=== PATIENT | male | born 1980 | race Caucasian/White ===

== ENCOUNTER 2024-11-29 08:23 | Emergency (ER) | payer OTHER, SELFPAY ==
--- NOTE | ~2024-11-29 | XR_ITS ---
XR shoulder RT min 2V Ordering provider: Tangela Corral History: . fall pain TO RT SHOULDER . Comparison: None. FINDINGS: BONES: Comminuted fracture in the proximal metaphysis of the right humerus. Possible fracture of the right fourth rib. JOINT SPACES: The acromioclavicular joint is normal. The glenohumeral joint is normal. SOFT TISSUES: Normal. IMPRESSION: Comminuted fracture of the proximal metaphysis of the right humerus. Possible fracture of the right fourth rib. Reviewed, dictated and finalized at location A. INSPECTOR
[2024-11-29 08:26] VITALS: BP 132/96; PULSE 108; RESP 16; TEMP 36.8; O2SAT 95
[2024-11-29 08:30] VITALS: BP 136/90; PULSE 108; RESP 16; O2SAT 100
[2024-11-29 09:00] VITALS: BP 138/82; PULSE 97; RESP 17; O2SAT 97
--- NOTE | 2024-11-29 09:29 | ED_ITS ---
HPI - Extremity Injury (Upper) General Chief Complaint: Extremity Injury, Upper Stated Complaint: Fall, shoulder pain Time Seen by Provider: 11/29/24 09:01 Source: patient Mode of arrival: EMS Limitations: no limitations History of Present Illness HPI narrative: Patient is a 44-year-old male who presents to the ED with report of right shoulder pain. Patient reports he tripped and fell walking up the stairs and h is R shoulder took the brunt of the fall. Complains of severe pain to right shoulder. Denies any other injury. Denies head injury or LOC. Denies neck or back pain. Denies rib pain. Denies numbness. Patient was given fentanyl in route to the ED by EMS. Related Data Allergies Allergy/AdvReac Type Severity Reaction Status Date / Time Penicillins Allergy Unknown Unknown Verified 11/29/24 08:33 Review of Systems Review of Systems: All systems reviewed & are unremarkable except as noted in HPI. All systems reviewed & are unremarkable except as noted in HPI and below Exam Narrative: GENERAL: Well appearing, obese with BMI of 34.8, non-toxic, in no acute distress. HEAD: Normocephalic, atraumatic. RESPIRATORY: Airway patent, respirations nonlabored. CARDIOVASCULAR: Regular rate and rhythm. Radial pulses strong and easily palpable MUSCULOSKELETAL: Moves all extremities. No gross deformities. Limited ROM of RUE due to pain. Focal TTP over proximal humerus/shoulder joint with swelling noted. Sensation intact throughout right upper extremity. Minimal tenderness over lateral epicondyle R elbow. Able to move at R wrist and fingers without pain. SKIN: Warm, dry, normal color. NEURO: A&O X3. Speech clear. Cranial nerves II-XII grossly intact. Steady gait. No ataxic movements. PSYCHIATRIC: Appropriate mood and affect. Normal interaction. Course Vital Signs Vital signs: Vital Signs Temperature 98.3 F 11/29/24 08:26 Pulse Rate 108 H 11/29/24 08:26 Respiratory Rate 16 11/29/24 08:26 Blood Pressure 132/96 H 11/29/24 08:26 Pulse Oximetry 95 11/29/24 08:26 Oxygen Delivery Room Air 11/29/24 08:26 Temperature 98.3 F 11/29/24 08:26 Pulse Rate 98 11/29/24 11:49 Respiratory Rate 20 11/29/24 11:49 Blood Pressure 127/73 11/29/24 11:49 Pulse Oximetry 98 11/29/24 11:49 Oxygen Delivery Room Air 11/29/24 08:26 MDM - Extremity Injury (Upper) MDM Narrative Medical decision making narrative: Patient presented to ED status post fall up the stairs, complaining of pain to right shoulder. Vital signs are stable. Mildly tachycardic, likely related to pain. He was given fentanyl en route to the ED by EMS. Denies wanting anything further for pain upon my initial evaluation. He is neurovascularly intact. Good radial pulses. Sensation intact. X-ray of right shoulder showing comminuted proximal right humerus fracture. Consistent with clinical picture. Does also show possible fracture right 4th rib. Patient does not have any tenderness along his anterior lateral ribcage. Denies pleuritic pain. Low suspicion for acute rib fracture. No evidence of pneumothorax. Oxygen is stable on room air. Patient placed in sling in the ED. Will discuss with Ortho. Discussed case with [facility] ortho for Dr. Cox, recommended referral to tertiary center. Discussed case with Dr. West, ortho @ [facility], can f/u in the clinic in 1 week. [phone] Patient agreement this plan. Feels comfortable with discharge home at this time. Pain medications sent to pharmacy. Given strict return precautions. Patient discharged in stable condition. Medical Records Attestation: I reviewed the patient's medical records. Imaging Data Attestation: I personally reviewed and interpreted this imaging study as follows: Radiologist's impression: ITS Impressions Shoulder X-Ray 11/29/24 08:59 IMPRESSION: Comminuted fracture of the proximal metaphysis of the right humerus. Possible fracture of the right fourth rib. Discharge Plan Discharge Clinical Impression: Fracture of proximal end of humerus Qualifiers: Encounter type: initial encounter Fracture type: closed Fracture morphology: other fracture Fracture alignment: displaced Laterality: right Qualified Code(s): S42.291A - Other displaced fracture of upper end of right humerus, initial encounter for closed fracture Fall on stairs Qualifiers: Encounter type: initial encounter Qualified Code(s): W10.9XXA - Fall (on) (from) unspecified stairs and steps, initial encounter Patient Disposition: Home, Self-Care Condition: Stable Instructions: Antibiotic Form, How to Use a Sling (ED), Proximal Humerus Fracture (ED) Additional Instructions: Follow-up with [facility] for further evaluation management of fracture. Call office to follow up in the clinic within the next 1 week - [phone]. Take imaging disc with you. Wear splint at all times for comfort and support. You may remove this while bathing or sleeping, but do not use arm. Recommend frequent icing to shoulder. Recommend Tylenol and ibuprofen around the clock as needed for pain. Oxycodone as needed for more severe/breakthrough pain. Take muscle relaxers as needed and prescribed. Recommend taking these at night as they may cause sedation. Do not drive, operate heavy machinery, drink alcohol while on muscle relaxers as this may cause further sedation. Return to the ED if you experience worsening or severe pain, recurrent fall or injury, numbness, or any other symptoms of concern. Patient Language: Luxembourgish Prescriptions: New oxycodone 5 mg tablet 5 mg PO Q6H PRN (Reason: pain) Qty: 20 0RF cyclobenzaprine 5 mg tablet 5 mg PO TID PRN (Reason: muscle spasm) Qty: 15 0RF Follow-up/Referrals: UNKNOWN,DOCTOR [Primary Care Provider] - Stand Alone Forms: Work/School Release IP Time of Disposition: 12:49
[2024-11-29 10:00] VITALS: BP 130/78; PULSE 99; RESP 16; O2SAT 98
[2024-11-29 11:49] VITALS: BP 127/73; PULSE 98; RESP 20; O2SAT 98
[2024-11-29] MEDS: HYDROmorphone HCL INJ (*CRX) 1 MG/ML SYR 0.5 MG IV PUSH (11:54)
[2024-11-29] MEDS: HYDROcodone/acetaminophen (*CRX) 5-325 MG TABLET 1 TAB PO (12:43)
[2024-11-29] MEDS: KETOROLAC 30 MG/ML VIAL (*BKC) IV PUSH (12:43)
== END 2024-11-29 13:26 | disposition home or self-care (01) ==
PROVIDERS: Emergency Provider Physician Assistant
DX: S42.291A Other displaced fracture of upper end of right humerus, initial encounter for closed fracture (principal); W10.9XXA Fall (on) (from) unspecified stairs and steps, initial encounter
CPT/HCPCS: 73030; 96374; 96375; 99284; A4565; A9270; J1171; J1885

== ENCOUNTER 2024-12-25 10:50 | Emergency (ER) | payer OTHER, SELFPAY ==
--- OUTSIDE RECORDS SUMMARY | 2024-12-25 10:52 | XMS_ITS | Encounter Summary ---
Author Organization [facility] Address [address] [place] [address] Phone Care Team Providers Care Human Resources Project Coordinator Name Role Phone Salvador Love MD Primary Care Provider Curry Short DPM Unavailable [phone] Fernando Beyer MD Unavailable Reason for Visit * Reason Comments Medication Refill Encounter Details Date Type Department Care Team (Late st Contact Info) Description 06/22/2020 Refill [facility] [address] [place] [address] Fernando Beyer MD [address] [place] [id number] Medication Refill Social History Tobacco Use Types Packs/Day Years Used Date Smoking Tobacco: Former Cigarettes 1 10 0 11/17/1999 - 11/17/2009 Smokeless Tobacco: Never Alcohol Use Standard Drinks/Week Comments Yes 0 (1 standard drink = 0.6 oz pure alcohol) 1x or 2x a wk - 2 or 3 drinks during those times PHQ-2 Answer Date Recorded PHQ-2 Score 0 07/20/2019 Sexually Active Control Partners Comments Yes Female Sex and Gender Information Value Date Recorded Sex Assigned at Not on file Legal Sex Male 3:09 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 STEWARD/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 Gender Identity Not on file Sexual Orientation Not on file documented as of this encounter Plan of Treatment Upcoming Encounters Date Type Department Care Team (Late st Contact Info) Description 12/28/2024 6:00 PM CHIEF STEWARD/STEWARDESS Office Visit [facility] [place], [place] [address] [place] [address] Salvador Love MD [address] [address] documented as of this encounter Visit Diagnoses Not on filedocumented in this encounter Additional Health Concerns Assessment Noted Time PHQ-9 Depression Total Score: 0 11/18/19 20 1:49 PM CHIEF STEWARD/STEWARDESS documented as of this encounter Care Teams Human Resources Project Coordinator Relationship Specialty Start Date End Date Salvador Love MD [id number] [address] PCP - General Family Medicine 10/17/15 Curry Short DPM [address] [address] Consulting Physician Podiatry 05/08/17 Fernando Beyer MD [address] [place] [address] Consulting Physician Neurology 12/02/22 documented as of this encounter
--- OUTSIDE RECORDS SUMMARY | 2024-12-25 10:52 | XMS_ITS ---
Author Organization [facility] Address [address] [place], [place] [id number] Care Team Providers Care Fishing Tool Supervisor Name Role Phone SALVATORE CLARK Unavailable [phone] Salvador Love Unavailable Unavailable Allergies Allergen (clinical drug ingredient) Drug/Non Drug Allergy documented on EMR Reaction Allergy Type Onset Date Status amoxicillin Amoxicillin Unknown Drug Allergy 04/20/2021 ac tive REASON FOR VISIT *General care Vital Signs Height 71.00 in 03/26/2024 Weight 270 lbs 03/26/2024 BMI 37.65 kg/m2 03/26/2024 Height-cm 180.34 cm 03/26/2024 Weight-kg 122.47 kg 03/26/2024 Encounters Encounter Location Date Provider Diagnosis [facility] [address] [place], [place] [id number] 03/26/2024 SALVATORE CLARK Fungal infection of nail B35.1 ; Pain in right toe(s) M79.674 ; Pain in left toe(s) M79.675 and Atherosclerosis of [place] arteries of extremities with intermittent claudication, bilateral legs I70.213 Assessments Encounter Date Diagnosis (ICD Code) Assessment Notes Treatment Notes Treatment Clinical Notes Section Notes 03/26/2024 Fungal infection of nail (ICD-10 - B35.1) 03/26/2024 Pain in right toe(s) (ICD-10 - M79.674) 03/26/2024 Pain in left toe(s) (ICD-10 - M79.675) 03/26/2024 Atherosclerosis of [place] arteries of extremities with intermittent claudication, bilateral legs (ICD-10 - I70.213) 03/26/2024 Other Nails 1-5 Bilateral were debrided extensively with nail nippers and emery board, reducing length and girth to pink healthy tissue with any subungual debris and necrotic tissue removed Plan Of Treatment Treatment Notes Assessment Notes Other Nails 1-5 Bilateral were debrided extensively with nail nippers and emery board, reducing length and girth to pink healthy tissue with any subungual debris and necrotic tissue removed Progress Notes * JEYSALVADOR PDOB:[birth year] (44 yo M)Acc No.[id number]:03/26/2024 Patient: SALVADOR CHÁVEZ Provider: Apolinar Clark DPM :1980 A ge:44 Y S ex:Male Date:03/26/2024 Address:[address] [place] [address] Subjective: * Chief Complaints: * 1 . *General care. * HPI: H PI: General care P atient presents to the office for diabetic foot care. Patient states that their nails are thickened, elongated and painful. Patient states that it is aggravated by shoe gear. Onset is gradual. Patient denies taking blood thinners. Date last seen by Dr. Love was 10/2023. Initials sea. * ROS: G eneral / Constitutional: Patient denies c hange in appetite, fatigue, chills, fever.? C ardiovascular: Chest pain d enies. N eurologic: Loss of use of extremity d enies. * Medical History: * Family History: F ather: PRN - Father: :: Cancer,,known absent . * Social History: M igrated Social History: M igrated Social History: Alcohol intake : , History of tobacco use : , Smoking Status : Former tobacco user. * Allergies: A moxicillin: Allergy - Onset Date 04/20/2021. Objective: * Vitals: W t:270lbs, Wt-k.47 kg, Ht: 71.00 in, Ht-cm: 180.34 cm, BMI:37.65Index, Body Surface Area: 2.47. * Examination: P hysical Examination: Gen: T he patient is awake, alert, well developed, well groomed and well nourished. They are in no apparent distress. . Musc: T here is no pain on palpation. Foot structure is normal bilateral . Derm: T here is absent hair growth on bilateral feet. There are pigmentary changes of bilateral foot. The skin color is red. The skin texture is thin and shiny. Distal cooling noted in bilateral feet. Nails are thick, discolored, and dystrophic with subungual debris. They are painful to palpation. . Neuro: G rossly intact to light touch bilateral . Vasc: P osterior tibialis pulse 0/4 bilaterally. Dorsalis pedis pulse 0/4 bilaterally. No edema noted. Capillary fill time > 3 seconds to all digits. . Assessment: * Assessment: 1. F ungal infection of nail - B35.1 (Primary) 2 . P ain in right toe(s) - M79.674 3 . P ain in left toe(s) - M79.675 4 . A therosclerosis of [place] arteries of extremities with intermittent claudication, bilateral legs - I70.213 Plan: * Treatment: * Billing Information: * Visit Code: 46014 Office Visit, Est Pt., Level 3. * Procedure Codes: * Sign off status: Completed true * Provider: Apolinar Clark DPM Date: 0 03/26/2024 Generated for Zoey morgan/Randell/Jenny on: 0 12/25/2024 10:52 AM WET PAN OPERATOR History and Physical Notes * HPI (History of Present Illness) Category Sub-Category Detail Notes Category Not es HPI General care Patient presents to the office for diabetic foot care. Patient states that their nails are thickened, elongated and painful. Patient states that it is aggravated by shoe gear. Onset is gradual. Patient denies taking blood thinners. Date last seen by Dr. Love was 10/2023. Initials sea Examination Category Sub-Category Detail Notes Category Not es Physical Examination Gen: The patient is awake, alert, well developed, well groomed and well nourished. They are in no apparent distress. Vasc: Posterior tibialis p ulse 0/4 bilaterally. Dorsalis pedis pulse 0/4 bilaterally. No edema noted. Capillary fill time > 3 seconds to all digits. Neuro: Grossly intact to li ght touch bilateral Musc: There is no pain on palpation. Foot structure is normal bilateral Derm: There is absent hair growth on bilateral feet. There are pigmentary changes of bilateral foot. The skin color is red. The skin texture is thin and shiny. Distal cooling noted in bilateral feet. Nails are thick, discolored, and dystrophic with subungual debris. They are painful to palpation.
--- OUTSIDE RECORDS SUMMARY | 2024-12-25 10:52 | XMS_ITS | Encounter Summary ---
Author Organization [facility] Address [address] [place] [address] Phone Care Team Providers Care Claims Attorney Name Role Phone Salvador Love MD Primary Care Provider Curry Short DPRed Unavailable [phone] Fernando Beyer MD Unavailable Reason for Visit * Reason Comments Medication Refill Encounter Details Date Type Department Care Team (Late st Contact Info) Description 12/05/[facility] [address] [place] [address] Salvador Love MD [address] [address] Medication Refill Social History Tobacco Use Types [...] file Legal Sex Male 3:09 AM CHIEF SUBSTATION OPERATOR Gender Identity Not on file Sexual Orientation Not on file COVID-19 Exposure Response Date Recorded In the last month, have you been in contact with someone who was confirmed or suspected to have Coronavirus / COVID-19? No / Unsure 11/06/2020 1:26 PM CHIEF SUBSTATION OPERATOR documented as of this encounter Plan of Treatment Upcoming Encounters Date Type Department Care Team (Late st Contact Info) Description 12/28/2024 6:00 PM CHIEF SUBSTATION OPERATOR Office [facility] [address] [place] [address] Salvador Love MD [address] [address] documented as of this encounter Visit Diagnoses Not on filedocumented in this encounter Additional Health Concerns Assessment Noted Time PHQ-9 Depression Total Score: 0 11/18/19 20 1:49 PM CHIEF SUBSTATION OPERATOR documented as of this encounter Care Teams Claims Attorney Relationship Specialty Start Date End Date Salvador Love MD [address] [address] PCP - General Family Medicine 10/17/15 Curry Short DPM [address] [address] Consulting Physician Podiatry 05/08/17 Fernando Beyer MD [address] [place] [address] Consulting Physician Neurology 12/02/22 documented as of this encounter
[2024-12-25 10:53] VITALS: BP 153/77; PULSE 111; RESP 20; TEMP 36.6; O2SAT 98
--- OUTSIDE RECORDS SUMMARY | 2024-12-25 10:53 | XMS_ITS | Clinical Summary ---
Author Organization [facility] [address] [place] [id number] Care Team Providers Care Order To Delivery Supervisor Name Role Phone Salvador Love MD Primary Care Provider + [phone] Allergies Active Allergy Reactions Criticality Noted Date Comments Amoxicillin Penicillins Other (See comments) Reaction: Unknown, Medications acetone, urine, test (acetone, urine, test) strip Test in case of nausea or vomiting of persistently elevated BG 100 strip 11 10/20/20 19 Active clotrimazole-beta methasone (LOTRISONE) cream APPLY TO RASH ON LEFT ANKLE TWICE DAILY 10/27/20 21 Active infusion set for insulin pump infusion set Change infusion set every 2 days. 50 each 3 02/12/20 22 Active amitriptyline (ELAVIL) 50 mg tablet 06/16/20 22 Active dorzolamide-timol oL (COSOPT) 22.3-6.8 mg/mL ophthalmic solution INSTILL ONE DROP INTO LEFT EYE TWICE DAILY 11/03/20 22 Active sildenafiL (VIAGRA) 100 mg tablet TAKE 1 TABLET BY MOUTH ONCE DAILY NEEDED FOR ERECTILE DYSFUNCTION 12/02/19 23 Active lisinopriL (PRINIVIL,ZESTRIL ) 5 mg tablet Take 1 tablet (5 mg total) by mouth daily 90 tablet 3 01/17/20 23 Active glucagon (Baqsimi) 3 mg/actuation spray,non-aerosol Administer 1 spray into one nostril as needed (hypoglycemia) 2 each 11 08/20/20 23 Active NovoLOG 100 unit/mL vial for injection Use via insulin pump up to 150 units daily 150 mL 3 03/15/20 24 Active atorvastatin (LIPITOR) 40 mg tabletIndications :Type 1 diabetes mellitus with hyperglycemia (HCC) TAKE 1 TABLET DAILY 90 tablet 1 08/24/20 24 Active fingolimod (GILENYA) 0.5 mg capsule 08/01/20 24 Active insulin glargine (LANTUS) 100 unit/mL (3 mL) pen for injectionIndicati ons:Type 1 diabetes mellitus with hyperglycemia (HCC) Inject 40 Units under the skin 2 (two) times a day If pump failure 24 mL 09/02/20 24 Active OneTouch Ultra Test stripIndications: Type 1 diabetes mellitus with hyperglycemia (HCC) USE FOR BLOOD GLUCOSE MONITORING 5 TIMES DAILY 450 strip 3 09/02/20 Active pen needle, diabetic (Pen Needle) 31 gauge x 5/16 needleIndications :Type 1 diabetes mellitus with hyperglycemia (HCC) Use to inject 2 times daily for Lantus when off pump 100 each 11 09/02/20 24 Active insulin syringe-needle U-100 (BD Insulin Syringe Ultra-Fine) 0.5 mL 31 gauge x 5/16 syringeIndication s:Type 1 diabetes mellitus with hyperglycemia (HCC) USE NEW SYRINGE FOUR TIMES A DAY WHEN OFF INSULIN PUMP 200 each 11 09/07/20 24 Active Farxiga 10 mg tabletIndications :Type 1 diabetes mellitus with hyperglycemia (HCC) Take 1 tablet (10 mg total) by mouth daily 90 tablet 3 10/18/20 24 Active Active Problems Problem Noted Date Diagnosed Date Class 2 severe obesity due t o excess calories with serious comorbidity and body mass index (BMI) of 36.0 to 36.9 in adult 09/02/2024 Assessment & Plan (09/02/2024 3:08 PM CDT): Discussed healthy diet and importance of regular physical activity (20- 30min/day, 150min/wk). Hypertension associated with diabetes 05/16/2021 Assessment & Plan (09/02/2024 2:55 PM CDT): Chronic problem. Controlled on current lisinopril 5mg daily Assessment & Plan (08/20/2023 4:30 PM CDT): Chronic, well-controlled Continue lisinopril Will update microalbumin Assessment & Plan (01/16/2023 2:56 PM COMPENSATION AGENT): Chronic, well controlled Importance of low salt diet and exercise were discussed Continue current meds, including Lisinopril Assessment & Plan (07/11/2022 11:00 AM CDT): Controlled on current medications, no changes. Assessment & Plan (01/21/2022 1:19 PM COMPENSATION AGENT): Controlled on current medications, no changes. Assessment & Plan (05/16/2021 2:55 PM CDT): Goal blood pressure is less than 140/85 Low salt diet was discussed andd recommended The importance of daily aerobic exercise was also emphasized. Continue current meds, including MICAELA-I or ARB, e.g. 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 To see if additional surgery needed before summer on OS. Sleep disturbance 12/16/2018 Assessment & Plan (01/21/2022 3:14 PM COMPENSATION AGENT): Worsening problem, not related to CBGs as well controlled including overnight. Discussed OTC sleep aids, but recommend he be evaluated by PCP to see if further work up is needed (prostate, sleep study, etc). He will schedule. Assessment & Plan (12/16/2018 1:12 PM COMPENSATION AGENT): Diff dx includes: increased nocturia with SGLT2-will adjust pump rates for this time. Sleep apnea-can ask spouse to monitor or discuss sleep study with PCP. Caffeine or liquid intake during the day and evening. Advised to limit amounts later in the day. Can try OTC melatonin. 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 Near goal on current Atorvastatin 40mg. Last lipid panel: 11/03/23 LDL=79, YJ=686. Assessment & Plan (03/04/2024 4:32 PM CDT): Chronic, stable Continue statin therapy with atorvastatin Assessment & Plan (08/20/2023 4:30 PM CDT): Chronic, well-controlled Continue statin therapy with atorvastatin 40 mg daily Assessment & Plan (01/16/2023 2:57 PM COMPENSATION AGENT): Chronic, well controlled Low fat Low cholesterol diet Exercise Continue statin therapy with Atorvastin Assessment & Plan (07/11/2022 12:50 PM CDT): Chronic problem. On statin therapy, no changes. Assessment & Plan (01/21/2022 1:19 PM COMPENSATION AGENT): Chronic problem. On statin therapy, no changes. Assessment & Plan (05/16/2021 2:55 PM CDT): Goal of treatment , LDL cholesterol less than 100 ( less than 70 in patients with history of heart attacks and / or strokes ) NonHDL cholesterol ( total cholesterol minus HDL cholesterol ) goal less than 130 ( less than 100 in patients with history of heart attacks and / or strokes ) Low cholesterol, low fat diet was discussed and advised. Daily exercise On statin therapy with Lipitor Assessment & Plan (03/06/2021 8:20 AM CDT): Continue statin therapy Assessment & Plan (11/14/2020 11:06 AM COMPENSATION AGENT): Continue statin medication Assessment & Plan (06/26/2020 11:55 AM CDT): Goal of treatment , LDL cholesterol less than 100 ( less than 70 in patients with history of heart attacks and / or strokes ) NonHDL cholesterol ( total cholesterol minus HDL cholesterol ) goal less than 130 ( less than 100 in patients with history of heart attacks and / or strokes ) Low cholesterol, low fat diet was discussed and advised. Daily exercise On statin therapy Increase Lipitor to 40 mg daily Assessment & Plan (05/18/2020 3:42 PM CDT): Check lipid panel Assessment & Plan (01/03/2020 1:10 PM COMPENSATION AGENT): Continue atorvastatin Assessment & Plan (10/20/2019 12:54 PM COMPENSATION AGENT): Goal of treatment , LDL cholesterol less than 100 ( less than 70 in patients with history of heart attacks and / or strokes ) NonHDL cholesterol ( total cholesterol minus HDL cholesterol ) goal less than 130 ( less than 100 in patients with history of heart attacks and / or strokes ) Low cholesterol, low fat diet was discussed and advised. Daily exercise On statin therapy Assessment & Plan (06/15/2019 1:08 PM CDT): Goal of treatment , LDL cholesterol less than 100 ( less than 70 in patients with history of heart attacks and / or strokes ) NonHDL cholesterol ( total cholesterol minus HDL cholesterol ) goal less than 130 ( less than 100 in patients with history of heart attacks and / or strokes ) Low cholesterol, low fat diet was discussed and advised. Daily exercise On statin therapy Assessment & Plan (12/16/2018 10:13 AM COMPENSATION AGENT): Continue current dose of statin Assessment & Plan (04/23/2018 10:14 AM CDT): Increase Lipitor 20 mg qd Relapsing remitting multiple sclerosis 7 Overview (07/31/2017): Overview: Discussed risks of different medication regiments. Available modalities to monitor for side effects explained. Also dicussed that we are in the process of contacting his insurance company as well as the drug covered button maker. Given his initial MRI showing a very aggressive form of MS, we do believe he will be irreparable harmed of treatment is interrupted. Discussed continuing tysabri for another year and then may reconsider other treatment options. Type 1 diabetes mellitus with hyperglycemia 07/2017 Assessment & Plan (09/02/2024 2:54 PM CDT): Chronic problem. A1c improved from 7.4% 03/04/24 to now 7.1%. Current medications: Farxiga 10 mg Novolog via Medtronic 780G BR one: 12a 1.85, 4a 1.85, 6a 1.85, 8a 1.3, 12p 1.4, 3p 1.35, 5p 1.55, 6p 1.85 (Not using) BR two: 12a 1.85, 4a 1.4, 6a 1.25, 10a 1.25, 2p 1.35, 4p 1.85, 6p 1.9, 630p 1.95 CR 12a 2, 630a 2.3, 12p 2, 6p 1.9, 9p 4 CF 12 Target 120 AIT 2 hours UTD on eye exam (02/05/24 PDR OU, q3mo injections [employer] Omer). UTD on labs. Discussed with Salvador Gonzalez: Strive for regular exercise (30min most days) and diet (get at least 4-5 servings of fruit and veggies daily, avoid processed foods, increase lean protein intake and decrease carb portions as well as fruit juices, regular soda & desserts). Watch carbs and simple sugars. Check the blood sugar: Guardian. Check the feet daily for skin breakdown and infection. Assessment & Plan (03/04/2024 4:32 PM CDT): Chronic, stable Continue Medtronic insulin pump at current settings Continue Farxiga Diet and exercise were discussed Assessment & Plan (08/20/2023 4:29 PM CDT): Hba1c was Lab Results Component Value Date HGBA1C 7.3 08/20/2023 today, indicating suboptimal DM control Goal Hba1c and blood glucose explained Diet and exercise were advised Prevention and treatment of hyypoglcyemia were discussed with the patient Blood glucose monitoring : Continue CGM with guardian Adjustment to medications: Continue pump at current settings I advised the patient against overdosing with injections and to wait for glucose to come down after taking boluses Assessment & Plan (01/16/2023 2:56 PM COMPENSATION AGENT): Hba1c was Lab Results Component Value Date HGBA1C 7.9 01/16/2023 today, indicating suboptimal DM control Goal Hba1c and blood glucose explained Diet and exercise were advised Prevention and treatment of hyypoglcyemia were discussed with the patient Blood glucose monitoring : continue CGM with Guardian Adjustment to medications: Continue pump at current settings Continue Farxiga Risk of DKA was discussed. Pt to test for ketones in case of abdominal pain, N/ V , which might be indicative of DKA Assessment & Plan (07/11/2022 12:52 PM CDT): Chronic stable problem. No medication changes. Will update his supplies rx gave him some samples today. Also update routine labs today. Assessment & Plan (01/21/2022 3:13 PM COMPENSATION AGENT): Chronic problem, stable per A1c and download. No pump setting changes today. Assessment & Plan (05/16/2021 2:54 PM CDT): Hba1c was Lab Results Component Value Date HGBA1C 7.5 05/16/2021 today, indicating inadequate DM control Goal blood sugars in the 120-150 range , with Hb1c under 7.0 % was explained 1800 calorie, consistent carb diet recommended. No more than 30-45 grams of carbs per meal recommended, as well as avoiding high concentrated sweet drinks . 25-45 min daily exercise, combining both aerobic and resistance exercise recommended. The need to monitor blood glucose before meals and bedtime was discussed. Prevention and treatment of hyypoglcyemia discussed. Pump settings adjusted, lowering IC to 2 Assessment & Plan (03/06/2021 8:33 AM CDT): A1c 7.5. BG pattern a bit elevated pc lunch but then BG will drop d/t level of activity with sports. He has accounted for this. RE; potential site issues, he is rotating site. Provided with Sure T samples. Can upgrade to 8 or 10 mm. Perhaps consider GLP-1 Assessment & Plan (11/14/2020 11:04 AM COMPENSATION AGENT): A1c 7.9, worsening. Some d/t pc excursions from not bolusing 10 minutes ac. Advised. Will adjust noon basal to prevent afternoon lows. Foot care specifics reviewed. Recommend that he seen new manager sustainability when able. Assessment & Plan (06/26/2020 11:56 AM CDT): Hba1c was Lab Results Component Value Date HGBA1C 7.6 06/26/2020 today, indicating sub-optimal DM control 1800 calorie, consistent carb diet recommended. No more than 30-45 grams of carbs per meal recommended, as well as avoiding high concentrated sweet drinks . 25-45 min daily exercise, combining both aerobic and resistance exercise recommended. The need to monitor blood glucose before meals and bedtime was discussed. Prevention and treatment of hyypoglcyemia discussed. Insulin dose: Continue pump at current settings Pt very upset about MM sensors, would consider changing to DEXCOM, but then would have to go with Tandem pump Assessment & Plan (05/18/2020 3:44 PM CDT): A1c 7.8. He is in range with automode > 80% of the time. Elevated BG post hs snack. Will fine tune pump settings to address this. Assessment & Plan (01/03/2020 1:14 PM COMPENSATION AGENT): Main BG pattern is elevated BG pc. Will adjust IC to 3. Also noting max microboluses during the day at various times. Will adjust AI. Recommend that he see manager sustainability. Foot care reviewed. Assessment & Plan (10/20/2019 12:54 PM COMPENSATION AGENT): Hba1c was Lab Results Component Value Date HGBA1C 8.1 10/20/2019 today, indicating inadequate DM control 1800 calorie, consistent carb diet recommended. No more than 30-45 grams of carbs per meal recommended, as well as avoiding high concentrated sweet drinks . 25-45 min daily exercise, combining both aerobic and resistance exercise recommended. The need to monitor blood glucose before meals and bedtime was discussed. Prevention and treatment of hyypoglcyemia discussed. Insulin dose: Pump set to automode Will have MM adjunct trainer to contact pt. Might need to adjust IC ration Continue Invokana Risks of DKA with Invokana was discussed Pt has ketosticks Assessment & Plan (06/15/2019 1:07 PM CDT): Hba1c was Lab Results Component Value Date HGBA1C 7.7 % 06/15/2019 today, indicating ... DM control 1800 calorie, consistent carb diet recommended 25-45 min daily exercise, combining both aerobic and resistance exercise recommended. The need to monitor blood glucose before meals and bedtime was discussed. Dose of basal and prandial insulin adjusted as follows: Continue pump at current settings Strongly advised to start using sensors to go with automode. He seems to agree Prevention and treatment of hyypoglcyemia discussed. Assessment & Plan (03/17/2019 12:12 PM CDT): A1c worsening at 8.3. FBG at goal. Issue is related to eating especially snacks, without bolusing. Self aware of poor compliance with diet. Will not recommend changes to settings at this time. Discussed benefit of using sensor with 670. Still not interested at this time. Assessment & Plan (12/16/2018 1:16 PM COMPENSATION AGENT): A1c 8.1. Pattern of elevated BG pc dinner that continues to MN. BG < 100 around 0600. Will adjust pump settings for this. Improved pc dinner BG may reduce increased urination from SGLT 2 at night. Additionally advised to follow up with PCP or Derm if rash on arm does not improve. R/O autoimmune causes. Assessment & Plan (08/28/2018 9:23 AM CDT): A1c 7.6. Will adjust basal casing splitter to address hypoglycemia. Has good understanding of pump and BG patterns. I have encouraged him to call or upload pump if he notices patterns or need to adjust correction prior to next appointment. Assessment & Plan (04/23/2018 10:11 AM CDT): Your Hba1c today was: Lab Results Component Value Date HGBA1C 8.1 04/23/2018 meaning a 3 month average sugar of : 184 Your goal hba1c is under 7.0 to prevent longterm diabetes complications ( eye , kidney and nerve damage ) . Your goal sugars are in the 90-130 range Daily aerobic ( walking, riding a bike, swimming ) and resistance exercises ( light weight lifting, resistance band stretching ) for at least 30 minutes is recommended If you can not walk, chair exercises is very acceptable. As little as 15-20 minutes exercise , in one or two sessions a day, is still very helpful and will help to improve your diabetes control . Eat small portion meals, no more than 1800 calories Diet Try to eat not more than than 2-3 servings of carbs ( starches ) wiith your meals. Avoid soft drinks, including regular sodas , fruit juices and sweetened tea. Drink water instead. Eat plenty of green and leafy vegetables, including salads. Take your medications regularly,including your insulin injections. Monitor your sugar levels with finger sticks regularly and keep a log sheet or book. Bring your sugar meter and /or a log book or log sheet to every office visit. Pump settings: Basal rates: 12a 1.65 4a 1.6 6a 1.45 10a 1.05 4p 1.5 630 p 1.8 IC 3.5 SF 13 T 100-110 AIT 4h Assessment & Plan (01/21/2018 10:17 AM COMPENSATION AGENT): A1c 7.5. Main pattern is afternoon lows. Activity will be increasing with sports at school. Will lower basal rate. Assessment & Plan (10/30/2017 4:11 PM COMPENSATION AGENT): A1c 7.9, no change however considering MS exacerbation, steroids and not bolusing for pm snacks, likely would be improved. BG goals reviewed. Will call before next OV if more steroids are prescribed. Will need to check 5-6 times per day during that time. Assessment & Plan (07/31/2017 4:29 PM CDT): A1c improving at 7.9. Will adjust basal rates for after dinner. Advised more focus on carb counting and types of food at that time. Insulin pump status 04/25/2017 Assessment & Plan (09/02/2024 3:28 PM CDT): No pump setting changes Assessment & Plan (01/16/2023 2:58 PM COMPENSATION AGENT): Pt knows he needs to take long acting insulin with Tresiba ( sample provided ),40 units q24 and to bolus with Humalog and syringes in case of pump failure Assessment & Plan (07/11/2022 12:49 PM CDT): No pump setting changes. Assessment & Plan (01/21/2022 1:40 PM COMPENSATION AGENT): No pump setting changes. Assessment & Plan (03/06/2021 8:28 AM CDT): Continue current settings Assessment & Plan (11/14/2020 11:05 AM COMPENSATION AGENT): Lower noon basal to 1.55. If still experiencing need to have candy to prevent lows, advised to lower to 1.5 Assessment & Plan (06/26/2020 11:57 AM CDT): Have long acting , basal insulin ( e.g. Lantus, Levemir, NPH, ) and insulin syringes as back up in case of pump failure If you have to take your insulin pump off for more than 12 h, start taking basal insulin, every 24 h ( take 80 % of the 24 h insulin delivered to you via insulin pump as calculated based on your basal rates ) and inject meal time insulin by injections, calculating the same way you do with your pump bolus ( according with carb intake and blood sugar readings ) Assessment & Plan (05/18/2020 3:43 PM CDT): Change IC at hs to 5 to prevent lows post snack. Raise overnight target to 120. Lower AI to 3 hours Assessment & Plan (01/03/2020 1:23 PM COMPENSATION AGENT): Change AI to 3.15. If continues with pc excursions, will change to 2. Change IC to 3. Assessment & Plan (10/20/2019 12:55 PM COMPENSATION AGENT): Have long acting , basal insulin ( e.g. Lantus, Levemir, NPH, ) and insulin syringes as back up in case of pump failure If you have to take your insulin pump off for more than 12 h, start taking basal insulin, every 24 h ( take 80 % of the 24 h insulin delivered to you via insulin pump as calculated based on your basal rates ) and inject meal time insulin by injections, calculating the same way you do with your pump bolus ( according with carb intake and blood sugar readings ) Assessment & Plan (03/17/2019 12:11 PM CDT): No change to current settings. Assessment & Plan (12/16/2018 1:14 PM COMPENSATION AGENT): Reduce 0400 basal to 1.55. If continues with FBG < 100 , then to reduce to 1.5. Intensify 6 pm IC to 3.0. Assessment & Plan (08/28/2018 9:21 AM CDT): Reduce 4 am basal to 1.6. If FBG continue < 100 advised to lower to 1.55. Add new lower basal at 2 pm to address potential for hypoglycemia at 3-4 pm. May need to consider adjust SF/or IC. in the evening Assessment & Plan (04/23/2018 10:13 AM CDT): Have long acting , basal insulin ( e.g. Lantus, Levemir, NPH, ) and insulin syringes as back up in case of pump failure If you have to take your insulin pump off for more than 12 h, start taking basal insulin, every 24 h ( take 80 % of the 24 h insulin delivered to you via insulin pump as calculated based on your basal rates ) and inject meal time insulin by injections, calculating the same way you do with your pump bolus ( according with carb intake and blood sugar readings ) Assessment & Plan (01/21/2018 10:13 AM COMPENSATION AGENT): Lower 4 pm basal from 1.5 to 1.4 to address afternoon lows. Assessment & Plan (10/30/2017 4:08 PM COMPENSATION AGENT): No change to pump settings as basal/bolus ratio appropriate and pm hyperglycemia is from forgetting to bolus for snacks. Encourage to do this. Assessment & Plan (07/31/2017 4:27 PM CDT): Decrease 0600 basal to 1.45, increase 630 pm to 1.8. If continues to have higher sugars after dinner will add increased IC at that time. Hyperlipidemia 11/24/2015 Assessment & Plan (03/17/2019 10:50 AM CDT): LDL at goal. Continue statin Assessment & Plan (08/28/2018 9:20 AM CDT): At goal on current medications. Assessment & Plan (01/21/2018 10:11 AM COMPENSATION AGENT): Continue statin Assessment & Plan (10/30/2017 4:07 PM COMPENSATION AGENT): Continue statin Assessment & Plan (07/31/2017 4:26 PM CDT): Controlled on statin Medical History Medical History Date Comments Diabetes mellitus (HCC) Diabetes mellitus Multiple sclerosis (HCC) Multipl e sclerosis Retinal hemorrhage 07/20/2019 Numerous surg eries left eye Family History Medical History Relation Name Comments Other Father 2 Alive and well; Other Mother 2 Alive and well; Relation Name Status Comments Father 1 Alive Father 2 Mother 1 Alive Mother 2 Social History Tobacco Use Types Packs/Day Years Used Date Smoking Tobacco: Former Smokeless Tobacco: Never Tobacco Cessation:Counseling Given: Not Answered Alcohol Use Standard Drinks/Week Comments Yes 0 (1 standard drink = 0.6 oz pur e alcohol) PHQ-2 Answer Date Recorded PHQ-2 Total Score (If total score is 3 or more points, staff should administer the PHQ-9) 0 05/16/2021 Personal Safety Answer Date Recorded Getting School Help Needed Not on file 12/20 Sex and Gender Information Value Date Recorded Sex Assigned at Not on file Legal Sex Male 4:23 PM COMPENSATION AGENT Gender Identity Not on file Sexual Orientation Straight 04/27/2020 5: 24 PM CDT Obstetrics History Last Filed Vital Signs Vital Sign Reading Time Taken Comments Blood Pressure 112/74 09/02/2024 2:23 PM CDT Pulse 70 09/02/2024 2:23 PM CDT Temperature 36.4 C (97.5 F) 05/18/2020 9:29 AM CDT Respiratory Rate 18 09/02/2024 2:23 PM CDT Oxygen Saturation - - Inhaled Oxygen Concentration - - Weight 110.7 kg (244 lb) 09/02/2024 2:23 PM CDT Height 175.3 cm (5' 9.02 ) 09/02/2024 2:23 PM CD T Body Mass Index 36.02 09/02/2024 2:23 PM CDT Plan of Treatment Health Maintenance Due Date Last Done Comments Hepatitis C Screening 1981 Varicella Vaccines (1 of 2 - 13+ 2-dose series) 1994 Hepatitis B Screening 1999 Regular Well Visit/Exam 18-64 1999 Pneumococcal vaccine <65 (2 of 2 - PCV) 06/29/2011 06/29/2010 Depression Screening 05/16/2022 05/16/2021, 06/26/2020, 10/20/2019, Additional history exists DTaP/Tdap/Td Vaccine (3 - Td or Tdap) 06/23/2023 06/23/2013, 06/17/2013 TSH Level 07/11/2023 07/11/2022, 07/01/2018 Covid-19 Vaccine ( season) 2024 02/03/2021, 01/06/2021 Influenza Vaccine (#1) 2024 , 08/28/2022, 09/28/2021, Additional history exists Albumin Creatinine Ratio, Urine 11/03/2024 11/03/2023, 08/28/2023, 07/11/2022, Additional history exists Lipid Panel 11/03/2024 11/03/2023, 10/17, 05/21/2023, Additional history exists eGFR 11/03/2024 11/03/2023, 06/18, 07/01/2018 Hemoglobin A1C 03/03/2025 09/02/2024, 02/15, 08/20/2023, Additional history exists Dilated Eye Exam 03/05/2025 03/05/2024, , 05/31/2019, Additional history exists Foot Exam 09/02/2025 09/02/2024, 02/2023, 01/21/2022, Additional history exists HPV Vaccines Aged Out No longer eligi ble based on patient's age to complete this topic Procedures Procedure Name Priority Date/Time Associated Diagnosis Comments POCT HEMOGLOBIN A1C Routine 09/02/2024 2 :36 PM CDT Type 1 diabetes mellitus with hyperglycemia (HCC) DIABETES EYE EXAM Routine 03/05/2024 7:58 AM CDT COMPREHENSIVE METABOLIC PANEL Routine 11/03/2023 11:00 AM COMPENSATION AGENT ALBUMIN CREATININE RATIO, URINE Routine 11/03/2023 11:00 AM COMPENSATION AGENT LIPID PANEL Routine 11/03/2023 TSH Routine 07/11/2022 11:09 AM CDT Type 1 diabetes mellitus with hyperglycemia (HCC) from Last 3 Months or Most Recently Relevant to Health Maintenance Results * (ABNORMAL) POCT hemoglobin A1c (09/02/2024 2:36 PM CDT) Hemoglobin A1C, POC 7.1 4.0 - 5.6 % Blood 09/02/2024 2:36 PM CDT Ashanti Estrada NP POINT OF CARE TEST ORDERA BLES Final Result * DIABETES EYE EXAM (03/05/2024 7:58 AM CDT) Historical Provider MD HEALTH MAINTENANCE Final Result * Albumin Creatinine Ratio, Urine (11/03/2023 11:00 AM COMPENSATION AGENT) SCRIBED Creatinine, Urine 75.6 NA - NA EXTERNAL LAB SCRIBED Microalbumin <0.50 NA - NA EXTERNAL LAB SCRIBED Microalb/Creat Ratio NA NA - NA EXTERNAL LAB Urine 11/03/2023 11:0 0 AM COMPENSATION AGENT Historical Provider LAB URINE ORDERABLES Edit ed Result - Final EXTERNAL LAB * (ABNORMAL) Comprehensive metabolic panel (11/03/2023 11:00 AM COMPENSATION AGENT) SCRIBED Sodium 140 136 - 145 mmol/L EXTERNAL LAB SCRIBED Potassium 4.7 3.5 - 5.1 mmol/L EXTERNAL LAB SCRIBED Chloride 107 98 - 107 mmol/L EXTERNAL LAB SCRIBED Carbon Dioxide 27 22 - 30 mmol/L EXTERNAL LAB SCRIBED Anion Gap 10.7 <18.0 - NA mmol/L EXTERNAL LAB SCRIBED Urea Nitrogen (BUN) 16 9 - 21 mg/dl EXTERNAL LAB SCRIBED Creatinine 0.79 0.70 - 1.30 mg/dl EXTERNAL LAB SCRIBED Glucose 162(A) 70 - 99 mg/dl EXTERNAL LAB SCRIBED Calcium 9.1 8.7 - 10.5 mg/dl EXTERNAL LAB SCRIBED Bilirubin 0.4 0.2 - 1.2 mg/dl EXTERNAL LAB SCRIBED Plasma Protein 6.7 6.3 - 8.2 g/dl EXTERNAL LAB SCRIBED Albumin 4.1 3.5 - 5.0 g/dl EXTERNAL LAB SCRIBED Alkaline Phosphatase 83 40 - 150 Units/L EXTERNAL LAB SCRIBED Alanine Transaminase (ALT) 27 0 - 55 Units/L EXTERNAL LAB SCRIBED Aspartate Transaminase (AST) 16 5 - 34 Units/L EXTERNAL LAB SCRIBED eGFR in NonAfrican [place]er 60 >=60 - NA EXTERNAL LAB Blood 11/03/2023 11:0 0 AM COMPENSATION AGENT Historical Provider LAB BLOOD ORDERABLES Edit ed Result - Final EXTERNAL LAB * (ABNORMAL) HM LIPID PANEL (11/03/2023) SCRIBED Cholesterol, Total 150 SCRIBED Triglycerides 157 SCRIBED HDL 40 SCRIBED VLDL Cholesterol Calculator 79 11/03/2023 Historical Provider HEALTH MAINTENANCE Final Result * TSH (07/11/2022 11:09 AM CDT) Thyroid Stimulating Hormone 2.41 0.30 - 4.20 mcIUnit/mL [facility] Blood 07/11/2022 11:0 9 AM CDT 07/11/2022 2:23 PM CDT [facility] MAIN LAB BLOOD ORDERABLES nal Result CAITLIN ODEN [id number] [address] Department of Laboratories [place], [place] [id number] from Last 3 Months or Most Recently Relevant to Health Maintenance Insurance [facility] Care Teams Order To Delivery Supervisor Relationship Specialty Start Date End Date Salvador Love MD [address] [address] PCP - General 02/14/17
--- OUTSIDE RECORDS SUMMARY | 2024-12-25 10:53 | XMS_ITS | Referral Summary ---
Author Organization [facility] Physician Office Building [address] [place] [id number] Care Team Providers Care Felt Finisher Name Role Phone Salvador Love MD Primary Care Provider + [phone] Allergies Active Allergy Reactions Criticality Noted Date [...] microalbumin Assessment & Plan (01/16/2023 2:56 PM CAREER PORTALS TEACHER): Chronic, well controlled Importance of low salt diet and exercise were discussed Continue current meds, including Lisinopril Assessment & Plan (07/11/2022 11:00 AM CDT): Controlled on current medications, no changes. Assessment & Plan (01/21/2022 1:19 PM CAREER PORTALS TEACHER): Controlled on current medications, no changes. Assessment [...] spec Assessment & Plan (11/14/2020 11:05 AM CAREER PORTALS TEACHER): Continue follow up with retina spec as scheduled Assessment & Plan (06/26/2020 12:01 PM CDT): Under retinologist's care Assessment & Plan (01/03/2020 1:11 PM CAREER PORTALS TEACHER): He will continue follow up with retinal spec. To see if additional surgery needed before summer on OS. Sleep disturbance 12/16/2018 Assessment & Plan (01/21/2022 3:14 PM CAREER PORTALS TEACHER): Worsening problem, not related to CBGs as well controlled including overnight. Discussed OTC sleep aids, but recommend he be evaluated by PCP to see if further work up is needed (prostate, sleep study, etc). He will schedule. Assessment & Plan (12/16/2018 1:12 PM CAREER PORTALS TEACHER): Diff dx includes: increased nocturia with SGLT2-will [...] Atorvastatin 40mg. Last lipid panel: 11/03/23 LDL=79, CW=823. Assessment & Plan (03/04/2024 4:32 PM CDT): Chronic, stable Continue statin therapy with atorvastatin Assessment & Plan (08/20/2023 4:30 PM CDT): Chronic, well-controlled Continue statin therapy with atorvastatin 40 mg daily Assessment & Plan (01/16/2023 2:57 PM CAREER PORTALS TEACHER): Chronic, well controlled Low fat Low cholesterol diet Exercise Continue statin therapy with Atorvastin Assessment & Plan (07/11/2022 12:50 PM CDT): Chronic problem. On statin therapy, no changes. Assessment & Plan (01/21/2022 1:19 PM CAREER PORTALS TEACHER): Chronic problem. On statin therapy, no changes. [...] therapy Assessment & Plan (11/14/2020 11:06 AM CAREER PORTALS TEACHER): Continue statin medication Assessment & Plan (06/26/2020 [...] panel Assessment & Plan (01/03/2020 1:10 PM CAREER PORTALS TEACHER): Continue atorvastatin Assessment & Plan (10/20/2019 12:54 PM CAREER PORTALS TEACHER): Goal of treatment , LDL cholesterol less [...] therapy Assessment & Plan (12/16/2018 10:13 AM CAREER PORTALS TEACHER): Continue current dose of statin Assessment & Plan (04/23/2018 10:14 AM CDT): Increase Lipitor 20 mg qd Relapsing remitting multiple sclerosis 7 Overview (07/31/2017): Overview: Discussed risks of different medication regiments. Available modalities to monitor for side effects explained. Also dicussed that we are in the process of contacting his insurance company as well as the drug plastic surgery nurse. Given his initial MRI showing a very [...] (02/05/24 PDR OU, q3mo injections [facility] [place]). UTD on labs. Discussed with Salvador Gonzalez: [...] boluses Assessment & Plan (01/16/2023 2:56 PM CAREER PORTALS TEACHER): Hba1c was Lab Results Component Value Date [...] today. Assessment & Plan (01/21/2022 3:13 PM CAREER PORTALS TEACHER): Chronic problem, stable per A1c and download. [...] GLP-1 Assessment & Plan (11/14/2020 11:04 AM CAREER PORTALS TEACHER): A1c 7.9, worsening. Some d/t pc excursions from not bolusing 10 minutes ac. Advised. Will adjust noon basal to prevent afternoon lows. Foot care specifics reviewed. Recommend that he seen new collar fuser when able. Assessment & Plan (06/26/2020 11:56 [...] this. Assessment & Plan (01/03/2020 1:14 PM CAREER PORTALS TEACHER): Main BG pattern is elevated BG pc. Will adjust IC to 3. Also noting max microboluses during the day at various times. Will adjust AI. Recommend that he see collar fuser. Foot care reviewed. Assessment & Plan (10/20/2019 12:54 PM CAREER PORTALS TEACHER): Hba1c was Lab Results Component Value Date [...] Pump set to automode Will have MM driver trainer to contact pt. Might need to [...] time. Assessment & Plan (12/16/2018 1:16 PM CAREER PORTALS TEACHER): A1c 8.1. Pattern of elevated BG pc [...] AM CDT): A1c 7.6. Will adjust basal gate mortiser operator to address hypoglycemia. Has good understanding of [...] goal hba1c is under 7.0 to prevent usp diabetes complications ( eye , kidney and [...] 4h Assessment & Plan (01/21/2018 10:17 AM CAREER PORTALS TEACHER): A1c 7.5. Main pattern is afternoon lows. Activity will be increasing with sports at school. Will lower basal rate. Assessment & Plan (10/30/2017 4:11 PM CAREER PORTALS TEACHER): A1c 7.9, no change however considering MS [...] changes Assessment & Plan (01/16/2023 2:58 PM CAREER PORTALS TEACHER): Pt knows he needs to take long acting insulin with Tresiba ( sample provided ),40 units q24 and to bolus with Humalog and syringes in case of pump failure Assessment & Plan (07/11/2022 12:49 PM CDT): No pump setting changes. Assessment & Plan (01/21/2022 1:40 PM CAREER PORTALS TEACHER): No pump setting changes. Assessment & Plan (03/06/2021 8:28 AM CDT): Continue current settings Assessment & Plan (11/14/2020 11:05 AM CAREER PORTALS TEACHER): Lower noon basal to 1.55. If still [...] hours Assessment & Plan (01/03/2020 1:23 PM CAREER PORTALS TEACHER): Change AI to 3.15. If continues with pc excursions, will change to 2. Change IC to 3. Assessment & Plan (10/20/2019 12:55 PM CAREER PORTALS TEACHER): Have long acting , basal insulin ( [...] settings. Assessment & Plan (12/16/2018 1:14 PM CAREER PORTALS TEACHER): Reduce 0400 basal to 1.55. If continues [...] ) Assessment & Plan (01/21/2018 10:13 AM CAREER PORTALS TEACHER): Lower 4 pm basal from 1.5 to 1.4 to address afternoon lows. Assessment & Plan (10/30/2017 4:08 PM CAREER PORTALS TEACHER): No change to pump settings as basal/bolus [...] medications. Assessment & Plan (01/21/2018 10:11 AM CAREER PORTALS TEACHER): Continue statin Assessment & Plan (10/30/2017 4:07 PM CAREER PORTALS TEACHER): Continue statin Assessment & Plan (07/31/2017 4:26 PM CDT): Controlled on statin Social History Tobacco Use Types Packs/Day Years [...] on file Legal Sex Male 4:23 PM CAREER PORTALS TEACHER Gender Identity Not on file Sexual Orientation Straight 04/27/2020 5: 24 PM CDT Last Filed Vital Signs Vital Sign Reading [...] 09/02/2024 2:23 PM CDT Plan of Treatment Not on file Procedures Procedure Name Priority Date/Time Associated Diagnosis Comments POCT HEMOGLOBIN A1C Routine 09/02/2024 2 :36 PM CDT Type 1 diabetes mellitus with hyperglycemia (HCC) DIABETES EYE EXAM Routine 03/05/2024 7:58 AM CDT COMPREHENSIVE METABOLIC PANEL Routine 11/03/2023 11:00 AM CAREER PORTALS TEACHER ALBUMIN CREATININE RATIO, URINE Routine 11/03/2023 11:00 AM CAREER PORTALS TEACHER LIPID PANEL Routine 11/03/2023 TSH Routine 07/11/2022 [...] DIABETES EYE EXAM (03/05/2024 7:58 AM CDT) us Historical Provider HEALTH MAINTENANCE Final Result * Albumin Creatinine Ratio, Urine (11/03/2023 11:00 AM CAREER PORTALS TEACHER) SCRIBED Creatinine, Urine 75.6 NA - NA EXTERNAL LAB SCRIBED Microalbumin <0.50 NA - NA EXTERNAL LAB SCRIBED Microalb/Creat Ratio NA NA - NA EXTERNAL LAB Urine 11/03/2023 11:0 0 AM CAREER PORTALS TEACHER Historical Provider LAB URINE ORDERABLES Edit ed Result - Final EXTERNAL LAB * (ABNORMAL) Comprehensive metabolic panel (11/03/2023 11:00 AM CAREER PORTALS TEACHER) SCRIBED Sodium 140 136 - 145 mmol/L [...] Units/L EXTERNAL LAB SCRIBED eGFR in NonAfrican Citizen Of [place] 60 >=60 - NA EXTERNAL LAB Blood 11/03/2023 11:0 0 AM CAREER PORTALS TEACHER Historical Provider LAB BLOOD ORDERABLES Edit ed Result - Final EXTERNAL LAB * (ABNORMAL) HM LIPID PANEL (11/03/2023) SCRIBED Cholesterol, Total 150 SCRIBED Triglycerides 157 SCRIBED HDL 40 SCRIBED VLDL Cholesterol Calculator 79 11/03/2023 Historical Provider HEALTH MAINTENANCE Final Result * TSH (07/11/2022 11:09 AM CDT) Thyroid Stimulating Hormone 2.41 0.30 - 4.20 mcIUnit/mL [facility] ODEN Blood 07/11/2022 11:0 9 AM CDT 07/11/2022 2:23 PM CDT [facility] MAIN LAB BLOOD ORDERABLES nal Result CAITLIN ODEN [id number] [address] Department [place] [address] from Last 3 Months or Most Recently Relevant to Health Maintenance Insurance [facility] Care Teams Felt Finisher Relationship Specialty Start Date End Date Salvador Love MD [address] [address] [facility] - General 02/14/17
--- OUTSIDE RECORDS SUMMARY | 2024-12-25 10:53 | XMS_ITS | Patient Health Summary ---
Author Organization [facility] Address [address] [place] [address] Care Team Providers Care Business Enterprise Officer Name Role Phone Salvador Love MD Primary Care Provider [phone] Note from [facility],non-owned Affiliates and Associated Physician Practices is amultiple site organization consisting of ambulatory clinics and hospital sitesin [place], [place], [place] and [place]. This disclosure is being madepursuant to the Care Everywhere program and may not contain all information available regarding this patient. Last updated 18.[facility] Allergies * Penicillins(Other) Medications * Be aware that medications may not be up to date on this document. Alwaysverify current medications with the patient. * oxyCODONE, immediate release, (Roxicodone) 5 MG tablet Take 1 (one) tablet by mouth every 6 hours as needed for Pain * cyclobenzaprine (Flexeril) 5 MG tablet Take 1 (one) tablet by mouth 3 times daily as needed * lisinopril (Prinivil; Zestril) 5 MG tablet Take 1 (one) tablet by mouth once daily * NovoLOG vial INJECT UP TO 150 UNITS SUBCUTANEOUSLY DAILY VIA INSULIN PUMP * Lantus SoloStar pen INJECT 40 UNITS SUBCUTANEOUSLY TWO TIMES A DAY IF PUMP FAILURE * Farxiga 10 MG tablet Take 1 (one) tablet by mouth once daily * atorvastatin (Lipitor) 40 MG tablet(Started 08/24/2024) Take 1 (one) tablet by mouth once daily * amitriptyline (Elavil) 50 MG tablet Take 1 (one) tablet by mouth * VITAMIN D, CHOLECALCIFEROL, PO Take by mouth. * fingolimod (Gilenya) 0.5 MG capsule(Started 08/01/2024) TAKE 1 CAPSULE BY MOUTH 1 TIME A DAY * Glucagon (Baqsimi One Pack) 3 MG/DOSE POWD(Started 08/20/2023) [place] 1 spray into the nose as needed * dorzolamide-timolol (Cosopt) 2-0.5 % ophthalmic solution(Started 10/06/2024) 1 (one) drop 2 times daily BOTH EYES * [employer] Ultra Test test strip USE FOR GLUCOSE MONITORING 5 TIMES DAILY * B-D ULTRAFINE III SHORT PEN 31G X 8 MM needle(Started 09/03/2024) USE TO INJECT TWO TIMES A DAY FOR LANTUS WHEN OFF PUMP * docusate sodium (Colace) 100 MG capsule(Started 12/21/2024) Take 1 (one) capsule by mouth once daily Reasons: Constipation, Take while using narcotic pain medications. Then take as needed for constipation. * oxyCODONE, immediate release, (Roxicodone) 5 MG tablet(Started 12/21/2024) Take 1 (one) tablet by mouth every 6 hours as needed for Pain * docusate sodium (Colace) 100 MG capsule(Started 12/21/2024) Take 1 (one) capsule by mouth 2 times daily as needed for Constipation Reasons: Constipation * ibuprofen (Motrin) 400 MG tablet(Started 12/21/2024) Take 1 (one) tablet by mouth every 6 hours as needed for Pain Reasons: Fever, Pain * acetaminophen (TYLENOL) 500 MG tablet(Started 12/21/2024) Take 2 (two) tablets by mouth every 8 hours as needed for Fever or Pain Maximum allowable Acetaminophen amount = 4 Grams (4000 mg) / 24 hours. * sennosides (Senna Lax) 8.6 MG tablet(Started 12/21/2024) Take 1 (one) tablet by mouth 2 times daily as needed for Constipation Take while using narcotic pain medications, then take as needed for constipation * aspirin EC (Ecotrin) 81 MG tablet(Started 12/22/2024) Take 1 (one) tablet by mouth 2 times daily * ferrous sulfate 325 (65 FE) MG tablet(Started 12/22/2024) Take 1 (one) tablet by mouth every 2 days 4 refills by 12/22/2025 * doxycycline monohydrate 100 MG capsule(Started 12/22/2024) Take 1 (one) capsule by mouth every 12 hours for 10 days Ended Medications* HYDROcodone-acetaminophen (Crescent) 5-325 MG tablet(Started 12/03/2024)(Discontinued) Take 1 (one) tablet by mouth every 6 hours as needed for Pain Active Problems Problem Noted Date Diagnosed Date Other closed displaced fract ure of proximal end of right humerus with routine healing, subsequent encounter 12/20/2024 Closed fracture of proximal end of right humerus 12/19/2024 Social History Tobacco Use Types Packs/Day Years Used Date Smoking Tobacco: Former Cigarettes S tarted: 2008 Smokeless Tobacco: Never Tobacco Cessation:Counseling Given: Not Answered Alcohol Use Standard Drinks/Week Comments Yes 0 (1 standard drink = 0.6 oz pur e alcohol) occ PHQ-2 Answer Date Recorded Patient Health Questionnaire-2 Score 0 12/09/2024 Sex and Gender Information Value Date Recorded Sex Assigned at Not on file Gender Identity Not on file Sexual Orientation Not on file Last Filed Vital Signs Vital Sign Reading Time Taken Comments Blood Pressure 126/74 12/22/2024 8:02 AM [facility] [employer] [facility] Pulse 76 12/22/2024 8:02 AM [facility] [employer] Temperature 36.7 C (98 F) 12/22/2024 8:02 AM [facility] [employer] Respiratory Rate 20 12/22/2024 8:02 AM [facility] [employer] Oxygen Saturation 93% 12/22/2024 8:02 AM [facility] [employer] Inhaled Oxygen Concentration - - Weight 106.6 kg (235 lb) 12/20/2024 10:58 AM [facility] [employer] Height 180.3 cm (5' 11 ) 12/20/2024 10:58 AM [employer] [employer] Body Mass Index 32.78 12/20/2024 10:58 AM [facility] [employer] Medical Devices Implanted Type Area [employer] Mechanical Device Identifier Shelf Expiration Date Model / Serial / Lot Plate Std [id number] 5 Hl Shft Lck Implanted:Qty: 1 on 12/20/2024 by Lani Strange MD at [facility] Right: Humer[employer] Captio [id number] / / Description:from vendor tray Cancellous Chips Implanted:Qty: 1 on 12/20/2024 by Lani Strange MD at [facility] Right: Humerus 03/04/2029 [id number] / [id number] / [id number] Screw 3.5mm 2.9mm 40mm T15 Ft Slf-Tap Implanted:Qty: 2 on 12/20/2024 by Lani Strange MD at [facility] Right: Humerus [employer] [id number] / / Description:from vendor tray Screw 3.5mm 2.9mm 30mm T15 Ft Slf-Tap Implanted:Qty: 3 on 12/20/2024 by Lani Strange MD at [facility] Right: Humer[employer] 212.111 / / Description:from vendor tray Screw 3.5mm 2.9mm 45mm T15 Ft Slf-Tap Implanted:Qty: 4 on 12/20/2024 by Lani Strange MD at [facility] Right: Humer[employer] 212.119 / / Description:from vendor tray Screw 3.5mm 2.9mm 55mm Ft Plv Slf-Tap Implanted:Qty: 1 on 12/20/2024 by Lani Strange MD at [facility] Right: [employer] 212.123 / / Description:from vendor tray Screw 3.5mm 2.9mm 38mm T15 Ft Slf-Tap Implanted:Qty: 1 on 12/20/2024 by Lani Strange MD at [facility] Right: [employer] 212.116 / / Description:from vendor tray Screw 3.5mm 6mm 32mm 2.5mm Ft Slf-Tap Implanted:Qty: 2 on 12/20/2024 by Lani Strange MD at [facility] Right: [employer] 204.832 / / Description:from vendor tray Screw 3.5mm 2.9mm 20mm T15 Ft Slf-Tap Implanted:Qty: 1 on 12/20/2024 by Lani Strange MD at [facility] Right: Humer[employer] 212.106 / / Explanted Type Area [employer] Mechanical Device Identifier Shelf Expiration Date Model / Serial / Lot Screw 3.5mm 6mm 40mm 2.5mm Ft Slf-Tap Explanted:Qty: 1 on 12/20/2024 by Lani Strange MD at [facility] Right: Humerus [employer] [facility] 204.840 / / Description:from vendor tray Procedures * IMAGING/RADIOLOGY/XRAY RESULTS ORDER(Performed 12/23/2024) * CARDIAC RHYTHM STRIP ORDER(Performed 12/23/2024) * PREPARE RBC LEUKOREDUCED UNIT(Performed 12/23/2024) * GLUCOSE - POINT OF CARE(Performed 12/22/2024) * GLUCOSE - POINT OF CARE(Performed 12/22/2024) * GLUCOSE - POINT OF CARE(Performed 12/22/2024) * VITAMIN B12(Performed 12/22/2024) * TSH REFLEX FREE T4(Performed 12/22/2024) * IRON + TRANSFERRIN PANEL(Performed 12/22/2024) * FOLATE(Performed 12/22/2024) * COMPREHENSIVE METABOLIC PANEL(Performed 12/22/2024) * HGB HCT PANEL(Performed 12/22/2024) * GLUCOSE - POINT OF CARE(Performed 12/22/2024) * GLUCOSE - POINT OF CARE(Performed 12/21/2024) * GLUCOSE - POINT OF CARE(Performed 12/21/2024) * GLUCOSE - POINT OF CARE(Performed 12/21/2024) * GLUCOSE - POINT OF CARE(Performed 12/21/2024) * GLUCOSE - POINT OF CARE(Performed 12/21/2024) * GLUCOSE - POINT OF CARE(Performed 12/21/2024) * HGB HCT PANEL(Performed 12/21/2024) Performed for Other closed displaced fracture of proximal end of right humerus with routine healing, subsequent encounter * BASIC METABOLIC PANEL (CALCIUM TOTAL)(Performed 12/21/2024) Performed for Other closed displaced fracture of proximal end of right humerus with routine healing, subsequent encounter * GLUCOSE - POINT OF CARE(Performed 12/21/2024) * GLUCOSE - POINT OF CARE(Performed 12/20/2024) * GLUCOSE - POINT OF CARE(Performed 12/20/2024) * XR SHOULDER RIGHT 2VW OR MORE(Performed 12/20/2024) Performed for Other closed displaced fracture of proximal end of right humerus with routine healing, subsequent encounter * GLUCOSE - POINT OF CARE(Performed 12/20/2024) * FL ALISSON SURGERY(Performed 12/20/2024) Performed for Pain * TRANSFUSE RED BLOOD CELL LEUKOREDUCED UNIT(S)(Performed 12/20/2024) * ENDOTRACHEAL TUBE NOTE(Performed 12/20/2024) * PERIPHERAL BLOCK(Performed 12/20/2024) * MT OPEN TX PROXIMAL HUMERAL FRACTURE(Performed 12/20/2024) Performed for Diagnosis unknown * BLOOD TYPE VERIFICATION(Performed 12/20/2024) * COMPREHENSIVE METABOLIC PANEL(Performed 12/20/2024) Performed for Closed fracture of proximal end of right humerus, unspecified fracture morphology, initial encounter * TYPE + SCREEN PANEL(Performed 12/20/2024) * GLUCOSE - POINT OF CARE(Performed 12/20/2024) * C-REACTIVE PROTEIN(Performed 12/10/2024) Performed for Closed fracture of proximal end of right humerus, unspecified fracture morphology, initial encounter * CBC W AUTO DIFFERENTIAL(Performed 12/10/2024) Performed for Closed fracture of proximal end of right humerus, unspecified fracture morphology, initial encounter * XR CHEST 2VW(Performed 12/10/2024) Performed for Closed fracture of proximal end of right humerus, unspecified fracture morphology, initial encounter * XR SHOULDER RIGHT 2VW OR MORE(Performed 12/10/2024) Performed for Right shoulder pain, unspecified chronicity * CT SHOULDER RIGHT WO CONTRAST(Performed 12/07/2024) Performed for Other closed displaced fracture of proximal end of right humerus, initial encounter * XR SHOULDER RIGHT 2VW OR MORE(Performed 12/03/2024) Performed for Right shoulder pain, unspecified chronicity * SARS-COV-2 (COVID-19) IN HOUSE(Performed 07/15/2020) Performed for Pre-procedure lab exam * SARS-COV-2 (COVID-19) IN HOUSE(Performed 04/08/2020) Performed for Preop examination Results * IMAGING RADIOLOGY XRAY RESULTS ORDER (12/23/2024 8:25 PM [facility] [employer]) Anatomical Region Laterality Modality Other Narrative 12/23/2024 8:25 PM [facility] [employer] Ordered by an unspecified provider. Scanned Document IMAGING * CARDIAC RHYTHM STRIP ORDER (12/23/2024 6:35 PM [facility] [employer]) Narrative 12/23/2024 6:35 PM [facility] [employer] Ordered by an unspecified provider. Scanned Document CARDIAC SERVICES ORD ERABLES * PREPARE (CROSSMATCH) RBC UNIT(S), 2 Units (12/23/2024 1:41 AM [facility] [employer]) Unit Description AS1 LR PRBC [facility] BLOOD [facility]ANK LAB Unit ABO O [facility] BLOOD [facility] LAB Unit Rh POS [facility] BLOOD [facility] Product Number R02 [facility] BLOOD [facility]ANK LAB Unit Donor # [id number] [facility] C BLOOD BANK LAB Unit Status transfused SM BL OOD BANK LAB Product Code [id number] [facility] BL OOD BANK LAB Blood Type Barcode 5100 [facility] BLOOD [facility] LAB Expiration Date S [facility] BLOOD BANK LAB Unit Description AS1 LR PRBC [facility] BLOOD [facility]ANK LAB Unit ABO O [facility] BLOOD [facility] Unit Rh POS [facility] BLOOD BANK LAB Product Number R02 [facility] BLOOD BANK LAB Unit Donor # [id number] [facility] BLOOD BANK LAB Unit Status released [facility] BLO OD BANK LAB Product Code [id number] [facility] BL OOD [facility]ANK LAB Blood Type Barcode 5100 [facility] BLOOD [facility] LAB Expiration Date S [facility] BLOOD BANK LAB Blood Bank BLOOD SPECIMEN / Unknown 12/20/2024 11:17 AM [facility] [employer] Lani Strange MD LAB - BLOOD BANK ORD ERABLES [facility] BLOOD [facility] LAB [address] [place] [address] * (ABNORMAL) GLUCOSE - POINT OF CARE (12/22/2024 12:55 PM [facility] [employer]) Only the most recent of15 resultswithin the time period is included. Pathologist [facility] [place] Glucose WB/POC 289(H) 70 - 99 mg/dL 12/24/2024 9:00 AM [employer] [facility] Specimen Type Cap Fingerstick 2024 9:00 AM [employer] [facility] Blood BLOOD SPECIMEN / Unknown 12/22/2024 12:55 PM [employer] 12/24/2024 9:00 AM [facility] [employer] Lani Strange MD LAB - POINT OF CARE ORDERABLES Performing Organization Address [facility] Co de Phone Number [facility] [address] [place] [address] [phone] * TSH REFLEX FREE T4 (12/22/2024 7:42 AM [employer]) [facility] TSH 1.896 0.350 - 4.940 uIU/mL 12/22/2024 10:14 AM [employer] [facility] Blood BLOOD SPECIMEN / Unknown Lab Venipuncture / Unknown 12/22/2024 7:42 AM [employer] 12/22/2024 8:25 AM [employer] Qi Fay DO LAB - CHEMISTRY ORDE DONALD Performing Organization Address [facility] Co de Phone Number [facility] [address] [place], [place] [phone] * (ABNORMAL) HGB HCT PANEL (12/22/2024 7:42 AM [employer]) Only the most recent of2 resultswithin the time period is included. [facility] Hemoglobin 10.4(L) 13.3 - 17.5 g/dL 12/22/2024 8:34 AM [employer] [facility] Hematocrit 33.1(L) 38.7 - 51.1 % 12/22/2024 8:34 AM [employer] [facility] Blood BLOOD SPECIMEN / Unknown Lab Venipuncture / Unknown 12/22/2024 7:42 AM [employer] 12/22/2024 8:25 AM [employer] Lani Strange MD LAB - HEMATOLOGY ORD ERABLES Performing Organization Address [facility] Co de Phone Number [facility] [address] [place] [phone] * (ABNORMAL) COMPREHENSIVE METABOLIC PANEL (12/22/2024 7:42 AM [employer]) Only the most recent of2 resultswithin the time period is included. [facility] Glucose 319(H) 70 - 99 mg/dL 12/22/2024 8:51 AM [facility] Sodium 130(L) 136 - 145 mmol/L 12/22/2024 8:51 AM [facility] Potassium 4.9 3.5 - 5.1 mmol/L 12/22/2024 8:51 AM [facility] Chloride 99 98 - 107 mmol/L 12/22/2024 8:51 AM [facility] CO2 21(L) 22 - 29 mmol/L 12/22/2024 8:51 AM [facility] Calcium 8.6 8.4 - 10.4 mg/dL 12/22/2024 8:51 AM [facility] Anion Gap 10 6 - 16 mmol/L 12/22/2024 8:51 AM [facility] BUN 22(H) 5.3 - 18.7 mg/dL 12/22/2024 8:51 AM [facility] Creatinine 0.85 0.72 - 1.25 mg/dL 12/22/2024 8:51 AM [facility] Alkaline Phosphatase 111 40 - 150 U/L 12/22/2024 8:51 AM [facility] ALT 91(H) 0 - 55 U/L 12/22/2024 8:51 AM [facility] AST 113(H) 5 - 34 U/L 12/22/2024 8:51 AM [facility] Protein Total 6.3(L) 6.4 - 8.3 gm/dL 12/22/2024 8:51 AM [facility] Albumin 3.2(L) 3.4 - 5.0 gm/dL 12/22/2024 8:51 AM [facility] Bilirubin Total 0.7 0.2 - 1.2 mg/dL 12/22/2024 8:51 AM [facility] eGFR by CKD-EPI >90 >=90 mL/min/1.7 3 m2 12/22/2024 8:51 AM [facility] Blood BLOOD SPECIMEN / Unknown Lab Venipuncture / Unknown 12/22/2024 7:42 AM [facility] [employer] 12/22/2024 8:25 AM [facility] Lani Strange MD LAB - CHEMISTRY GREY BENNETT [facility] Organization Address City/State/ZIP Co de Phone Number [facility] [address] [place] [phone] * FOLATE (12/22/2024 7:42 AM [employer]) Folate 14.6 7.0 - 31.4 ng/mL 12/22/2024 10:14 AM [facility] Blood BLOOD SPECIMEN / Unknown Lab Venipuncture / Unknown 12/22/2024 7:42 AM [employer] 12/22/2024 8:25 AM [employer] Qinahun Fay DO LAB - CHEMISTRY ORDApolinar BENNETT Performing Organization Address [facility] Co de Phone Number [facility] [address] [place] [phone] * (ABNORMAL) VITAMIN B12 (12/22/2024 7:42 AM [employer]) Vitamin B12 1,087(H) 213 - 816 pg/mL 12/22/2024 12:41 PM [facility] Blood BLOOD SPECIMEN / Unknown Lab Venipuncture / Unknown 12/22/2024 7:42 AM [employer] 12/22/2024 8:25 AM [employer] Qinahun Wymantaniya WALKER LAB - CHEMISTRY ORDApolinar BENNETT Performing Organization Address [facility] Co de Phone Number [facility] [address] [place] [phone] * (ABNORMAL) IRON + TRANSFERRIN PANEL (12/22/2024 7:42 AM [employer]) Iron 15(L) 50 - 175 ug/dL 12/22/2024 9:41 AM [facility] Transferrin 234 174 - 382 mg/dL 12/22/2024 9:41 AM [facility] TIBC Calculated 293 240 - 450 ug/dL 12/22/2024 9:41 AM [facility] Iron Saturation % 5(L) 20 - 50 % 12/22/2024 9:41 AM [facility] Blood BLOOD SPECIMEN / Unknown Lab Venipuncture / Unknown 12/22/2024 7:42 AM [employer] 12/22/2024 8:25 AM [employer] Qi Fay DO LAB - CHEMISTRY GREY BENNETT Performing Organization Address [facility]/ZIP Co de Phone Number [facility] [address] [place], [place] [phone] * (ABNORMAL) BASIC METABOLIC PANEL (CALCIUM TOTAL) (12/21/2024 2:50 AM [facility] [employer]) [facility] Glucose 288(H) 70 - 99 mg/dL 12/21/2024 4:16 AM [facility] Sodium 132(L) 136 - 145 mmol/L 12/21/2024 4:16 AM [facility] Potassium 4.7 3.5 - 5.1 mmol/L 12/21/2024 4:16 AM [facility] Chloride 104 98 - 107 mmol/L 12/21/2024 4:16 AM [facility] CO2 20(L) 22 - 29 mmol/L 12/21/2024 4:16 AM [facility] Calcium 8.1(L) 8.4 - 10.4 mg/dL 12/21/2024 4:16 AM [facility] Anion Gap 8 6 - 16 mmol/L 12/21/2024 4:16 AM [facility] BUN 27(H) 5.3 - 18.7 mg/dL 12/21/2024 4:16 AM [facility] Creatinine 0.94 0.72 - 1.25 mg/dL 12/21/2024 4:16 AM [facility] eGFR by CKD-EPI >90 >=90 mL/min/1.7 3 m2 12/21/2024 4:16 AM [facility] Blood BLOOD SPECIMEN / Unknown Lab Venipuncture / Unknown 12/21/2024 2:50 AM [employer] 12/21/2024 3:20 AM [employer] Lani Strange MD LAB - CHEMISTRY GREY BENNETT Performing Organization Address [facility]/ZIP Co de Phone Number [facility] [address] [place] [address] * XR SHOULDER RIGHT 2VW OR MORE (12/20/2024 9:06 PM [employer]) Only the most recent of3 resultswithin the time period is included. Anatomical Region Laterality Modality Upper Extremity Radiographic Erna ging 12/21/2024 8:35 AM [employer] Impressions 12/21/2024 8:37 AM [employer] IMPRESSION: As above. > Interpreting Provider: Salvador Cavazos MD on 12/21/2024 8:37 AM Narrative 12/21/2024 8:37 AM [employer] PROCEDURE: XR SHOULDER RIGHT 2VW OR MORE DATE/TIME OF EXAM: 12/20/2024 9:14 PM CLINICAL INFORMATION: None relevant/not provided if blank. Indication: S42.291D: Other displaced fracture of upper end of right humerus, subsequent encounter for fracture with routine healing Additional History: COMPARISON: None. FINDINGS: Proximal right humerus ORIF with plate and screws and residual deformity. Humeral head appears grossly seated on the provided single view. No definite fracture is seen elsewhere. Procedure Note Salvador Cavazos MD - 12/21/2024 PROCEDURE: XR SHOULDER RIGHT 2VW OR MORE DATE/TIME OF EXAM: 12/20/2024 9:14 PM CLINICAL INFORMATION: None relevant/not provided if blank. Indication: S42.291D: Other displaced fracture of upper end of right humerus, subsequent encounter for fracture with routine healing Additional History: COMPARISON: None. FINDINGS: Proximal right humerus ORIF with plate and screws and residualdeformity. Humeral head appears grossly seated on the provided single view. No definite fracture is seen elsewhere. IMPRESSION: As above. > Interpreting Provider: Salvador Cavazos MD on 12/21/2024 8:37 AM Lani Strange MD DIAGNOSTIC IMAGING O RDERABLES * FL Alisson Surgery (12/20/2024 8:13 PM [employer]) Narrative [facility] - 12/20/2024 8:14 PM [employer] For details of this study, please see the providers note. Lani Strange MD FLUOROSCOPY ORDERABL ES [facility] [address] [place] [address] * TRANSFUSE RED BLOOD CELL LEUKOREDUCED UNIT(S) (12/20/2024 6:29 PM [employer] [employer]) Tang Flood MD NURSING - BLOOD PROD TRANSFUSION * ETT LINE PERFORMABLE (12/20/2024 2:18 PM [employer]) Narrative [facility]ann St APRN-CRNA - 12/20/2024 2:18 PM [facility] [employer] [facility]ann [facility] APRN-CRNA 12/20/2024 2:18 PM Endotracheal Tube Placement: Patient Location: OR. Intubation Event Date/Time: 12/20/2024 2:02 PM Procedure: intubation ([id number]) Procedure Section: Sedation: under general anesthesia. Indications for Airway Management: anesthesia Induction: standard IV Patient Position: sniffing Mask Ventilation: easy with oral airway. Blade Type: Alcides Blade Size: 4 Laryngoscopy View: grade 2 (partial cords) Intubation Adjuncts: stylet Tube: endotracheal tube Placement: oral Tube type: cuff - inflated Tube Size (MM): 8 Depth of Insertion (CM): 24 Measured From: lips Cuff volume (mL): 6 Cuff Inflated With: air Number of Attempts: 1. Placement Verified By: direct visualization, bilateral breath sounds, chest auscultation and CO2 monitor Tube secured with: adhesive tape. Dentition unchanged? Yes Difficult Airway? No. Procedure Start Time: 12/20/2024 2:02 PM. Staff Section Anesthesia Provider: Louann St APRN-CRNA, Performed the procedure Provider #1: Claire Albarado, Performed the procedure. Tang Flood MD GENERAL ANESTHES IA ORDERABLES * Peripheral Nerve Block (12/20/2024 1:43 PM [employer]) Narrative Tang Flood MD - 12/20/2024 1:43 PM [employer] Tang Flood MD 12/20/2024 1:45 PM Peripheral Nerve Block Procedure: Peripheral Nerve Block Patient Location: Pre-op Preprocedure Section: Indications: at surgeon's request and postop pain management. Pre-anesthetic Checklist: Patient identified, IV Checked, Site examined and clear, Risks and benefits discussed, Surgical consent verified, Monitors and equipment, Time-out performed, Informed consent obtained, Pre-op evaluation done, Questions answered/anesthesia questions answered, Allergies reviewed and Removal hand/wrist jewelry Monitors: BP, Pulse Ox, EKG and ETCO2. Patient Condition: sedated, meaningful contact maintained throughout procedure Patient Position: supine Patient Sedated? Yes Sedation Type: mild Sedation Agents: fentaNYL (PF) (SUBLIMAZE) injection - Intravenous 100 mcg - 12/20/2024 12:30:00 PM midazolam (VERSED) injection - Intravenous 2 mg - 12/20/2024 12:30:00 PM Procedure Section Laterality: right Block Performed: interscalene Prep: Chloraprep Skin localized with: lidocaine (XYLOCAINE) 1 % injection - Infiltration 2 mL - 12/20/2024 12:30:00 PM Needle Type: Echogenic insulated Needle Gauge: 22 Needle Length: 80 mm Catheter? No Ultrasound Guided? Yes Technique: in plane Visualization: Preliminary scan performed, Important anatomical structures identified, Needle tip visualized throughout the procedure, Target identified, No intraneural or intravascular puncture occurred, Ultrasound image in chart, Local visualized surrounding nerve on ultrasound and Hydrodissection utilized Injection was made incrementally with constant monitoring and aspirations every 5 mL's Injection Assessment: Slow fractionated injection Block Agents or Additives used? Yes Block agents used: bupivacaine 0.5% - EPINEPHrine 1:200,000 (PF) injection - Infiltration 20 mL - 12/20/2024 12:36:00 PM bupivacaine liposome (EXPAREL) 1.3 % injection - Infiltration 10 mL - 12/20/2024 12:36:00 PM Procedure Tolerance: tolerated well Assessment: completed Staff Section Anesthesia Provider: Tang Flood MD, Performed the procedure Tang Flood MD GENERAL ANESTHES [place] ORDERABLES * BLOOD TYPE VERIFICATION (12/20/2024 11:21 AM [facility]) ABO Rh O POS 12/20/2024 11:56 AM [facility] Blood Bank BLOOD SPECIMEN / Unknown Venipuncture / Unknown 12/20/2024 11:21 AM [facility] 12/20/2024 11:23 AM [facility] [employer] [facility] Jerry Bingham MD LAB - BLOOD BANK ORD ERABLES [facility] [address] [phone] * TYPE + SCREEN PANEL (12/20/2024 11:17 AM [facility]) ABO Rh O POS 12/20/2024 11:56 AM [facility] Comment:No history; collect retype. Antibody Screen NEG 11:56 AM [facility] [employer] [facility] LAB Blood Bank BLOOD SPECIMEN / Unknown Venipuncture / Unknown 12/20/2024 11:17 AM [facility] [employer] [facility] 12/20/2024 11:17 AM [facility] [employer] Lani Strange MD LAB - BLOOD BANK ORD ERABLES [facility] [address] [place], [place] [address] [phone] * (ABNORMAL) C-REACTIVE PROTEIN (12/10/2024 10:23 AM [facility] [employer] [facility]) C-Reactive Protein 0.7(H) <=0.5 mg/dL 12/10/2024 11:25 AM [facility] Blood BLOOD SPECIMEN / Unknown Lab Venipuncture / Unknown 12/10/2024 10:23 AM [facility] [employer] [facility] 12/10/2024 10:42 AM [facility] [employer] Lani Strange MD LAB - CHEMISTRY ORDE [facility] [address] [address], [facility] [phone] * (ABNORMAL) CBC W/ DIFFERENTIAL (12/10/2024 10:23 AM [facility] [employer] [facility]) WBC 7.3 4.0 - 10.7 x10E9/L 12/10/2024 10:47 AM [facility] RBC Count 5.21 4.30 - 5.80 x10E12/L 12/10/2024 10:47 AM [facility] Hemoglobin 12.9(L) 13.3 - 17.5 g/dL 12/10/2024 10:47 AM [facility] Hematocrit 40.5 38.7 - 51.1 % 12/10/2024 10:47 AM [facility] MCV 77.7(L) 80.0 - 98.0 fL 12/10/2024 10:47 AM [facility] MCH 24.8(L) 26.7 - 33.6 pg 12/10/2024 10:47 AM [facility] MCHC 31.9 31.7 - 36.3 g/dL 12/10/2024 10:47 AM [facility] RDW-CV 14.6 11.3 - 14.8 % 12/10/2024 10:47 AM [facility] Platelet Count 397 150 - 420 x10E9/L 12/10/2024 10:47 AM [facility] MPV 9.3 7.8 - 11.4 fL 12/10/2024 10:47 AM [facility] Neutrophil % 71.8 41.0 - 74.0 % 12/10/2024 10:47 AM [facility] Lymphocyte % 8.1(L) 17.0 - 47.0 % 12/10/2024 10:47 AM [facility] Monocyte % 18.6(H) 3.0 - 11.0 % 12/10/2024 10:47 AM [facility] Eosinophil % 1.1 0.0 - 7.0 % 12/10/2024 10:47 AM [facility] Basophil % 0.1 0.0 - 1.6 % 12/10/2024 10:47 AM [facility] Immature Granulocytes % 0.3 0.0 - 1.0 % 12/10/2024 10:47 AM [facility] Neutrophil Absolute 5.24 1.60 - 7.50 x10E9/L 12/10/2024 10:47 AM [facility] Lymphocyte Absolute 0.59(L) 1.00 - 4.40 x10E9/L 12/10/2024 10:47 AM [facility] Monocyte Absolute 1.36(H) 0.15 - 1.00 x10E9/L 12/10/2024 10:47 AM [facility] Eosinophil Absolute 0.08 0.00 - 0.60 x10E9/L 12/10/2024 10:47 AM [facility] Basophil Absolute 0.01 0.00 - 0.13 x10E9/L 12/10/2024 10:47 AM [facility] Blood BLOOD SPECIMEN / Unknown Lab Venipuncture / Unknown 12/10/2024 10:23 AM [facility] [employer] [facility] 12/10/2024 10:42 AM [facility] [employer] [facility] Lani Strange MD LAB - HEMATOLOGY ORD ERABLES [facility] [address] [place] [address], [facility] [phone] * XR Chest 2Vw (12/10/2024 9:48 AM [facility] [employer] [facility]) Anatomical Region Laterality Modality Chest Computed Radiogr aphy 12/10/2024 9:41 AM [facility] [employer] [facility] Narrative 12/10/2024 9:46 AM [facility] [employer] [facility] PROCEDURE: XR CHEST 2VW, DATE/TIME OF EXAM: 12/10/2024 9:32 AM, LOCATION [facility] INDICATION: S42.201A: Closed fracture of proximal end of right humerus, unspecified fracture morphology, initial encounter ADDITIONAL CLINICAL INFORMATION: Ordering Provider Reason For Exam: cough pre-op COMPARISON: None. FINDINGS/IMPRESSION: Mild bibasilar atelectasis There is no focal consolidation, pleural effusion, or pneumothorax. The cardiomediastinal silhouette is normal. Partially visualized right shoulder fracture, please refer to concurrent shoulder radiograph at the same-day. The report was drafted by Leonora Cantu MD (vice president quality) 12/10/2024 9:41 AM. ILaz MD have personally reviewed and interpreted this examination/study. > Interpreting Provider: Laz Villarreal MD on 12/10/2024 9:46 AM Procedure Note Laz Villarreal MD - 12/10/2024 PROCEDURE: XR CHEST 2VW, DATE/TIME OF EXAM: 12/10/2024 9:32 AM, LOCATION [facility] INDICATION: S42.201A: Closed fracture of proximal end of right humerus, unspecified fracture morphology, initial encounter ADDITIONAL CLINICAL INFORMATION: Ordering Provider Reason For Exam: cough pre-op COMPARISON: None. FINDINGS/IMPRESSION: Mild bibasilar atelectasis There is no focal consolidation, pleural effusion, or pneumothorax. The cardiomediastinal silhouette is normal. Partially visualized right shoulder fracture, please refer to concurrent shoulder radiograph at the same-day. The report was drafted by Leonora Cantu MD (vice president quality) 12/10/2024 9:41 AM. Laz Oneal MD have personally reviewed and interpreted this examination/study. > Interpreting Provider: Laz Villarreal MD on 12/10/2024 9:46 AM Lani Strange MD DIAGNOSTIC IMAGING O RDERABLES * CT Shoulder Right Wo Contrast (12/07/2024 7:58 AM [facility] [employer]) Anatomical Region Laterality Modality Upper Extremity Computed Tomogra phy 12/07/2024 8:29 AM [facility] [employer] [facility] Impressions 12/07/2024 9:21 AM [facility] [employer] IMPRESSION: Comminuted moderately displaced, angulated fracture of the humeral neck. This study was dictated by radiology services manager Tyler Krishna MD and reviewed and edited by the attending. Alen Oneal MD have personally reviewed and interpreted this examination/study. > Interpreting Provider: Alen Martinez MD on 12/07/2024 9:21 AM Narrative 12/07/2024 9:21 AM [facility] [employer] [facility] PROCEDURE: CT SHOULDER RIGHT WO CONTRAST DATE/TIME OF EXAM: 12/07/2024 8:01 AM INDICATION: S42.291A: Other closed displaced fracture of proximal end of right humerus, initial encounter COMPARISON: Right shoulder x-ray 12/03/2024. TECHNIQUE: Axial CT images of the right shoulder. Coronal and sagittal reformatted images were submitted. FINDINGS: There is a comminuted moderately displaced, angulated fracture of the humeral neck. There is about 1.2 cm medial displacement of distal fracture segment and 38 degree anterior apical angularity. There is no dislocation. The glenohumeral and acromioclavicular joints are in anatomic alignment. There is soft tissue edema around the fracture site. There is a likely nonaggressive 0.7 cm lucent lesion with thin sclerotic margin in the lateral aspect of the fifth rib (series 4 image 79). Procedure Note Alen Martinez MD - 12/07/2024 PROCEDURE: CT SHOULDER RIGHT WO CONTRAST DATE/TIME OF EXAM: 12/07/2024 8:01 AM INDICATION: S42.291A: Other closed displaced fracture of proximal end of right humerus, initial encounter COMPARISON: Right shoulder x-ray 12/03/2024. TECHNIQUE: Axial CT images of the right shoulder. Coronal and sagittal reformatted images were submitted. FINDINGS: There is a comminuted moderately displaced, angulated fracture of the humeral neck. There is about 1.2 cm medial displacement of distalfracture segment and 38 degree anterior apical angularity. There is nodislocation. The glenohumeral and acromioclavicular joints are in anatomic alignment. There is soft tissue edema around the fracture site. There is a likely nonaggressive 0.7 cm lucent lesion with thin sclerotic margin in the lateral aspect of the fifth rib (series 4 image 79). IMPRESSION: Comminuted moderately displaced, angulated fracture of the humeral neck. This study was dictated by radiology services manager Tyler Krishna MD and reviewed and edited by the attending. I, Alen Martinez MD have personally reviewed and interpreted this examination/study. > Interpreting Provider: Alen Martinez MD on 12/07/2024 9:21 AM Lani Strange MD CT ORDERABLES * SARS-COV-2 (COVID-19) PRE-SURGICAL/PROCEDURE (STL) (07/15/2020 12:40 PM CDT) Only the most recent of2 resultswithin the time period is included. COVID-19 PCR Not detected Not detected, Invalid 07/16/2020 10:29 PM CDT [facility] Microbiology SPECIMEN FROM NASOPHARYNGEAL STRUCTURE / Unknown Collection / Unknown 07/15/2020 12:40 PM CDT 07/16/2020 8:39 AM CDT Narrative [facility] - 07/16/2020 10:29 PM CDT This Real Time RT-PCR assay was developed and its performance characteristics determined by [facility]. This test has been authorized by the Food and Drug administration (FDA)under an Emergency Use Authorization (EUA). This test has been validated in accordance with the FDA's guidance document Policy for Diagnostic Testing in Laboratories Certified to perform High Complexity Testing under CLIA prior to Emergency Use Authorization for Coronavirus Disease-2019 during the Public Health Emergency issued on January 15, 2020. FDA independent review of this validation is pending. This test is only authorized for the duration of time the declaration that circumstances exist justifying the authorization of emergency use of in vitro diagnostic tests for detection of SARS-CoV-2 virus and/or diagnosis of COVID-19 infection under section 564(b)(1) of the Act, 21 U.S.C 360bbb-3 (b)(1), unless the authorization is terminated or revoked sooner. Tani Cardozo MD LAB - MICROBIOLOGY O RDERABLES [facility] [address] [place] [address], [facility] [phone] Care Teams Business Enterprise Officer Relationship Specialty Start Date End Date Salvador Love MD [address] [place] [address] PCP - General Family Medicine 12/20/24
--- OUTSIDE RECORDS SUMMARY | 2024-12-25 10:53 | XMS_ITS | Clinical Summary ---
Author Organization [facility] Address [address] [place] [address] Care Team Providers Care Chief Executive Name Role Phone Salvador Love MD Primary Care Provider [phone] Source Comments [facility] Affiliates and Associated Physician Practices is amultiple site organization consisting of ambulatory clinics and hospital sitesin [place], [place], [place] and [place]. This disclosure is being madepursuant to the Care Everywhere program and may not contain all information available regarding this patient. Last updated 18.[facility] Allergies Active Allergy Reactions Criticality Noted Date Comments Penicillins Other 12/03/2024 States it was as child, unsure of reaction Medications * Be aware that medications may not be up to date on this document. Alwaysverify current medications with the patient. Medication Sig Dispensed Refills Start Date End Date Status oxyCODONE, immediate release, (Roxicodone) 5 MG tablet Take 1 (one) tablet by mouth every 6 hours as needed for Pain Active cyclobenzaprine (Flexeril) 5 MG tablet Take 1 (one) tablet by mouth 3 times daily as needed Active lisinopril (Prinivil; Zestril) 5 MG tablet Take 1 (one) tablet by mouth once daily Active NovoLOG vial INJECT UP TO 150 UNITS SUBCUTANEOUSLY DAILY VIA INSULIN PUMP Active Lantus SoloStar pen INJECT 40 UNITS SUBCUTANEOUSLY TWO TIMES A DAY IF PUMP FAILURE Active Farxiga 10 MG tablet Take 1 (one) tablet by mouth once daily Active atorvastatin (Lipitor) 40 MG tablet Take 1 (one) tablet by mouth once daily 08/24/2024 Active amitriptyline (Elavil) 50 MG tablet Take 1 (one) tablet by mouth Active VITAMIN D, CHOLECALCIFEROL, PO Take by mouth. Active fingolimod (Gilenya) 0.5 MG capsule TAKE 1 CAPSULE BY MOUTH 1 TIME A DAY 08/01/2024 Active Glucagon (Baqsimi One Pack) 3 MG/DOSE POWD Skandia 1 spray into the nose as needed 08/20/2023 Active dorzolamide-zen lol (Cosopt) 2-0.5 % ophthalmic solution 1 (one) drop 2 times daily BOTH EYES 10/06/2024 Active OneTouch Ultra Test test strip USE FOR GLUCOSE MONITORING 5 TIMES DAILY Active B-D ULTRAFINE III SHORT PEN 31G X 8 MM needle USE TO INJECT TWO TIMES A DAY FOR LANTUS WHEN OFF PUMP 09/03/2024 Active docusate sodium (Colace) 100 MG capsuleIndicatio ns:Constipation, Take while using narcotic pain medications. Then take as needed for constipation. Take 1 (one) capsule by mouth once daily Reasons: Constipation, Take while using narcotic pain medications. Then take as needed for constipation. 12/21/2024 Active oxyCODONE, immediate release, (Roxicodone) 5 MG tabletIndication s:Closed fracture of proximal end of right humerus, unspecified fracture morphology, initial encounter Take 1 (one) tablet by mouth every 6 hours as needed for Pain 28 tablet 12/21/2024 Active docusate sodium (Colace) 100 MG capsuleIndicatio ns:Constipation Take 1 (one) capsule by mouth 2 times daily as needed for Constipation Reasons: Constipation 12/21/2024 Active ibuprofen (Motrin) 400 MG tabletIndication s:Fever,Pain Take 1 (one) tablet by mouth every 6 hours as needed for Pain Reasons: Fever, Pain 12/21/2024 Active acetaminophen (TYLENOL) 500 MG tablet Take 2 (two) tablets by mouth every 8 hours as needed for Fever or Pain Maximum allowable Acetaminophen amount = 4 Grams (4000 mg) / 24 hours. 12/21/2024 Active sennosides (Senna Lax) 8.6 MG tablet Take 1 (one) tablet by mouth 2 times daily as needed for Constipation Take while using narcotic pain medications, then take as needed for constipation 12/21/2024 Active aspirin EC (Ecotrin) 81 MG tablet Take 1 (one) tablet by mouth 2 times daily 70 tablet 12/22/2024 Active ferrous sulfate 325 (65 FE) MG tablet Take 1 (one) tablet by mouth every 2 days 100 tablet 4 12/22/2024 Active doxycycline monohydrate 100 MG capsule Take 1 (one) capsule by mouth every 12 hours for 10 days 20 capsule 12/22/2024 Active HYDROcodone-acet aminophen ([place]) 5-325 MG tabletIndication s:Other closed displaced fracture of proximal end of right humerus, initial encounter Take 1 (one) tablet by mouth every 6 hours as needed for Pain 12 tablet 12/03/2024 5 Discontinu ed(Clinica l Decision) Active Problems Problem Noted Date Diagnosed Date Other closed displaced fract ure of proximal end of right humerus with routine healing, subsequent encounter 12/20/2024 Closed fracture of proximal end of right humerus 12/19/2024 Encounters Date Type Department Care Team Description 12/22/2024 Orders Only [facility] - Orthopedics [address] [facility] [place] [address] Lani Strange MD 12/20/2024 1:55 PM HERB DOCTOR Anesthesia Event [facility] [address] [place] [address] Tang Flood MD Bauer, Jennifer M, LANGUAGE TRANSLATOR-RESTAURANT HOST/HOSTESS 12/20/2024 12:44 PM HERB DOCTOR - 12/20/2024 3:34 PM HERB DOCTOR Surgery [facility] [address] [place] [address] Lani Strange MD OPEN REDUCTION INTERNAL FIXATION (ORIF) SHOULDER/PROXIMAL HUMERUS - RIGHT 12/20/2024 10:29 AM HERB DOCTOR - 12/22/2024 2:50 PM [facility] Hospital Encounter [facility] 2 ORTHO/NEW VIS [address] [place] [address] Lani Strange MD Orthopedics Discharge Disposition: Home or Self Care 12/20/2024 Travel 12/10/2024 9:45 AM HERB DOCTOR - 12/10/2024 11:59 PM HERB DOCTOR Hospital Encounter [facility] OP DRAW STATION [address] [place] [phone] Lani Strange MD Discharge Disposition: Home or Self Care 12/10/2024 9:32 AM HERB DOCTOR - 12/10/2024 9:44 AM HERB DOCTOR Hospital Encounter [facility] RAD CSM [address] [facility] [place] [address] Lani Strange MD Discharge Disposition: Home or Self Care 12/10/2024 9:15 AM HERB DOCTOR [facility] [address] [place] [address], [place] [address] Lani Strange MD Closed fracture of proximal end of right humerus, unspecified fracture morphology, initial encounter (Primary Dx) 12/10/2024 8:47 AM HERB DOCTOR - 12/10/2024 9:31 AM HERB DOCTOR Hospital Encounter [facility] CSM [address] [facility] [place] [address] Lani Strange MD Discharge Disposition: Home or Self Care 12/10/2024 Travel 12/07/2024 7:45 AM HERB DOCTOR - 12/07/2024 11:59 PM HERB DOCTOR Hospital Encounter [facility] CAT SCAN [address] [place] [address] Lani Strange MD Discharge Disposition: Home or Self Care 12/07/2024 Travel 12/03/2024 9:15 AM HERB DOCTOR [facility] [address] [place] [phone] Lani Strange MD Other closed displaced fracture of proximal end of right humerus, initial encounter (Primary Dx) 12/03/2024 8:53 AM HERB DOCTOR - 12/03/2024 11:59 PM HERB DOCTOR Hospital Encounter [facility] CSM [address] [facility] [place] [address] Lani Strange MD Discharge Disposition: Home or Self Care 12/03/2024 Travel 11/29/2024 Orders Only [facility] - Orthopedics [address] [place] [address], [place] [address] Lani Strange MD Right shoulder pain, unspecified chronicity from Last 3 Months Social History Tobacco Use Types Packs/Day Years Used Date Smoking Tobacco: Former Cigarettes S tarted: 2009 Smokeless Tobacco: Never Tobacco Cessation:Counseling Given: Not [...] Comments Blood Pressure 126/74 12/22/2024 8:02 AM HERB DOCTOR Pulse 76 12/22/2024 8:02 AM HERB DOCTOR Temperature 36.7 C (98 F) 12/22/2024 8:02 AM HERB DOCTOR Respiratory Rate 20 12/22/2024 8:02 AM HERB DOCTOR Oxygen Saturation 93% 12/22/2024 8:02 AM HERB DOCTOR Inhaled Oxygen Concentration - - Weight 106.6 kg (235 lb) 12/20/2024 10:58 AM HERB DOCTOR Height 180.3 cm (5' 11 ) 12/20/2024 10:58 AM HERB DOCTOR Body Mass Index 32.78 12/20/2024 10:58 AM HERB DOCTOR Plan of Treatment Upcoming Encounters Date Type Department Care Team (Late st Contact Info) Description 01/07/2025 1:00 PM HERB DOCTOR Office Visit [facility] - Orthopedics [address] [facility] [place] [phone] Lani Strange MD [facility] [phone] Health Maintenance Due Date Last Done Comments HIV SCREENING 02/01/1996 HEPATITIS C SCREENING 01/27/1999 DTAP/TDAP/TD VACCINES (1 - Tdap) 02/01/2000 HEPATITIS B VACCINE (1 of 3 - 19+ 3-dose series) 02/01/2000 PNEUMOCOCCAL VACCINE (1 of 2 - PCV) 02/01/2000 COVID-19 VACCINE (3 - 2023- season) 2024 02/03/2021, 01/06/2021 ZOSTER VACCINE (1 of 2) 2031 INFLUENZA VACCINE Completed 09/26/2024, , 08/16/2023, Additional history exists DEPRESSION SCREENING Completed 12/03/2024 HIB VACCINE Aged Out No longer eligi ble based on patient's age to complete this topic HPV VACCINE Aged Out No longer eligi ble based on patient's age to complete this topic MENINGOCOCCAL (Group B) VACCINE Aged Out No longer eligible based on patient's age to complete this topic MENINGOCOCCAL VACCINE Aged Out No lucretia juan carlos eligible based on patient's age to complete this topic Goals Goal Patient Goal Type Associated Problems Recent Progress Patient-Stated? Author Patient will verbalize understanding of symptoms General No Zoey Aguirre RN Medical Devices Implanted Type Area Clinical Appeals Rn Device Identifier Shelf Expiration Date Model / Serial / Lot Plate Std [id number] 5 Hl Shft Lck Implanted:Qty: 1 on 12/20/2024 by Lani Strange MD at [facility] Right: Humerus [employer] [facility] [place] [id number] / / Description:from vendor tray Cancellous Chips Implanted:Qty: 1 on 12/20/2024 by Lani Strange MD at [facility] Right: Humerus 03/04/2029 [id number] / [id number] / [id number] Screw 3.5mm 2.9mm 40mm T15 Ft Slf-Tap Implanted:Qty: 2 on 12/20/2024 by Lani Strange MD at [facility] Right: Humerus [employer] [facility] [place] 212.117 / / Description:from vendor tray Screw 3.5mm 2.9mm 30mm T15 Ft Slf-Tap Implanted:Qty: 3 on 12/20/2024 by Lani Strange MD at [facility] Right: Humerus [employer] 212.111 / / Description:from vendor tray Screw 3.5mm 2.9mm 45mm T15 Ft Slf-Tap Implanted:Qty: 4 on 12/20/2024 by Lani Strange MD at [facility] Right: Humerus [employer] [facility] [place] 212.119 / / Description:from vendor tray Screw 3.5mm 2.9mm 55mm Ft Plv Slf-Tap Implanted:Qty: 1 on 12/20/2024 by Lani Strange MD at [facility] Right: Humer[employer] 212.123 / / Description:from vendor tray Screw 3.5mm 2.9mm 38mm T15 Ft Slf-Tap Implanted:Qty: 1 on 12/20/2024 by Lani Strange MD at [facility] Right: Humer[employer] 212.116 / / Description:from vendor tray Screw 3.5mm 6mm 32mm 2.5mm Ft Slf-Tap Implanted:Qty: 2 on 12/20/2024 by Lani Strange MD at [facility] Right: Humer[employer] 204.832 / / Description:from vendor tray Screw 3.5mm 2.9mm 20mm T15 Ft Slf-Tap Implanted:Qty: 1 on 12/20/2024 by Lani Strange MD at [facility] Right: Humerus [employer] 212.106 / / Explanted Type Area Clinical Appeals Rn Device Identifier Shelf Expiration Date Model / Serial / Lot Screw 3.5mm 6mm 40mm 2.5mm Ft Slf-Tap Explanted:Qty: 1 on 12/20/2024 by Lani Strange MD at [facility] Right: Humerus [employer] [facility] [place] 204.840 / / Description:from vendor tray Procedures Procedure Name Priority Date/Time Associated Diagnosis Comments IMAGING/RADIOLOGY/XR AY RESULTS ORDER 12/23/2024 8:25 PM HERB DOCTOR CARDIAC RHYTHM STRIP ORDER 12/23/2024 6:35 PM HERB DOCTOR PREPARE RBC LEUKOREDUCED UNIT Routine 12/23/2024 1:41 AM HERB DOCTOR GLUCOSE - POINT OF CARE Routine 12/22/2024 12:55 PM HERB DOCTOR GLUCOSE - POINT OF CARE Routine 12/22/2024 11:54 AM HERB DOCTOR GLUCOSE - POINT OF CARE Routine 12/22/2024 7:50 AM HERB DOCTOR VITAMIN B12 Add on 12/22/2024 7:42 AM HERB DOCTOR TSH REFLEX FREE T4 Add on 12/22/2024 7: 42 AM HERB DOCTOR IRON + TRANSFERRIN PANEL Add on 12/22/2024 7:42 AM HERB DOCTOR FOLATE Add on 12/22/2024 7:42 AM HERB DOCTOR COMPREHENSIVE METABOLIC PANEL PENDING DISCHARGE 12/22/2024 7:42 AM HERB DOCTOR HGB HCT PANEL PENDING DISCHARGE 12/22/2024 7:42 AM HERB DOCTOR GLUCOSE - POINT OF CARE Routine 12/22/2024 4:06 AM HERB DOCTOR GLUCOSE - POINT OF CARE Routine 12/21/2024 10:57 PM HERB DOCTOR GLUCOSE - POINT OF CARE Routine 12/21/2024 8:17 PM HERB DOCTOR GLUCOSE - POINT OF CARE Routine 12/21/2024 6:53 PM HERB DOCTOR GLUCOSE - POINT OF CARE Routine 12/21/2024 11:21 AM HERB DOCTOR GLUCOSE - POINT OF CARE Routine 12/21/2024 9:17 AM HERB DOCTOR GLUCOSE - POINT OF CARE Routine 12/21/2024 4:43 AM HERB DOCTOR HGB HCT PANEL AM Draw 12/21/2024 2:50 AM HERB DOCTOR Other closed displaced fracture of proximal end of right humerus with routine healing, subsequent encounter BASIC METABOLIC PANEL (CALCIUM TOTAL) AM Draw 12/21/2024 2:50 AM HERB DOCTOR Other closed displaced fracture of proximal end of right humerus with routine healing, subsequent encounter GLUCOSE - POINT OF CARE Routine 12/21/2024 12:44 AM HERB DOCTOR GLUCOSE - POINT OF CARE Routine 12/20/2024 10:12 PM HERB DOCTOR GLUCOSE - POINT OF CARE Routine 12/20/2024 9:28 PM HERB DOCTOR XR SHOULDER RIGHT 2VW OR MORE STAT 12/20/2024 9:06 PM HERB DOCTOR Other closed displaced fracture of proximal end of right humerus with routine healing, subsequent encounter GLUCOSE - POINT OF CARE Routine 12/20/2024 8:28 PM HERB DOCTOR FL ALISSON SURGERY Routine 12/20/2024 8:13 PM HERB DOCTOR Pain TRANSFUSE RED BLOOD CELL LEUKOREDUCED UNIT(S) Routine 12/20/2024 6:28 PM HERB DOCTOR ENDOTRACHEAL TUBE NOTE Routine 12/20/2024 2:18 PM HERB DOCTOR PERIPHERAL BLOCK Routine 12/20/2024 1:4 3 PM HERB DOCTOR IL OPEN TX PROXIMAL HUMERAL FRACTURE 12/20/2024 1:28 PM HERB DOCTOR Diagnosis unknown Special Needs NEEDS BEACH CHAIR, SPIDER, SYNTHES REP(YOSSI [phone]) NOTIFIED PER OFFICE(LUIS) 12/10 TM--DATE AND TIME CHANGE--REP. NOTIFIED PER OFFICE (LUIS)--12/10 KW -REP EMAILED 12/16 BLOOD TYPE VERIFICATION Routine 12/20/2024 11:21 AM HERB DOCTOR COMPREHENSIVE METABOLIC PANEL AM Draw 12/20/2024 11:20 AM HERB DOCTOR Closed fracture of proximal end of right humerus, unspecified fracture morphology, initial encounter TYPE + SCREEN PANEL STAT 12/20/2024 1 1:17 AM HERB DOCTOR GLUCOSE - POINT OF CARE Routine 12/20/2024 11:13 AM HERB DOCTOR C-REACTIVE PROTEIN Routine 12/10/2024 10 :23 AM HERB DOCTOR Closed fracture of proximal end of right humerus, unspecified fracture morphology, initial encounter CBC W AUTO DIFFERENTIAL Routine 12/10/2024 10:23 AM HERB DOCTOR Closed fracture of proximal end of right humerus, unspecified fracture morphology, initial encounter XR CHEST 2VW Routine 12/10/2024 9:48 AM HERB DOCTOR Closed fracture of proximal end of right humerus, unspecified fracture morphology, initial encounter XR SHOULDER RIGHT 2VW OR MORE Routine 12/10/2024 8:58 AM HERB DOCTOR Right shoulder pain, unspecified chronicity CT SHOULDER RIGHT WO CONTRAST Routine 12/07/2024 7:58 AM HERB DOCTOR Other closed displaced fracture of proximal end of right humerus, initial encounter XR SHOULDER RIGHT 2VW OR MORE Routine 12/03/2024 9:01 AM HERB DOCTOR Right shoulder pain, unspecified chronicity from Last 3 Months Results * IMAGING RADIOLOGY XRAY RESULTS ORDER (12/23/2024 8:25 PM HERB DOCTOR) Anatomical Region Laterality Modality Other Narrative 12/23/2024 8:25 PM HERB DOCTOR Ordered by an unspecified provider. Scanned Document IMAGING * CARDIAC RHYTHM STRIP ORDER (12/23/2024 6:35 PM HERB DOCTOR) Narrative 12/23/2024 6:35 PM HERB DOCTOR Ordered by an unspecified provider. Scanned Document CARDIAC SERVICES ORD ERABLES * PREPARE (CROSSMATCH) RBC UNIT(S), 2 Units (12/23/2024 1:41 AM HERB DOCTOR) Unit Description AS1 LR PRBC [facility] Unit ABO O [facility] Unit Rh POS [facility] Product Number R02 [facility] Unit Donor # [id number] [facility] Unit Status transfused [facility] Product Code [id number] [facility] Blood Type Barcode 5100 [facility] Expiration Date S [facility] Unit Description AS1 LR PRBC [facility] Unit ABO O [facility] Unit Rh POS [facility] Product [facility] R02 [facility] Unit Donor # [id number] [facility] Unit Status released [facility] Product Code [id number] [facility] Blood Type Barcode 5100 [facility] Expiration Date S [facility] Blood Bank BLOOD SPECIMEN / Unknown 12/20/2024 11:17 AM HERB DOCTOR Lani Strange MD LAB - BLOOD BANK ORD ERABLES Performing Organization Address [facility] Co de Phone Number [facility] [address] [place] [address] * (ABNORMAL) GLUCOSE - POINT OF CARE (12/22/2024 12:55 PM HERB DOCTOR) Only the most recent of15 resultswithin the time period is included. Glucose WB/POC 289(H) 70 - 99 mg/dL 12/24/2024 9:00 AM HERB DOCTOR [facility] Specimen Type Cap Fingerstick 2024 9:00 AM HERB DOCTOR [facility] Blood BLOOD SPECIMEN / Unknown 12/22/2024 12:55 PM HERB DOCTOR 12/24/2024 9:00 AM HERB DOCTOR Lani Strange MD LAB - POINT OF CARE ORDERABLES Performing Organization Address City/[facility]/ZIP Co de Phone Number [facility] [address] [place] [address] * TSH REFLEX FREE T4 (12/22/2024 7:42 AM HERB DOCTOR) TSH 1.896 0.350 - 4.940 uIU/mL 12/22/2024 10:14 AM HERB DOCTOR [facility] Blood BLOOD SPECIMEN / Unknown Lab Venipuncture / Unknown 12/22/2024 7:42 AM HERB DOCTOR 12/22/2024 8:25 AM HERB DOCTOR Qi Fay DO LAB - CHEMISTRY ORDE DONALD Performing Organization Address [facility] Co de Phone Number [facility] [address] [place], [place] [id number] * (ABNORMAL) HGB HCT PANEL (12/22/2024 7:42 AM HERB DOCTOR) Only the most recent of2 resultswithin the time period is included. Pathologist [facility] Hemoglobin 10.4(L) 13.3 - 17.5 g/dL 12/22/2024 8:34 AM [facility] Hematocrit 33.1(L) 38.7 - 51.1 % 12/22/2024 8:34 AM [facility] Blood BLOOD SPECIMEN / Unknown Lab Venipuncture / Unknown 12/22/2024 7:42 AM HERB DOCTOR 12/22/2024 8:25 AM HERB DOCTOR Lani Strange MD LAB - HEMATOLOGY ORD RADHA Performing Organization Address [facility] Co de Phone Number [facility] [address] [place] [address] * (ABNORMAL) COMPREHENSIVE METABOLIC PANEL (12/22/2024 7:42 AM HERB DOCTOR) Only the most recent of2 resultswithin the time period is included. Glucose 319(H) 70 - 99 mg/dL 12/22/2024 8:51 AM [facility] Sodium 130(L) 136 - 145 mmol/L 12/22/2024 8:51 AM [facility] Potassium 4.9 3.5 - 5.1 mmol/L 12/22/2024 8:51 AM [facility] Chloride 99 98 - 107 mmol/L 12/22/2024 8:51 AM [facility] CO2 21(L) 22 - 29 mmol/L 12/22/2024 8:51 AM [facility] Calcium 8.6 8.4 - 10.4 mg/dL 12/22/2024 8:51 AM [facility] Anion Gap 10 6 - 16 mmol/L 12/22/2024 8:51 AM [facility] BUN 22(H) 5.3 - 18.7 mg/dL 12/22/2024 8:51 AM [facility] Creatinine 0.85 0.72 - 1.25 mg/dL 12/22/2024 8:51 AM [facility] Alkaline Phosphatase 111 40 - 150 U/L 12/22/2024 8:51 AM [facility] ALT 91(H) 0 - 55 U/L 12/22/2024 8:51 AM [facility] AST 113(H) 5 - 34 U/L 12/22/2024 8:51 AM [facility] Protein Total 6.3(L) 6.4 - 8.3 gm/dL 12/22/2024 8:51 AM [facility] Albumin 3.2(L) 3.4 - 5.0 gm/dL 12/22/2024 8:51 AM [facility] Bilirubin Total 0.7 0.2 - 1.2 mg/dL 12/22/2024 8:51 AM [facility] eGFR by CKD-EPI >90 >=90 mL/min/1.7 3 m2 12/22/2024 8:51 AM [facility] Blood BLOOD SPECIMEN / Unknown Lab Venipuncture / Unknown 12/22/2024 7:42 AM HERB DOCTOR 12/22/2024 8:25 AM HERB DOCTOR Lani Strange MD LAB - CHEMISTRY GREY BENNETT Performing Organization Address City/[facility]/ZIP Co de Phone Number [facility] [address] [place] [phone] * FOLATE (12/22/2024 7:42 AM HERB DOCTOR) Folate 14.6 7.0 - 31.4 ng/mL 12/22/2024 10:14 AM [facility] Blood BLOOD SPECIMEN / Unknown Lab Venipuncture / Unknown 12/22/2024 7:42 AM HERB DOCTOR 12/22/2024 8:25 AM HERB DOCTOR Qi Fay DO LAB - CHEMISTRY ORDApolinar BENNETT [facility] [address] [place] [address] * (ABNORMAL) VITAMIN B12 (12/22/2024 7:42 AM HERB DOCTOR) Vitamin B12 1,087(H) 213 - 816 pg/mL 12/22/2024 12:41 PM [facility] Blood BLOOD SPECIMEN / Unknown Lab Venipuncture / Unknown 12/22/2024 7:42 AM HERB DOCTOR 12/22/2024 8:25 AM HERB DOCTOR Qinahun Wymantaniya LAB - CHEMISTRY ORDE Lyks Performing Organization Address [facility] Co de Phone Number [facility] [address] [place] [phone] * (ABNORMAL) IRON + TRANSFERRIN PANEL (12/22/2024 7:42 AM HERB DOCTOR) Iron 15(L) 50 - 175 ug/dL 12/22/2024 9:41 AM [facility] Transferrin 234 174 - 382 mg/dL 12/22/2024 9:41 AM [facility] TIBC Calculated 293 240 - 450 ug/dL 12/22/2024 9:41 AM [facility] Iron Saturation % 5(L) 20 - 50 % 12/22/2024 9:41 AM [facility] Blood BLOOD SPECIMEN / Unknown Lab Venipuncture / Unknown 12/22/2024 7:42 AM HERB DOCTOR 12/22/2024 8:25 AM HERB DOCTOR Qinahun Fay LAB - CHEMISTRY ORDE DONALD Performing Organization Address [facility]/ZIP Co de Phone Number [facility] [address] [place] [address] * (ABNORMAL) BASIC METABOLIC PANEL (CALCIUM TOTAL) (12/21/2024 2:50 AM HERB DOCTOR) Glucose 288(H) 70 - 99 mg/dL 12/21/2024 4:16 AM [facility] Sodium 132(L) 136 - 145 mmol/L 12/21/2024 4:16 AM [facility] Potassium 4.7 3.5 - 5.1 mmol/L 12/21/2024 4:16 AM [facility] Chloride 104 98 - 107 mmol/L 12/21/2024 4:16 AM [facility] CO2 20(L) 22 - 29 mmol/L 12/21/2024 4:16 AM [facility] Calcium 8.1(L) 8.4 - 10.4 mg/dL 12/21/2024 4:16 AM [facility] Anion Gap 8 6 - 16 mmol/L 12/21/2024 4:16 AM [facility] BUN 27(H) 5.3 - 18.7 mg/dL 12/21/2024 4:16 AM [facility] Creatinine 0.94 0.72 - 1.25 mg/dL 12/21/2024 4:16 AM [facility] eGFR by CKD-EPI >90 >=90 mL/min/1.7 3 m2 12/21/2024 4:16 AM [facility] [facility] Blood BLOOD SPECIMEN / Unknown Lab Venipuncture / Unknown 12/21/2024 2:50 AM HERB DOCTOR 12/21/2024 3:20 AM HERB DOCTOR Lani Strange MD LAB - CHEMISTRY [facility] Central Organization Address City/State/[facility] Co de Phone Number [facility] [address] [place], [place] [phone] * XR SHOULDER RIGHT 2VW OR MORE (12/20/2024 9:06 PM HERB DOCTOR) Only the most recent of3 resultswithin the time period is included. Anatomical Region Laterality Modality Upper Extremity Radiographic Erna ging 12/21/2024 8:35 AM HERB DOCTOR Impressions 12/21/2024 8:37 AM HERB DOCTOR IMPRESSION: As above. > Interpreting Provider: Salvador Cavazos MD on 12/21/2024 8:37 AM Narrative 12/21/2024 8:37 AM HERB DOCTOR PROCEDURE: XR SHOULDER RIGHT 2VW OR MORE [...] * [place] [facility] (12/20/2024 8:13 PM HERB DOCTOR) Narrative [facility] - 12/20/2024 8:14 PM HERB DOCTOR For details of this study, please see the providers note. Lani Strange MD FLUOROSCOPY ORDERABL ES Performing Organization Address City/State/[facility] Co de Phone Number [facility] [address] [place] [address] * TRANSFUSE RED BLOOD CELL LEUKOREDUCED UNIT(S) (12/20/2024 6:29 PM HERB DOCTOR) Tang Flood MD NURSING - BLOOD PROD TRANSFUSION * ETT LINE PERFORMABLE (12/20/2024 2:18 PM HERB DOCTOR) Narrative Louann St APRN-RESTAURANT HOST/HOSTESS - 12/20/2024 2:[address] APRN-KAMALJIT 12/20/2024 2:18 PM Endotracheal Tube Placement: Patient Location: OR. Intubation Event Date/Time: 12/20/2024 2:02 PM Procedure: intubation ([id number]) Procedure Section: Sedation: under general anesthesia. Indications [...] PM. Staff Section Anesthesia Provider: Louann St APRN-RESTAURANT HOST/HOSTESS, Performed the procedure Provider #1: Claire Albarado, Performed the procedure. Tang Flood MD GENERAL ANESTHES [place] ORDERABLES * Peripheral Nerve Block (12/20/2024 1:43 PM HERB DOCTOR) Narrative Tang Flood MD - 12/20/2024 1:43 PM HERB DOCTOR Tang Flood MD 12/20/2024 1:45 PM Peripheral [...] * BLOOD TYPE VERIFICATION (12/20/2024 11:21 AM HERB DOCTOR) ABO Rh O POS 12/20/2024 11:56 AM HERB DOCTOR [facility] Blood Bank BLOOD SPECIMEN / Unknown Venipuncture / Unknown 12/20/2024 11:21 AM HERB DOCTOR 12/20/2024 11:23 AM HERB DOCTOR Jerry Bingham MD LAB - BLOOD BANK ORD ERABLES [facility] [address] [phone] * TYPE + SCREEN PANEL (12/20/2024 11:17 AM HERB DOCTOR) ABO Rh O POS 12/20/2024 11:56 AM HERB DOCTOR [facility] Comment:No history; collect retype. Antibody Screen NEG 11:56 AM HERB DOCTOR [facility] Blood Bank BLOOD SPECIMEN / Unknown Venipuncture / Unknown 12/20/2024 11:17 AM HERB DOCTOR 12/20/2024 11:17 AM HERB DOCTOR Lani Strange MD LAB - BLOOD BANK ORD ERABLES [facility] [address] [place], [place] [address] [phone] * (ABNORMAL) C-REACTIVE PROTEIN (12/10/2024 10:23 AM HERB DOCTOR) [facility] C-Reactive Protein 0.7(H) <=0.5 mg/dL 12/10/2024 11:25 AM [facility] Blood BLOOD SPECIMEN / Unknown Lab Venipuncture / Unknown 12/10/2024 10:23 AM HERB DOCTOR 12/10/2024 10:42 AM [facility] Lani Strange MD LAB - CHEMISTRY [facility] Central Organization Address City/State/[facility] Co de Phone Number [place] [phone] [place] [address] * (ABNORMAL) CBC W/ DIFFERENTIAL (12/10/2024 10:23 AM [facility]) [facility] WBC 7.3 4.0 - 10.7 x10E9/L 12/10/2024 10:47 AM [facility] RBC Count 5.21 4.30 - 5.80 x10E12/L 12/10/2024 10:47 AM [facility] Hemoglobin 12.9(L) 13.3 - 17.5 g/dL 12/10/2024 10:47 AM [facility] Hematocrit 40.5 38.7 - 51.1 % 12/10/2024 10:47 AM [facility] MCV 77.7(L) 80.0 - 98.0 fL 12/10/2024 10:47 AM [facility] MCH 24.8(L) 26.7 - 33.6 pg 12/10/2024 10:47 AM [facility] MCHC 31.9 31.7 - 36.3 g/dL 12/10/2024 10:47 AM [facility] RDW-CV 14.6 11.3 - 14.8 % 12/10/2024 10:47 AM [facility] Platelet Count 397 150 - 420 x10E9/L 12/10/2024 10:47 AM [facility] MPV 9.3 7.8 - 11.4 fL 12/10/2024 10:47 AM [facility] Neutrophil % 71.8 41.0 - 74.0 % 12/10/2024 10:47 AM [facility] Lymphocyte % 8.1(L) 17.0 - 47.0 % 12/10/2024 10:47 AM [facility] Monocyte % 18.6(H) 3.0 - 11.0 % 12/10/2024 10:47 AM [facility] Eosinophil % 1.1 0.0 - 7.0 % 12/10/2024 10:47 AM [facility] Basophil % 0.1 0.0 - 1.6 % 12/10/2024 10:47 AM [facility] Immature Granulocytes % 0.3 0.0 - 1.0 % 12/10/2024 10:47 AM [facility] Neutrophil Absolute 5.24 1.60 - 7.50 x10E9/L 12/10/2024 10:47 AM [facility] Lymphocyte Absolute 0.59(L) 1.00 - 4.40 x10E9/L 12/10/2024 10:47 AM [facility] Monocyte Absolute 1.36(H) 0.15 - 1.00 x10E9/L 12/10/2024 10:47 AM [facility] Eosinophil Absolute 0.08 0.00 - 0.60 x10E9/L 12/10/2024 10:47 AM [facility] Basophil Absolute 0.01 0.00 - 0.13 x10E9/L 12/10/2024 10:47 AM [facility] Blood BLOOD SPECIMEN / Unknown Lab Venipuncture / Unknown 12/10/2024 10:23 AM HERB DOCTOR 12/10/2024 10:42 AM [facility] Lani Strange MD LAB - HEMATOLOGY ORD ERABLES [facility] [address] [place] [address], [facility] [phone] * XR Chest 2Vw (12/10/2024 9:48 AM HERB DOCTOR) Anatomical Region Laterality Modality Chest Computed Radiogr aphy 12/10/2024 9:41 AM HERB DOCTOR Narrative 12/10/2024 9:46 AM HERB DOCTOR PROCEDURE: XR CHEST 2VW, DATE/TIME OF EXAM: 12/10/2024 9:32 AM, LOCATION [facility] INDICATION: S42.201A: Closed fracture of proximal end [...] report was drafted by Leonora Cantu MD (enrollment services vice president) 12/10/2024 9:41 AM. Laz Oneal MD have personally reviewed and interpreted this examination/study. > Interpreting Provider: Laz Villarreal MD on 12/10/2024 9:46 AM Procedure Note Laz Villarreal MD - 12/10/2024 PROCEDURE: XR CHEST 2VW, DATE/TIME OF EXAM: 12/10/2024 9:32 AM, LOCATION [facility] INDICATION: S42.201A: Closed fracture of proximal end [...] report was drafted by Leonora Cantu MD (enrollment services vice president) 12/10/2024 9:41 AM. Laz Oneal MD have personally reviewed and interpreted this examination/study. > Interpreting Provider: Laz Villarreal MD on 12/10/2024 9:46 AM Lani Strange MD DIAGNOSTIC IMAGING O RDERABLES * CT Shoulder Right Wo Contrast (12/07/2024 7:58 AM HERB DOCTOR) Anatomical Region Laterality Modality Upper Extremity Computed Tomogra phy 12/07/2024 8:29 AM HERB DOCTOR Impressions 12/07/2024 9:21 AM HERB DOCTOR IMPRESSION: Comminuted moderately displaced, angulated fracture of the humeral neck. This study was dictated by medical transcription radiology Tyler Krishna MD and reviewed and edited by the attending. I, Alen Martinez MD have personally reviewed and interpreted this examination/study. > Interpreting Provider: Alen Martinez MD on 12/07/2024 9:21 AM Narrative 12/07/2024 9:21 AM HERB DOCTOR PROCEDURE: CT SHOULDER RIGHT WO CONTRAST DATE/TIME [...] humeral neck. This study was dictated by medical transcription radiology Tyler Krishna MD and reviewed and edited by the attending. I, Alen Martinez MD have personally reviewed and interpreted this examination/study. > Interpreting Provider: Alen Martinez MD on 12/07/2024 9:21 AM [address] Strange MD CT ORDERABLES from Last 3 Months Advance Directives * Full Code (Latest Code Status on File) Date Activated Date Inactivated Comments 12/20/2024 10:06 PM 12/22/2024 3:58 PM Care Teams Chief Executive Relationship Specialty Start Date End Date Salvador Love MD [address] [address] PCP - General Family Medicine 12/20/24
--- OUTSIDE RECORDS SUMMARY | 2024-12-25 10:53 | XMS_ITS ---
Author Organization [facility] Address [address] [place], [place] [id number] Care Team Providers Care Photovoltaic Fabrication Technician Name Role Phone SALVATORE CLARK Unavailable [phone] Salvador Love Unavailable Unavailable Allergies Allergen (clinical drug ingredient) Drug/Non Drug Allergy documented on EMR Reaction Allergy Type Onset Date Status amoxicillin Amoxicillin Unknown Drug Allergy 04/20/2021 ac tive REASON FOR VISIT *General care Vital Signs Height 71.00 in 06/03/2024 Weight 270 lbs 06/03/2024 BMI 37.65 kg/m2 06/03/2024 Height-cm 180.34 cm 06/03/2024 Weight-kg 122.47 kg 06/03/2024 Encounters Encounter Location Date Provider Diagnosis [facility] [place] [address] [place], [place] [phone] 06/03/2024 SALVATORE CLARK Fungal infection of nail B35.1 ; Pain in right toe(s) M79.674 ; Pain in left toe(s) M79.675 ; Atherosclerosis of [place] arteries of extremities with intermittent claudication, bilateral legs I70.213 and Type 2 diabetes mellitus with other diabetic neurological complication E11.49 Assessments Encounter Date Diagnosis (ICD Code) Assessment Notes Treatment Notes Treatment Clinical Notes Section Notes 06/03/2024 Fungal infection of nail (ICD-10 - B35.1) 06/03/2024 Pain in right toe(s) (ICD-10 - M79.674) 06/03/2024 Pain in left toe(s) (ICD-10 - M79.675) 06/03/2024 Atherosclerosis of [place] arteries of extremities with intermittent claudication, bilateral legs (ICD-10 - I70.213) 06/03/2024 Type 2 diabetes mellitus with other diabetic neurological complication (ICD-10 - E11.49) 06/03/2024 Other Nails 1-5 Bilateral were debrided extensively [...] Notes * JEYSALVADOR PDOB:[birth year] (44 yo M)Acc No.[id number]:06/03/2024 Patient: SALVADOR CHÁVEZ Provider: Apolinar Clark DPM :1980 A ge:44 Y S ex:Male Date:06/03/2024 Address:[address] [place] [address] Subjective: * Chief Complaints: * 1 . *General care. * HPI: H PI: General care P atient presents to the office for diabetic foot care. Patient states that their nails are thickened, elongated and painful. Patient states that it is aggravated by shoe gear. Onset is gradual. Patient denies taking blood thinners. Date last seen by Dr. Love was 11/2023. Initials sea. * ROS: G eneral / [...] - M79.675 4 . A therosclerosis of [place] arteries of extremities with intermittent claudication, bilateral legs - I70.213 5 . T ype 2 diabetes mellitus with other diabetic neurological complication - E11.49 Plan: * Treatment: * Billing Information: * Visit Code: 16561 Office Visit, Est Pt., Level 3. * Procedure Codes: * Sign off status: Completed true * Provider: Apolinar Clark DPM Date: 0 06/03/2024 Generated for Zoey morgan/Randell/Jenny on: 0 12/25/2024 10:52 AM CORE BAKER History and Physical Notes * HPI (History of Present Illness) Category Sub-Category Detail Notes Category Not es HPI General care Patient presents to the office for diabetic foot care. Patient states that their nails are thickened, elongated and painful. Patient states that it is aggravated by shoe gear. Onset is gradual. Patient denies taking blood thinners. Date last seen by Dr. Love was 11/2023. Initials sea Examination Category Sub-Category Detail Notes [...]
--- OUTSIDE RECORDS SUMMARY | 2024-12-25 10:53 | XMS_ITS | Patient Health Record ---
Author Organization [facility] Address [address] [facility] [address] [place], [place] [id number] Care Team Providers Care Glass Etcher Helper Name Role Phone MIRANDASALVATORE Unavailable [phone] Salvador Love Unavailable Unavailable Allergies Allergen (clinical drug ingredient) Drug/Non Drug Allergy documented on EMR Reaction Allergy Type Onset Date Status amoxicillin Amoxicillin Unknown Drug Allergy 04/20/2021 ac tive Reason For Referral No Information Immunizations Vaccine Route Administration Date Status Comme nts Influenza, high dose seasonal Unknown 09/16/2023 Admini stered Vital Signs Height-cm 180.34 cm 06/03/2024 Weight-kg 122.47 kg 06/03/2024 Height 71.00 in 06/03/2024 Weight 270 lbs 06/03/2024 BMI 37.65 kg/m2 06/03/2024 Encounters Encounter Location Date Provider Diagnosis [facility] [place] [address] [place] [phone] 01/23/2024 SALVATORE JEAN Fungal infection of nail B35.1 ; Tinea pedis B35.3 ; Pain in right toe(s) M79.674 ; Pain in left toe(s) M79.675 and Atherosclerosis of [place] arteries of extremities with intermittent claudication, bilateral legs I70.213 [facility] [place] [address] [place], [place] [phone] 03/26/2024 SALVAOTRE JEAN Fungal infection of nail B35.1 ; Pain in right toe(s) M79.674 ; Pain in left toe(s) M79.675 and Atherosclerosis of [place] arteries of extremities with intermittent claudication, bilateral legs I70.213 [facility] [place] [address] [place] [id number] 06/03/2024 SALVATORE JEAN Fungal infection of nail B35.1 ; Pain in right toe(s) M79.674 ; Pain in left toe(s) M79.675 ; Atherosclerosis of [place] arteries of extremities with intermittent claudication, bilateral legs I70.213 and Type 2 diabetes mellitus with other diabetic neurological complication E11.49 Assessments Encounter Date Diagnosis (ICD Code) Assessment Notes Treatment Notes Treatment Clinical Notes Section Notes 01/23/2024 Fungal infection of nail (ICD-10 - B35.1) 03/26/2024 Fungal infection of nail (ICD-10 - B35.1) 06/03/2024 Pain in right toe(s) (ICD-10 - M79.674) 06/03/2024 Fungal infection of nail (ICD-10 - B35.1) 06/03/2024 Pain in left toe(s) (ICD-10 - M79.675) 03/26/2024 Pain in right toe(s) (ICD-10 - M79.674) 01/23/2024 Tinea pedis (ICD-10 - B35.3) 03/26/2024 Pain in left toe(s) (ICD-10 - M79.675) 01/23/2024 Pain in right toe(s) (ICD-10 - M79.674) 06/03/2024 Atherosclerosis of [place] arteries of extremities with intermittent claudication, bilateral legs (ICD-10 - I70.213) 01/23/2024 Pain in left toe(s) (ICD-10 - M79.675) 03/26/2024 Atherosclerosis of [place] arteries of extremities with intermittent claudication, bilateral legs (ICD-10 - I70.213) 06/03/2024 Type 2 diabetes mellitus with other diabetic neurological complication (ICD-10 - E11.49) 01/23/2024 Atherosclerosis of [place] arteries of extremities with intermittent claudication, bilateral legs (ICD-10 - I70.213) 01/23/2024 Other Nails 1-5 Bilateral were debrided extensively with nail nippers and emery board, reducing length and girth to pink healthy tissue with any subungual debris and necrotic tissue removed Use medication prescribed by his PCP 03/26/2024 Other Nails 1-5 Bilateral were debrided extensively with nail nippers and emery board, reducing length and girth to pink healthy tissue with any subungual debris and necrotic tissue removed 06/03/2024 Other Nails 1-5 Bilateral were debrided extensively with nail nippers and emery board, reducing length and girth to pink healthy tissue with any subungual debris and necrotic tissue removed Plan Of Treatment No Information Insurance Providers Payer Name Payer Address Payer Phone Subscriber Number Group Number Insured Name Patient Relationship to Insured Coverage Start Date Coverage End Date [employer] [address] [place] [address] [id number] SALVADOR KAT Self - patient is the insured
--- OUTSIDE RECORDS SUMMARY | 2024-12-25 10:53 | XMS_ITS | Encounter Summary ---
Author Organization [facility] Address [address] [place] [address] Phone Care Team Providers Care Bilingual Recruiter Name Role Phone Salvador Love MD Primary Care Provider [phone] Curry Short DPM Unavailable [phone] Fernando Beyer MD Unavailable Reason for Visit * Reason Comments Medication Refill Encounter Details Date Type Department Care Team (Late st Contact Info) Description 09/16/2023 Refill [facility] [address] [place] [address] Fernando Beyer MD [address] [place] [address] Medication Refill Social History Tobacco Use Types Packs/Day Years Used Date Smoking Tobacco: Former Cigarettes 1 10 0 11/17/1999 - 11/17/2009 Smokeless Tobacco: Never Alcohol Use Standard Drinks/Week Comments Yes 0 (1 standard drink = 0.6 oz pur e alcohol) weekly PHQ-2 Answer Date Recorded Total Score - Questions 1-9 0 05/17 Education Answer Date Recorded What is the highest level of school you have completed or the highest degree you have received? 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 Office Visit [facility] - Family Medicine [facility] [address] [place] [address] Salvador Love MD [address] [address] documented as of this encounter Visit Diagnoses Not on filedocumented in this encounter Additional Health Concerns Assessment Noted Time PHQ-9 Depression Total Score: 0 05/27/20 23 5:00 PM CDT documented as of this encounter Care Teams Bilingual Recruiter Relationship Specialty Start Date End Date Salvador Love MD [address] [address] PCP - General Family Medicine 10/17/15 Curry Short DPM [address] [address] Consulting Physician Podiatry 05/08/17 Fernando Beyer MD [address] [place] [address] Consulting Physician Neurology 12/02/22 documented as of this encounter
--- OUTSIDE RECORDS SUMMARY | 2024-12-25 10:53 | XMS_ITS | Clinical Summary ---
Author Organization [facility] Address [address], [facility] [address] [place] [address] Phone Care Team Providers Care Qa Software Tester Name Role Phone Salvador Love MD Primary Care Provider [phone] Curry Short DPM Unavailable [phone] Fernando Beyer MD Unavailable [phone] Allergies Active Allergy Reactions Criticality Noted Date Comments Amoxicillin Unknown Penicillins Unknown Reaction: Unknown, Medications ONE TOUCH ULTRA TEST Strip 5 Active BD INSULIN SYRINGE ULTRAFINE 31G X 5/16 0.5 ML Misc 6 Active Cholecalcifero l (VITAMIN D PO) Take by mouth. Activ e atorvastatin (LIPITOR) 40 MG Tablet 0 Active Farxiga 10 MG Tablet 2 Active clotrimazole-b etamethasone (LOTRISONE) 1-0.05 % Cream Application Site: apply bid to right ankle (Description and Location) 45 g 3 Active NovoLOG 100 UNIT/ML Solution Use via insulin pump up to 150 units daily 4 Active sildenafil citrate (VIAGRA) 100 MG Tablet Take 1 Tablet by mouth as needed for Erectile Dysfunction. 30 Tablet 2 4 Active Fingolimod HCl 0.5 MG Capsule TAKE 1 CAPSULE BY MOUTH 1 TIME A DAY 90 Capsule 1 4 Active amitriptyline (ELAVIL) 50 MG Tablet Take 1 Tablet by mouth nightly. 90 Tablet 3 5 Active lisinopril (PRINIVIL, ZESTRIL) 5 MG Tablet Take 1 Tablet by mouth daily. 90 Tablet 3 5 Active amitriptyline (ELAVIL) 50 MG Tablet TAKE 1 TABLET NIGHTLY 90 Tablet 1 4 12/13/19 25 Discontin ued(Reord er) lisinopril (PRINIVIL, ZESTRIL) 5 MG Tablet TAKE 1 TABLET DAILY 90 Tablet 1 4 12/13/19 25 Discontin ued(Reord er) lisinopril (PRINIVIL, ZESTRIL) 5 MG Tablet Take 1 Tablet by mouth daily. 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 04/23/2018 12/19/2023 Overview (12/19/2023): Last Assessment & Plan: Chronic, well-controlled Continue statin therapy with atorvastatin 40 mg daily Dermatophytosis of nail 05/08/2017 Type 1 diabetes mellitus with hyperglycemia 07/201712/19/2023 Overview (12/19/2023): Last Assessment & Plan: Hba1c was Lab Results Component Value Date [...] glucose to come down after taking boluses Medication monitoring encounter 04/23/2017 Abdominal mass, left upper quadrant 06/04/2016 HTN (hypertension) 05/16/2016 Type 1 diabetes mellitus without complication Hyperlipidemia 11/24/2015 Relapsing remitting multiple sclerosis Overview (10/31/2015): Discussed risks of different medication regiments. Available modalities to monitor for side effects explained. Also dicussed that we are in the process of contacting his insurance company as well as the drug drum tester. Given his initial MRI showing a very aggressive form of MS, we do believe he will be irreparable harmed of treatment is interrupted. Discussed continuing tysabri for another year and then may reconsider other treatment options. Adhesive capsulitis of shoulder Muscle spasm Encounters Date Type Department Care Team Description 12/13/2024 1:30 PM GEOPHYSICS PROFESSOR Office Visit [facility] [address] [place] [address] Salvador Love MD Preop cardiovascular exam (Primary Dx); Acute pain of right shoulder; Closed fracture of head of right humerus, initial encounter Discharge Disposition: Discharged to home or Selfcare 12/13/[address] [facility] [address] [place] [address] Salvador Love MD 12/11/2024 Travel 10/26/2024 Results Follow-Up [facility] [address] [place] [address] Lizabeth Gaxiola RN 10/25/2024 Refill [facility] [address] [place] [address] Fernando Beyer MD Medication Refill 10/23/2024 7:56 AM GEOPHYSICS PROFESSOR - 10/23/2024 11:59 PM GEOPHYSICS PROFESSOR Hospital Encounter [facility] [address] [facility] [place] [address] Fernando Beyer MD Discharge Disposition: Discharged to home or Selfcare 10/23/2024 7:56 AM GEOPHYSICS PROFESSOR - 10/23/2024 11:59 PM GEOPHYSICS PROFESSOR Hospital Encounter [facility] [address] [facility] [place] [address] Fernando Beyer MD Discharge Disposition: Discharged to home or Selfcare 10/21/2024 Travel from Last 3 Months Immunizations Immunization Administration Dates Next Due Covid-19, Mrna, Lnp-s, PF, 1 00 mcg/0.5 mL Dose (Moderna) 02/03/2021,01/06/2021 DTAP VACCINE 06/17/2013 Influenza Vaccine 09/20/2019, 8,08/22/2016,08/22 Influenza Vaccine greater than 3 yrs 08/17/2014 Influenza Vaccine, MDCK,quad rivalent, pres free 08/16/2023,08/28/2022,09/28/2021,09/04,09/03/2017 Influenza Vaccine, Quadrivalent, PF 09/10/2018 Influenza, Injectable, Mdck, Preservative Free 09/26/2024 Influenza, Seasonal, Injecta ble, Undefined 08/25/2014,08/17/2014,10/17/2013 Pneumococcal Vaccine Adult - 23 Valent 0 Pneumococcal conjugate PCV20 , polysaccharide [id number] conjugate, adjuvant, PF 11/07/2023 TDAP Vaccine 06/23/2013 Family History Medical History Relation Name Comments Hyperthyroidism Father Lung Cancer Father No Known Problems Mother Relation Name Status Comments Father Alive Mother Alive Social History Tobacco Use Types Packs/Day Years Used Date Smoking Tobacco: Former Cigarettes 1 10 0 11/17/1999 - 11/17/2009 Smokeless Tobacco: Never Tobacco Cessation:Counseling Given: No Alcohol Use Standard Drinks/Week Comments Yes 0 (1 standard drink = 0.6 oz pur e alcohol) weekly [facility] Utilities Answer Date Recorded In the past 12 months has th e electric, gas, oil, or water company threatened to shut off services in your home? No 12/11/2024 Social Connection and Isolat ion Panel [NHANES] Answer Date Recorded In a typical week, how many times do you talk on the phone with family, friends, or neighbors? Once a week 12/11/2024 How often do you get togethe r with friends or relatives? Once a week 12/11/2024 How often do you attend chur ch or latter day services? More than 4 times per year 12/11/2024 Do you belong to any clubs o r organizations such as mormonism groups, unions, fraternal or athletic groups, or school groups? Yes 12/11/2024 How often do you attend meet ings of the clubs or organizations you belong to? 1 to 4 times per year 12/11/2024 Are you , , di vorced, , never , or living with a partner? 12/11/2024 AUDIT-C Answer Date Recorded Q1: How often do you have a drink containing alc ohol? 2-4 times a month 12/11/2024 Q2: How many drinks containi ng alcohol do you have on a typical day when you are drinking? 3 or 4 12/11/2024 Q3: How often do you have si x or more drinks on one occasion? Never 12/11/2024 Overall Financial Resource Strain (CARDIA) Answe r Date Recorded How hard is it for you to pa y for the very basics like food, housing, medical care, and heating? Not very hard 12/11/2024 PHQ-2 Answer Date Recorded Total Score - Questions 1-9 0 08/0 06/2024 [facility] - Occupational Stress Questionnaire Answer Date Recorded Do you feel stress - tense, restless, nervous, or anxious, or unable to sleep at night because your mind is troubled all the time - these days? To some extent 12/11/2024 Exercise Vital Sign Answer Date Recorde d On average, how many days pe r week do you engage in moderate to strenuous exercise (like a brisk walk)? 3 days 12/11/2024 On average, how many minutes do you engage in exercise at this level? 30 min 12/11/2024 Hunger Vital Sign Answer Date Recorded Within the past 12 months, y ou worried that your food would run out before you got the money to buy more. Never true 12/11/19 Within the past 12 months, t he food you bought just didn't last and you didn't have money to get more. Never true 12/11/2024 PRAPARE - Transportation Answer Date Re corded In the past 12 months, has l ack of transportation kept you from medical appointments or from getting medications? No 11/18 In the past 12 months, has l ack of transportation kept you from meetings, work, or from getting things needed for daily living? No 12/11/2024 Housing Stability Vital Sign Answer Ky e Recorded In the last 12 months, was t here a time when you were not able to pay the mortgage or rent on time? No 12/19/2023 In the last 12 months, how many places have you lived? 1 12/19/2023 In the last 12 months, was t here a time when you did not have a steady place to sleep or slept in a long-term (including now)? No 12/19/2023 Housing Stability Vital Sign Answer Ky e Recorded In the last 12 months, was t here a time when you were not able to pay the mortgage or rent on time? No 12/11/2024 Number of Times Moved in the Last Year Not on fi le 12/11/2024 At any time in the past 12 m [facility], were you homeless or living in a long-term (including now)? No 12/11/2024 Education Answer Date Recorded What is the highest level of school you have completed or the highest degree you have received? 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, [employer]) 05/26/2023 Sexually Active Control Partners Comments Yes Female Sex and Gender Information Value Date Recorded Sex Assigned at Not on file Legal Sex Male 3:09 AM GEOPHYSICS PROFESSOR Gender Identity Not on file Sexual Orientation Not on file Last Filed Vital Signs Vital Sign Reading Time Taken Comments Blood Pressure 130/78 12/13/2024 1:22 PM GEOPHYSICS PROFESSOR Pulse 103 12/13/2024 1:22 PM GEOPHYSICS PROFESSOR Temperature 36.1 C (96.9 F) 12/13/2024 1:22 PM GEOPHYSICS PROFESSOR Respiratory Rate 16 12/13/2024 1:22 PM GEOPHYSICS PROFESSOR Oxygen Saturation 97% 12/13/2024 1:22 PM GEOPHYSICS PROFESSOR Inhaled Oxygen Concentration - - Weight 108.4 kg (239 lb) 12/13/2024 1:22 PM GEOPHYSICS PROFESSOR Height 180.3 cm (5' 11 ) 12/13/2024 1:22 PM GEOPHYSICS PROFESSOR Body Mass Index 33.33 12/13/2024 1:22 PM GEOPHYSICS PROFESSOR Plan of Treatment Upcoming Encounters Date Type Department Care Team (Late st Contact Info) Description 12/28/2024 6:00 PM GEOPHYSICS PROFESSOR Office Visit [facility] [address] [place] [address] Salvador Love MD [id number] [address] Health Maintenance Due Date Last Done Comments Hepatitis C Virus (HCV) Screening 1980 Hepatitis B Immunization (1 of 3 - 19+ 3-dose series) 02/01/2000 Diabetes: Foot Exam 05/27/2024 05/27/2023, Diabetes: Hemoglobin A1c 03/03/2025 024, 03/04/2024, 08/20/2023, Additional history exists Diabetes: Eye Exam 10/06/2025 10/06/2024, 0 07/07/2024, 05/05/2024, Additional history exists Diabetes: Nephropathy Screening 10/23/2025 10/23/2024, 05/15/2024, 11/03/2023, Additional history exists Respiratory Syncytial Virus (RSV) Immunization (Adult) (1 - 1-dose 75+ series) 02/01/2056 DTaP/Tdap/Td Immunization Discontinued 06/23/2013, 11/2012 Pneumococcal Immunization Combined Completed 11/07/2023, 06/29/2010 Influenza Immunization Completed 4, 08/16/2023, 08/28/2022, Additional history exists SARS-COV-2 Immunization Completed 09/26/20 24, 04/26/2023, 11/07/2021, Additional history exists Meningococcal Immunization (ACWY) Aged Out No longer eligible based on patient's age to complete this topic Rotavirus Immunization Aged Out No lo nger eligible based on patient's age to complete this topic Procedures Procedure Name Priority Date/Time Associated Diagnosis Comments MRI BRAIN W/WO CONTRAST Routine 10/23/2024 10:50 AM GEOPHYSICS PROFESSOR Relapsing remitting multiple sclerosis (HCC) MRI C-SPINE W/WO CONTRAST Routine 10/23/2024 10:41 AM GEOPHYSICS PROFESSOR Relapsing remitting multiple sclerosis (HCC) POCT CREATININE Routine 10/23/2024 8:39 AM GEOPHYSICS PROFESSOR UR MICROALBUMIN/CREATI NINE RATIO RANDOM Routine 10/23/2024 8:39 AM GEOPHYSICS PROFESSOR Primary hypertension Pure hypercholesterolemia CBC WITH AUTO DIFFERENTIAL Routine 10/23/2024 8:18 AM GEOPHYSICS PROFESSOR Relapsing remitting multiple sclerosis (HCC) VITAMIN D, 25 HYDROXY TOTAL Routine 10/23/2024 8:18 AM GEOPHYSICS PROFESSOR Relapsing remitting multiple sclerosis (HCC) COMPLETE BLOOD COUNT (CBC) WITH DIFF Routine 10/23/2024 8:18 AM GEOPHYSICS PROFESSOR Relapsing remitting multiple sclerosis (HCC) HM DILATED EYE EXAM 10/06/2024 12:00 AM GEOPHYSICS PROFESSOR HEMOGLOBIN A1C W/ ESTIMATED GLUCOSE Routine 05/18/2023 12:37 PM CDT PODIATRY CONSULT Routine 04/24/2021 from Last 3 Months or Most Recently Relevant to Health Maintenance Results * MRI BRAIN W/WO CONTRAST (10/23/2024 10:50 AM GEOPHYSICS PROFESSOR) Anatomical Region Laterality Modality Head N/A Magnetic Resonan ce 10/25/2024 11:3 2 AM GEOPHYSICS PROFESSOR Impressions 10/25/2024 11:35 AM GEOPHYSICS PROFESSOR IMPRESSION: 1. No acute intracranial process with chronic findings as above to include stable appearance of supratentorial and infratentorial white matter disease consistent with provided history of multiple sclerosis. 2. Redemonstration of multifocal cord lesions about the visualized cervicothoracic spine, again maximal at the level of the odontoid process, consistent with provided history of multiple sclerosis. 3. Otherwise, redemonstration of spondylosis and degenerative disc disease of the cervical spine as detailed level by level above. Narrative 10/25/2024 11:35 AM GEOPHYSICS PROFESSOR EXAM DESCRIPTION: MRI BRAIN W/WO CONTRAST; MRI C-SPINE W/WO CONTRAST REASON FOR STUDY: Re-evaluation of multiple sclerosis diagnosed 2014. No current patient complaints. History of type 2 diabetes; no cancer history. No intracranial, vascular, spinal, or ear surgeries. History of unspecified eye surgery. TECHNIQUE: MRI BRAIN: Multiplanar imaging includes noncontrast T1, T2, FLAIR, diffusion with ADC map and post contrast T1 sequences. Additional sequence(s) sensitive to blood products. MRI CERVICAL SPINE: Sagittal and axial imaging of the cervical spine includes T1, T2, STIR and gradient echo sequences. Post contrast T1-weighted images. Images saved to PACS. CONTRAST TYPE/DOSE: 20 mL ProHance injected via right AC without reported incident. COMPARISON: MRI brain/cervical spine without contrast 06/08/2023; MRI brain without and with contrast 04/12/2023 and 05/18/2023; MRI cervical spine without and with contrast 11/01/2017 FINDINGS: MRI BRAIN: CEREBRUM: As below. No acute intra-axial hemorrhage. No edema, mass effect, midline shift, or herniation. No abnormal enhancement to suggest active demyelinating lesions. WHITE MATTER: Redemonstration of overall severe, greater than 30 discrete lesions, burden of bilateral juxtacortical through periventricular, callosal-pericallosal (to include radially-oriented lesions consistent with Reaves's fingers), and pontine, brachii pontine, and cerebellar hemispheres white matter lesions consistent with provided history of multiple sclerosis. Multiple lesions demonstrate a component of T1 hypointensity consistent with black holes. POSTERIOR FOSSA: No acute abnormality. As above. No abnormal enhancement to suggest active demyelinating lesions. DIFFUSION IMAGING: No restricted diffusion to suggest cytotoxic and/or intramyelinic edema as evidence of acute/subacute ischemia/infarct or active demyelinating lesions. EXTRAAXIAL SPACES: No extra-axial fluid collection. No extra-axial mass. No abnormal enhancement. BRAIN VOLUME: Mild cerebral volume loss without predilection, advanced for age. Correlate with clinical context. PITUITARY: Unremarkable. VASCULATURE: No flow disturbance evident. CALVARIUM: Unremarkable. ORBITS: No acute abnormality. Left [place] ocular lens replaced. PARANASAL SINUSES AND MASTOIDS: No significant mucosal thickening and no fluid levels of the paranasal sinuses. Mastoid air cells well aerated. OTHER: No other significant finding. MRI CERVICAL SPINE: ALIGNMENT: Normal. VERTEBRAE: No MR evidence of acute-subacute fracture. Vertebral body heights unchanged. Spondylosis. Marrow signal within normal limits. DISCS: Multilevel variable intervertebral disc desiccation and loss of intervertebral disc height. HARDWARE: None in the cervical spine. CORD: Redemonstration of multifocal variably eccentric short-segment predominant T2/STIR hyperintense cord lesions about the visualized cervicothoracic spine, again maximal at the level of the odontoid process through base of the C2 vertebral body (with redemonstration of associated thinning of the cervical cord at the site of this lesion) consistent with provided history of multiple sclerosis. No abnormal enhancement to suggest active demyelinating lesions. INDIVIDUAL DISC LEVELS: C1-C2: No spinal canal stenosis. C2-C3: No diffuse disc bulge or focal herniation. No spinal canal stenosis. No neural foraminal stenosis. C3-C4: No significant diffuse disc bulge or focal herniation. No spinal canal stenosis. No neural foraminal stenosis. C4-C5: No significant diffuse disc bulge or focal herniation. Bilateral hypertrophic facet arthropathy. Bilateral uncovertebral joint disease. No spinal canal stenosis. No significant neural foraminal stenosis. C5-C6: Posterior disc osteophyte complex indenting the ventral thecal sac. Bilateral hypertrophic facet arthropathy. Bilateral uncovertebral joint disease. Mild spinal canal stenosis. Bilateral neural foraminal stenosis. C6-C7: Tiny shallow central disc protrusion slightly indenting the ventral thecal sac. Bilateral facet arthropathy. No spinal canal stenosis. No neural foraminal stenosis. C7-T1: No diffuse disc bulge or focal herniation. Bilateral facet arthropathy. No spinal canal stenosis. No neural foraminal stenosis. UPPER THORACIC: Incompletely imaged. No significant spinal stenosis or foraminal stenosis. OTHER: No other significant finding. THIS IS AN ELECTRONICALLY VERIFIED FINAL REPORT 10/25/2024 11:32 AM - Electronically signed by Mika Torres M.D. SHAKA: SHAKA Report ID: [id number] Reading Location: [id number] Procedure Note Mika Torres MD - 10/25/2024 EXAM DESCRIPTION: MRI BRAIN W/WO CONTRAST; MRI C-SPINE W/WO CONTRAST REASON FOR STUDY: Re-evaluation of multiple sclerosis diagnosed 2014. No current patient complaints. History of type 2 diabetes; no cancer history. No intracranial, vascular, spinal, or ear surgeries. History of unspecified eye surgery. TECHNIQUE: MRI BRAIN: Multiplanar imaging includes noncontrast T1, T2, FLAIR, diffusion with ADC map and post contrast T1 sequences. Additional sequence(s) sensitive to blood products. MRI CERVICAL SPINE: Sagittal and axial imaging of the cervical spine includes T1, T2, STIR and gradient echo sequences. Post contrast T1-weighted images. Images saved to PACS. CONTRAST TYPE/DOSE: 20 mL ProHance injected via right AC without reported incident. COMPARISON: MRI brain/cervical spine without contrast 06/08/2023; MRI brain without and with contrast 04/12/2023 and 05/18/2023; MRI cervical spine without and with contrast 11/01/2017 FINDINGS: MRI BRAIN: CEREBRUM: As below. No acute intra-axial hemorrhage. No edema, mass effect, midline shift, or herniation. No abnormal enhancement to suggest active demyelinating lesions. WHITE MATTER: Redemonstration of overall severe, greater than 30 discrete lesions, burden of bilateral juxtacortical through periventricular, callosal-pericallosal (to include radially-oriented lesions consistent with Reaves's fingers), and pontine, brachii pontine, and cerebellar hemispheres white matter lesions consistent with provided history of multiple sclerosis. Multiple lesions demonstrate a component of T1 hypointensity consistent with black holes. POSTERIOR FOSSA: No acute abnormality. As above. No abnormal enhancement to suggest active demyelinating lesions. DIFFUSION IMAGING: No restricted diffusion to suggest cytotoxic and/or intramyelinic edema as evidence of acute/subacute ischemia/infarct or active demyelinating lesions. EXTRAAXIAL SPACES: No extra-axial fluid collection. No extra-axial mass. No abnormal enhancement. BRAIN VOLUME: Mild cerebral volume loss without predilection, advanced for age. Correlate with clinical context. PITUITARY: Unremarkable. VASCULATURE: No flow disturbance evident. CALVARIUM: Unremarkable. ORBITS: No acute abnormality. Left [place] ocular lens replaced. PARANASAL SINUSES AND MASTOIDS: No significant mucosal thickening and no fluid levels of the paranasal sinuses. Mastoid air cells well aerated. OTHER: No other significant finding. MRI CERVICAL SPINE: ALIGNMENT: Normal. VERTEBRAE: No MR evidence of acute-subacute fracture. Vertebral body heights unchanged. Spondylosis. Marrow signal within normal limits. DISCS: Multilevel variable intervertebral disc desiccation and loss of intervertebral disc height. HARDWARE: None in the cervical spine. CORD: Redemonstration of multifocal variably eccentric short-segment predominant T2/STIR hyperintense cord lesions about the visualized cervicothoracic spine, again maximal at the level of the odontoid process through base of the C2 vertebral body (with redemonstration of associated thinning of the cervical cord at the site of this lesion) consistent with provided history of multiple sclerosis. No abnormal enhancement to suggest active demyelinating lesions. INDIVIDUAL DISC LEVELS: C1-C2: No spinal canal stenosis. C2-C3: No diffuse disc bulge or focal herniation. No spinal canal stenosis. No neural foraminal stenosis. C3-C4: No significant diffuse disc bulge or focal herniation. No spinal canal stenosis. No neural foraminal stenosis. C4-C5: No significant diffuse disc bulge or focal herniation. Bilateral hypertrophic facet arthropathy. Bilateral uncovertebral joint disease. No spinal canal stenosis. No significant neural foraminal stenosis. C5-C6: Posterior disc osteophyte complex indenting the ventral thecal sac. Bilateral hypertrophic facet arthropathy. Bilateral uncovertebral joint disease. Mild spinal canal stenosis. Bilateral neural foraminal stenosis. C6-C7: Tiny shallow central disc protrusion slightly indenting the ventral thecal sac. Bilateral facet arthropathy. No spinal canal stenosis. No neural foraminal stenosis. C7-T1: No diffuse disc bulge or focal herniation. Bilateral facet arthropathy. No spinal canal stenosis. No neural foraminal stenosis. UPPER THORACIC: Incompletely imaged. No significant spinal stenosis or foraminal stenosis. OTHER: No other significant finding. THIS IS AN ELECTRONICALLY VERIFIED FINAL REPORT 10/25/2024 11:32 AM - Electronically signed by Mika Torres M.D. SHAKA: SHAKA Report ID: [id number] Reading Location: [place] [address] IMPRESSION: 1. No acute intracranial process with chronic findings as above to include stable appearance of supratentorial and infratentorial white matter disease consistent with provided history of multiple sclerosis. 2. Redemonstration of multifocal cord lesions about the visualized cervicothoracic spine, again maximal at the level of the odontoid process, consistent with provided history of multiple sclerosis. 3. Otherwise, redemonstration of spondylosis and degenerative disc disease of the cervical spine as detailed level by level above. us Fernando Beyer MD [facility] MR ORDERABLES Final Resu lt * MRI C-SPINE W/WO CONTRAST (10/23/2024 10:41 AM GEOPHYSICS PROFESSOR) Anatomical Region Laterality Modality Spine, C-spine N/A Magnetic Resonan ce 10/25/2024 11:3 2 AM GEOPHYSICS PROFESSOR Impressions 10/25/2024 11:35 AM GEOPHYSICS PROFESSOR IMPRESSION: 1. No acute intracranial process with chronic findings as above to include stable appearance of supratentorial and infratentorial white matter disease consistent with provided history of multiple sclerosis. 2. Redemonstration of multifocal cord lesions about the visualized cervicothoracic spine, again maximal at the level of the odontoid process, consistent with provided history of multiple sclerosis. 3. Otherwise, redemonstration of spondylosis and degenerative disc disease of the cervical spine as detailed level by level above. Narrative 10/25/2024 11:35 AM GEOPHYSICS PROFESSOR EXAM DESCRIPTION: MRI BRAIN W/WO CONTRAST; MRI C-SPINE W/WO CONTRAST REASON FOR STUDY: Re-evaluation of multiple sclerosis diagnosed 2014. No current patient complaints. History of type 2 diabetes; no cancer history. No intracranial, vascular, spinal, or ear surgeries. History of unspecified eye surgery. TECHNIQUE: MRI BRAIN: Multiplanar imaging includes noncontrast T1, T2, FLAIR, diffusion with ADC map and post contrast T1 sequences. Additional sequence(s) sensitive to blood products. MRI CERVICAL SPINE: Sagittal and axial imaging of the cervical spine includes T1, T2, STIR and gradient echo sequences. Post contrast T1-weighted images. Images saved to PACS. CONTRAST TYPE/DOSE: 20 mL ProHance injected via right AC without reported incident. COMPARISON: MRI brain/cervical spine without contrast 06/08/2023; MRI brain without and with contrast 04/12/2023 and 05/18/2023; MRI cervical spine without and with contrast 11/01/2017 FINDINGS: MRI BRAIN: CEREBRUM: As below. No acute intra-axial hemorrhage. No edema, mass effect, midline shift, or herniation. No abnormal enhancement to suggest active demyelinating lesions. WHITE MATTER: Redemonstration of overall severe, greater than 30 discrete lesions, burden of bilateral juxtacortical through periventricular, callosal-pericallosal (to include radially-oriented lesions consistent with Reaves's fingers), and pontine, brachii pontine, and cerebellar hemispheres white matter lesions consistent with provided history of multiple sclerosis. Multiple lesions demonstrate a component of T1 hypointensity consistent with black holes. POSTERIOR FOSSA: No acute abnormality. As above. No abnormal enhancement to suggest active demyelinating lesions. DIFFUSION IMAGING: No restricted diffusion to suggest cytotoxic and/or intramyelinic edema as evidence of acute/subacute ischemia/infarct or active demyelinating lesions. EXTRAAXIAL SPACES: No extra-axial fluid collection. No extra-axial mass. No abnormal enhancement. BRAIN VOLUME: Mild cerebral volume loss without predilection, advanced for age. Correlate with clinical context. PITUITARY: Unremarkable. VASCULATURE: No flow disturbance evident. CALVARIUM: Unremarkable. ORBITS: No acute abnormality. Left [place] ocular lens replaced. PARANASAL SINUSES AND MASTOIDS: No significant mucosal thickening and no fluid levels of the paranasal sinuses. Mastoid air cells well aerated. OTHER: No other significant finding. MRI CERVICAL SPINE: ALIGNMENT: Normal. VERTEBRAE: No MR evidence of acute-subacute fracture. Vertebral body heights unchanged. Spondylosis. Marrow signal within normal limits. DISCS: Multilevel variable intervertebral disc desiccation and loss of intervertebral disc height. HARDWARE: None in the cervical spine. CORD: Redemonstration of multifocal variably eccentric short-segment predominant T2/STIR hyperintense cord lesions about the visualized cervicothoracic spine, again maximal at the level of the odontoid process through base of the C2 vertebral body (with redemonstration of associated thinning of the cervical cord at the site of this lesion) consistent with provided history of multiple sclerosis. No abnormal enhancement to suggest active demyelinating lesions. INDIVIDUAL DISC LEVELS: C1-C2: No spinal canal stenosis. C2-C3: No diffuse disc bulge or focal herniation. No spinal canal stenosis. No neural foraminal stenosis. C3-C4: No significant diffuse disc bulge or focal herniation. No spinal canal stenosis. No neural foraminal stenosis. C4-C5: No significant diffuse disc bulge or focal herniation. Bilateral hypertrophic facet arthropathy. Bilateral uncovertebral joint disease. No spinal canal stenosis. No significant neural foraminal stenosis. C5-C6: Posterior disc osteophyte complex indenting the ventral thecal sac. Bilateral hypertrophic facet arthropathy. Bilateral uncovertebral joint disease. Mild spinal canal stenosis. Bilateral neural foraminal stenosis. C6-C7: Tiny shallow central disc protrusion slightly indenting the ventral thecal sac. Bilateral facet arthropathy. No spinal canal stenosis. No neural foraminal stenosis. C7-T1: No diffuse disc bulge or focal herniation. Bilateral facet arthropathy. No spinal canal stenosis. No neural foraminal stenosis. UPPER THORACIC: Incompletely imaged. No significant spinal stenosis or foraminal stenosis. OTHER: No other significant finding. THIS IS AN ELECTRONICALLY VERIFIED FINAL REPORT 10/25/2024 11:32 AM - Electronically signed by Mika Torres M.D. SHAKA: SHAKA Report ID: [id number] Reading Location: [id number] Procedure Note Mika Torres MD - 10/25/2024 EXAM DESCRIPTION: MRI BRAIN W/WO CONTRAST; MRI C-SPINE W/WO CONTRAST REASON FOR STUDY: Re-evaluation of multiple sclerosis diagnosed 2014. No current patient complaints. History of type 2 diabetes; no cancer history. No intracranial, vascular, spinal, or ear surgeries. History of unspecified eye surgery. TECHNIQUE: MRI BRAIN: Multiplanar imaging includes noncontrast T1, T2, FLAIR, diffusion with ADC map and post contrast T1 sequences. Additional sequence(s) sensitive to blood products. MRI CERVICAL SPINE: Sagittal and axial imaging of the cervical spine includes T1, T2, STIR and gradient echo sequences. Post contrast T1-weighted images. Images saved to PACS. CONTRAST TYPE/DOSE: 20 mL ProHance injected via right AC without reported incident. COMPARISON: MRI brain/cervical spine without contrast 06/08/2023; MRI brain without and with contrast 04/12/2023 and 05/18/2023; MRI cervical spine without and with contrast 11/01/2017 FINDINGS: MRI BRAIN: CEREBRUM: As below. No acute intra-axial hemorrhage. No edema, mass effect, midline shift, or herniation. No abnormal enhancement to suggest active demyelinating lesions. WHITE MATTER: Redemonstration of overall severe, greater than 30 discrete lesions, burden of bilateral juxtacortical through periventricular, callosal-pericallosal (to include radially-oriented lesions consistent with Reaves's fingers), and pontine, brachii pontine, and cerebellar hemispheres white matter lesions consistent with provided history of multiple sclerosis. Multiple lesions demonstrate a component of T1 hypointensity consistent with black holes. POSTERIOR FOSSA: No acute abnormality. As above. No abnormal enhancement to suggest active demyelinating lesions. DIFFUSION IMAGING: No restricted diffusion to suggest cytotoxic and/or intramyelinic edema as evidence of acute/subacute ischemia/infarct or active demyelinating lesions. EXTRAAXIAL SPACES: No extra-axial fluid collection. No extra-axial mass. No abnormal enhancement. BRAIN VOLUME: Mild cerebral volume loss without predilection, advanced for age. Correlate with clinical context. PITUITARY: Unremarkable. VASCULATURE: No flow disturbance evident. CALVARIUM: Unremarkable. ORBITS: No acute abnormality. Left [place] ocular lens replaced. PARANASAL SINUSES AND MASTOIDS: No significant mucosal thickening and no fluid levels of the paranasal sinuses. Mastoid air cells well aerated. OTHER: No other significant finding. MRI CERVICAL SPINE: ALIGNMENT: Normal. VERTEBRAE: No MR evidence of acute-subacute fracture. Vertebral body heights unchanged. Spondylosis. Marrow signal within normal limits. DISCS: Multilevel variable intervertebral disc desiccation and loss of intervertebral disc height. HARDWARE: None in the cervical spine. CORD: Redemonstration of multifocal variably eccentric short-segment predominant T2/STIR hyperintense cord lesions about the visualized cervicothoracic spine, again maximal at the level of the odontoid process through base of the C2 vertebral body (with redemonstration of associated thinning of the cervical cord at the site of this lesion) consistent with provided history of multiple sclerosis. No abnormal enhancement to suggest active demyelinating lesions. INDIVIDUAL DISC LEVELS: C1-C2: No spinal canal stenosis. C2-C3: No diffuse disc bulge or focal herniation. No spinal canal stenosis. No neural foraminal stenosis. C3-C4: No significant diffuse disc bulge or focal herniation. No spinal canal stenosis. No neural foraminal stenosis. C4-C5: No significant diffuse disc bulge or focal herniation. Bilateral hypertrophic facet arthropathy. Bilateral uncovertebral joint disease. No spinal canal stenosis. No significant neural foraminal stenosis. C5-C6: Posterior disc osteophyte complex indenting the ventral thecal sac. Bilateral hypertrophic facet arthropathy. Bilateral uncovertebral joint disease. Mild spinal canal stenosis. Bilateral neural foraminal stenosis. C6-C7: Tiny shallow central disc protrusion slightly indenting the ventral thecal sac. Bilateral facet arthropathy. No spinal canal stenosis. No neural foraminal stenosis. C7-T1: No diffuse disc bulge or focal herniation. Bilateral facet arthropathy. No spinal canal stenosis. No neural foraminal stenosis. UPPER THORACIC: Incompletely imaged. No significant spinal stenosis or foraminal stenosis. OTHER: No other significant finding. THIS IS AN ELECTRONICALLY VERIFIED FINAL REPORT 10/25/2024 11:32 AM - Electronically signed by Mika Torres M.D. SHAKA: SHAKA Report ID: [id number] Reading Location: [place] [id number] IMPRESSION: 1. No acute intracranial process with chronic findings as above to include stable appearance of supratentorial and infratentorial white matter disease consistent with provided history of multiple sclerosis. 2. Redemonstration of multifocal cord lesions about the visualized cervicothoracic spine, again maximal at the level of the odontoid process, consistent with provided history of multiple sclerosis. 3. Otherwise, redemonstration of spondylosis and degenerative disc disease of the cervical spine as detailed level by level above. us Fernando Beyer MD [facility] [place] MR ORDERABLES Final Resu lt * UR MICROALBUMIN/CREATININE RATIO RANDOM (10/23/2024 8:39 AM GEOPHYSICS PROFESSOR) RAN UR MICROALBUMIN <0.50 mg/dL 10/23/2024 9:44 AM GEOPHYSICS PROFESSOR [facility] Comment:No reference range h as been established. Consider Clinical Correlation. CREATININE URINE 47.2 mg/dL 10/23/20 24 9:44 AM GEOPHYSICS PROFESSOR [facility] Comment:No reference range h as been established. Consider Clinical Correlation. ALB/CREAT RATIO 9:44 AM GEOPHYSICS PROFESSOR [facility] Comment:Unable to calculate due to urine microalbumin concentration less than 0.5 mg/dL Urine Non-Phlebotomy Collection / Unknown 10/23/2024 8:39 AM GEOPHYSICS PROFESSOR 10/23/2024 8:38 AM GEOPHYSICS PROFESSOR us Salvador Love MD URINE ORDERABLES Final Result Performing Organization Address City/[facility]/ZIP Co de Phone Number [facility] [address] [place] [address] * POCT Creatinine (10/23/2024 8:39 AM GEOPHYSICS PROFESSOR) CREATININE - POCT 1.0 0.6 - 1.3 mg/dL 10/23/2024 8:41 AM GEOPHYSICS PROFESSOR [facility] Blood 10/23/2024 8:39 AM GEOPHYSICS PROFESSOR 10/23/2024 8:40 AM GEOPHYSICS PROFESSOR None Provider POINT OF CARE TESTING Final Resu lt Performing Organization Address City/[facility]/ZIP Co de Phone Number [facility] [address] [place] [address] * VITAMIN D, 25 HYDROXY TOTAL (10/23/2024 8:18 AM GEOPHYSICS PROFESSOR) VITAMIN D, 25 HYDROX 37.3 ng/mL 10/23/2024 9:56 AM GEOPHYSICS PROFESSOR [facility] Blood Venipuncture / Unknown 10/23/2024 8:18 AM GEOPHYSICS PROFESSOR 10/23/2024 9:04 AM GEOPHYSICS PROFESSOR Narrative [facility] - 10/23/2024 9:56 AM GEOPHYSICS PROFESSOR Published reference ranges for Vitamin D vary depending on time and place and method of testing, and on patient's age, sex, ethnicity and levels of other measured analytes such as parathormone, calcium and phosphorus. The result should be evaluated in conjunction with clinical findings and suspicions. [employer] Clinical Practice Guidelines: Status Vitamin D levels (ng/mL) Deficient <=20 At risk of inadequacy 21-29 Sufficient 30-100 Centers of Disease Control and Prevention Guidelines: Status Vitamin D levels (ng/mL) Deficient <13 At risk of inadequacy 13-19 Sufficient 20-50 Possibly harmful >50 References: [employer], 2010 Dietary reference intakes for calcium and vitamin D. [place]: The National Academies Press. Lucio Moon, Bryant N, Elena ELENA, et al., Evaluation, treatment, and prevention of Vitamin D deficiency: an Endocrinology Clinical Practice Guideline. JCEM 2011 96: 7 6325-9817. Rimma A, Guevara C, Elif Beatty, et al., Vitamin D Status: [place], , [facility] data brief, no. 59, MD Fernando: [employer] [place] [employer] Statistics. 2011. us Fernando Beyer MD CHEMISTRY ORDERABLES Final R esult [facility] [address] [place] [address] * (ABNORMAL) CBC WITH AUTO DIFFERENTIAL (10/23/2024 8:18 AM GEOPHYSICS PROFESSOR) Pathologist [facility] WBC 5.72 4.00 - 12.00 10(3)/mcL 10/23/2024 9:09 AM GEOPHYSICS PROFESSOR [facility] RBC 6.08(H) 4.40 - 5.80 10(6)/mcL 10/23/2024 9:09 AM GEOPHYSICS PROFESSOR [facility] HEMOGLOBIN (HGB) 15.3 13.0 - 16.5 g/dL 10/23/2024 9:09 AM GEOPHYSICS PROFESSOR [facility] HEMATOCRIT (HCT) 49.3 38.0 - 50.0 % 10/23/2024 9:09 AM GEOPHYSICS PROFESSOR [facility] MCV 81.1(L) 82.0 - 96.0 fL 10/23/2024 9:09 AM GEOPHYSICS PROFESSOR [facility] MCH 25.2(L) 26.0 - 32.0 pg 10/23/2024 9:09 AM GEOPHYSICS PROFESSOR [facility] MCHC 31.0 31.0 - 36.0 g/dL 10/23/2024 9:09 AM GEOPHYSICS PROFESSOR [facility] PLATELET COUNT 353 140 - 440 10(3)/[facility] 10/23/2024 9:09 AM [facility] RDW 14.0 11.8 - 15.5 % 10/23/2024 9:09 AM [facility] MPV 9.4 8.0 - 12.6 fL 10/23/2024 9:09 AM [facility] NEUTROPHILS 70.3(H) 40.0 - 68.0 % 10/23/2024 9:09 AM [facility] LYMPHOCYTES 11.5(L) 19.0 - 49.0 % 10/23/2024 9:09 AM [facility] MONOCYTES 16.3(H) 3.0 - 13.0 % 10/23/2024 9:09 AM [facility] EOSINOPHILS 1.6 0.0 - 8.0 % 10/23/2024 9:09 AM [facility] BASOPHILS 0.3 0.0 - 1.0 % 10/23/2024 9:09 AM [facility] ABSOLUTE NEUTROPHILS 4.02 1.40 - 5.30 10(3)/[facility] 10/23/2024 9:09 AM [facility] ABSOLUTE LYMPHOCYTES 0.66(L) 0.90 - 3.30 10(3)/[facility] 10/23/2024 9:09 AM [facility] ABSOLUTE MONOCYTES 0.93(H) 0.10 - 0.90 10(3)/[facility] 10/23/2024 9:09 AM [facility] ABSOLUTE EOSINOPHIL 0.09 0.00 - 0.50 10(3)/[facility] 10/23/2024 9:09 AM [facility] ABSOLUTE BASOPHILS 0.02 0.00 - 0.10 10(3)/[facility] 10/23/2024 9:09 AM [facility] NRBC PER 100 WBC 0 10/23/20 9:09 AM [facility] Blood Venipuncture / Unknown 10/23/2024 8:18 AM GEOPHYSICS PROFESSOR 10/23/2024 9:05 AM GEOPHYSICS PROFESSOR us Fernando Beyer MD HEMATOLOGY ORDERABLES Final Result Performing Organization Address [facility] Co de Phone Number [facility] [address] [place] [address] * HM DILATED EYE EXAM (10/06/2024 12:00 AM GEOPHYSICS PROFESSOR) 10/06/2024 us Provider Scan PROCEDURE/MINOR SURGICAL ORDERAB LES Final Result Performing Organization Address [facility] Co de Phone Number SCAN * (ABNORMAL) Hemoglobin A1C (if indicated) (05/18/2023 12:37 PM CDT) HGB-A1C 7.8(H) 4.0 - 6.0 % 05/18/2023 8:43 PM CDT [facility] Est Average Glucose 177.2 mg/dL 05/18/2023 8:43 PM CDT [facility] Blood Venipuncture / Unknown 05/18/2023 12:37 PM CDT 05/18/2023 1:04 PM CDT Narrative [facility] - 05/18/2023 8:43 PM CDT HEMOGLOBIN A1C: DIABETIC PATIENTS: WELL-CONTROLLED: 6.2 - 7.0 INTERMEDIATE WELL-CONTROLLED: 7.0 - 9.0 POORLY-CONTROLLED: >9.0 us Qi Staton APRN, [employer] TECHNICIAN CHEMISTRY ORDERABLES Final Result Performing Organization Address [facility] Co de Phone Number [facility] [address] [place] [address] * PODIATRY CONSULT (04/24/2021) us Not On File Provider GENERIC SCAN ORDERS CONSULT Final Result from Last 3 Months or Most Recently Relevant to Health Maintenance Insurance [employer] Advance Directives * Full Code (Latest Code Status on File) Date Activated Date Inactivated Comments 05/18/2023 5:10 PM 05/19/2023 9:53 PM CPR-Full Treat ment: FULL ARREST: Attempt Resuscitation/CPR wit intubation and mechanical ventilation. PRE-ARREST: Use entire range of life support measures to stabilize the patient. Care Teams [employer] Software Tester Relationship Specialty Start Date End Date Salvador Love MD [address] [id number] PCP - General Family Medicine 10/17/15 Curry Short DPM [address] [address] Consulting Physician Podiatry 05/08/17 Fernando Beyer MD [address] [place] [address] Consulting Physician Neurology 12/02/22
--- OUTSIDE RECORDS SUMMARY | 2024-12-25 10:53 | XMS_ITS | Referral Summary ---
Author Organization [facility] Address [address] [place] [address] Care Team Providers Care Table Lever Operator Name Role Phone Salvador Love MD Primary Care Provider [phone] Source Comments [facility],non-owned Affiliates and Associated Physician Practices is amultiple site organization consisting of ambulatory clinics and hospital sitesin [place], [place], [place] and [place]. This disclosure is being madepursuant to the Care Everywhere program and may not contain all information available regarding this patient. Last updated 18.[facility] Encounters Date Type Department Care Team Description 12/22/2024 Orders Only [facility] - Orthopedics [address] [facility] [place] [address] Lani Strange MD 12/20/2024 10:29 AM LENS AND FRAMES PRESCRIPTION CLERK - 12/22/2024 2:50 PM LENS AND FRAMES PRESCRIPTION CLERK Hospital Encounter [facility] 2 ORTHO/NEW VIS [address] [place] [phone] Lani Strange MD Orthopedics Discharge Disposition: Home or Self Care 12/20/2024 Travel 12/20/2024 1:55 PM LENS AND FRAMES PRESCRIPTION CLERK Anesthesia Event [facility] PERIOPERATIVE [address] [place] [phone] Tang Flood MD Bauer, Jennifer M, INTERMEDIATE DESIGNER-COMMERCIAL AGENT 12/20/2024 12:44 PM LENS AND FRAMES PRESCRIPTION CLERK - 12/20/2024 3:34 PM LENS AND FRAMES PRESCRIPTION CLERK Surgery [facility] [address] [place] [phone] Lani Strange MD OPEN REDUCTION INTERNAL FIXATION (ORIF) SHOULDER/PROXIMAL HUMERUS - RIGHT 12/10/2024 9:45 AM LENS AND FRAMES PRESCRIPTION CLERK - 12/10/2024 11:59 PM LENS AND FRAMES PRESCRIPTION CLERK Hospital Encounter [facility] LAB OP DRAW STATION [address] [place] [address] Lani Strange MD Discharge Disposition: Home or Self Care 12/10/2024 9:32 AM LENS AND FRAMES PRESCRIPTION CLERK - 12/10/2024 9:44 AM LENS AND FRAMES PRESCRIPTION CLERK Hospital Encounter [facility] DIAGNOSTIC RAD CSM 1L [address] [facility] [place] [address] Lani Strange MD Discharge Disposition: Home or Self Care 12/10/2024 8:47 AM LENS AND FRAMES PRESCRIPTION CLERK - 12/10/2024 9:31 AM LENS AND FRAMES PRESCRIPTION CLERK Hospital Encounter [facility] DIAGNOSTIC RAD CSM [address]L [address] [facility] [place] [address] Lani Strange MD Discharge Disposition: Home or Self Care 12/10/2024 Travel 12/10/2024 9:15 AM LENS AND FRAMES PRESCRIPTION CLERK Office Visit [facility] - Orthopedics [address] [place] [phone] Lani Strange MD Closed fracture of proximal end of right humerus, unspecified fracture morphology, initial encounter (Primary Dx) 12/07/2024 Travel 12/07/2024 7:45 AM LENS AND FRAMES PRESCRIPTION CLERK - 12/07/2024 11:59 PM LENS AND FRAMES PRESCRIPTION CLERK Hospital Encounter [facility] CAT SCAN [address] [place] [address] Lani Strange MD Discharge Disposition: Home or Self Care 12/03/2024 8:53 AM LENS AND FRAMES PRESCRIPTION CLERK - 12/03/2024 11:59 PM LENS AND FRAMES PRESCRIPTION CLERK Hospital Encounter [facility] DIAGNOSTIC RAD CSM [address]L [address] [facility] [place] [address] Lani Strange MD Discharge Disposition: Home or Self Care 12/03/2024 Travel 12/03/2024 9:15 AM LENS AND FRAMES PRESCRIPTION CLERK Office Visit [facility] - Orthopedics [address] [place] [phone] Lani Strange MD Other closed displaced fracture of proximal end of right humerus, initial encounter (Primary Dx) 11/29/2024 Orders Only [facility] - Orthopedics [address] [facility] [place] [address] Lani Strange MD Right shoulder pain, unspecified chronicity from Last 3 Months Allergies Active Allergy Reactions Criticality Noted Date [...] Glucagon (Baqsimi One Pack) 3 MG/DOSE POWD Duchesne 1 spray into the nose as needed [...] hours for 10 days 20 capsule 12/22/2024 5 Active HYDROcodone-acet aminophen (Kincheloe) 5-325 MG tabletIndication s:Other closed displaced fracture of proximal end of right humerus, initial encounter Take 1 (one) tablet by mouth every 6 hours as needed for Pain 12 tablet 12/03/2024 5 Discontinu ed(Clinica l Liz) Active Problems Problem Noted Date Diagnosed Date [...] Comments Blood Pressure 126/74 12/22/2024 8:02 AM LENS AND FRAMES PRESCRIPTION CLERK Pulse 76 12/22/2024 8:02 AM LENS AND FRAMES PRESCRIPTION CLERK Temperature 36.7 C (98 F) 12/22/2024 8:02 AM LENS AND FRAMES PRESCRIPTION CLERK Respiratory Rate 20 12/22/2024 8:02 AM LENS AND FRAMES PRESCRIPTION CLERK Oxygen Saturation 93% 12/22/2024 8:02 AM LENS AND FRAMES PRESCRIPTION CLERK Inhaled Oxygen Concentration - - Weight 106.6 kg (235 lb) 12/20/2024 10:58 AM LENS AND FRAMES PRESCRIPTION CLERK Height 180.3 cm (5' 11 ) 12/20/2024 10:58 AM LENS AND FRAMES PRESCRIPTION CLERK Body Mass Index 32.78 12/20/2024 10:58 AM LENS AND FRAMES PRESCRIPTION CLERK Plan of Treatment Upcoming Encounters Date Type Department Care Team (Late st Contact Info) Description 01/07/2025 1:00 PM LENS AND FRAMES PRESCRIPTION CLERK Office Visit [facility] - Orthopedics [address] [place] [address], [place] [address] Lani Strange MD [address] [place] [phone] Goals Goal Patient Goal Type Associated Problems Recent Progress Patient-Stated? Author Patient will verbalize understanding of symptoms General No Zoey Aguirre RN Medical Devices Implanted Type Area Fisher Reef Net Device Identifier Shelf Expiration Date Model / Serial / Lot Plate Std [id number] 5 Hl Shft Lck Implanted:Qty: 1 on 12/20/2024 by Lani Strange MD at [facility] Right: Humerus [employer] [id number] / / Description:from vendor tray Cancellous Chips Implanted:Qty: 1 on 12/20/2024 by Lani Strange MD at [facility] Right: Humerus 03/04/2029 [id number] / [id number] / [id number] Screw 3.5mm 2.9mm 40mm T15 Ft Slf-Tap Implanted:Qty: 2 on 12/20/2024 by Lani Strange MD at [facility] Right: Humerus [employer] [id number] / / Description:from vendor tray Screw 3.5mm 2.9mm 30mm T15 Ft Slf-Tap Implanted:Qty: 3 on 12/20/2024 by Lani Strange MD at [facility] Right: Humerus [employer] 212.111 / / Description:from vendor tray Screw 3.5mm 2.9mm 45mm T15 Ft Slf-Tap Implanted:Qty: 4 on 12/20/2024 by Lani Strange MD at [facility] Right: Humerus [employer] 212.119 / / Description:from vendor tray Screw 3.5mm 2.9mm 55mm Ft Plv Slf-Tap Implanted:Qty: 1 on 12/20/2024 by Lani Strange MD at [facility] Right: Humerus [employer] 212.123 / / Description:from vendor tray Screw 3.5mm 2.9mm 38mm T15 Ft Slf-Tap Implanted:Qty: 1 on 12/20/2024 by Lani Strange MD at [facility] Right: Humerus [employer] 212.116 / / Description:from vendor tray Screw 3.5mm 6mm 32mm 2.5mm Ft Slf-Tap Implanted:Qty: 2 on 12/20/2024 by Lani Strange MD at [facility] Right: Humerus [employer] 204.832 / / Description:from vendor tray Screw 3.5mm 2.9mm 20mm T15 Ft Slf-Tap Implanted:Qty: 1 on 12/20/2024 by Lani Strange MD at [facility] Right: Humerus [employer] 212.106 / / Explanted Type Area Fisher Reef Net Device Identifier Shelf Expiration Date Model / Serial / Lot Screw 3.5mm 6mm 40mm 2.5mm Ft Slf-Tap Explanted:Qty: 1 on 12/20/2024 by Lani Strange MD at [facility] Right: Humerus [employer] 204.840 / / Description:from vendor tray Procedures Procedure Name Priority Date/Time Associated Diagnosis Comments IMAGING/RADIOLOGY/XR AY RESULTS ORDER 12/23/2024 8:25 PM LENS AND FRAMES PRESCRIPTION CLERK CARDIAC RHYTHM STRIP ORDER 12/23/2024 6:35 PM LENS AND FRAMES PRESCRIPTION CLERK PREPARE RBC LEUKOREDUCED UNIT Routine 12/23/2024 1:41 AM LENS AND FRAMES PRESCRIPTION CLERK GLUCOSE - POINT OF CARE Routine 12/22/2024 12:55 PM LENS AND FRAMES PRESCRIPTION CLERK GLUCOSE - POINT OF CARE Routine 12/22/2024 11:54 AM LENS AND FRAMES PRESCRIPTION CLERK GLUCOSE - POINT OF CARE Routine 12/22/2024 7:50 AM LENS AND FRAMES PRESCRIPTION CLERK VITAMIN B12 Add on 12/22/2024 7:42 AM LENS AND FRAMES PRESCRIPTION CLERK TSH REFLEX FREE T4 Add on 12/22/2024 7: 42 AM LENS AND FRAMES PRESCRIPTION CLERK IRON + TRANSFERRIN PANEL Add on 12/22/2024 7:42 AM LENS AND FRAMES PRESCRIPTION CLERK FOLATE Add on 12/22/2024 7:42 AM LENS AND FRAMES PRESCRIPTION CLERK COMPREHENSIVE METABOLIC PANEL PENDING DISCHARGE 12/22/2024 7:42 AM LENS AND FRAMES PRESCRIPTION CLERK HGB HCT PANEL PENDING DISCHARGE 12/22/2024 7:42 AM LENS AND FRAMES PRESCRIPTION CLERK GLUCOSE - POINT OF CARE Routine 12/22/2024 4:06 AM LENS AND FRAMES PRESCRIPTION CLERK GLUCOSE - POINT OF CARE Routine 12/21/2024 10:57 PM LENS AND FRAMES PRESCRIPTION CLERK GLUCOSE - POINT OF CARE Routine 12/21/2024 8:17 PM LENS AND FRAMES PRESCRIPTION CLERK GLUCOSE - POINT OF CARE Routine 12/21/2024 6:53 PM LENS AND FRAMES PRESCRIPTION CLERK GLUCOSE - POINT OF CARE Routine 12/21/2024 11:21 AM LENS AND FRAMES PRESCRIPTION CLERK GLUCOSE - POINT OF CARE Routine 12/21/2024 9:17 AM LENS AND FRAMES PRESCRIPTION CLERK GLUCOSE - POINT OF CARE Routine 12/21/2024 4:43 AM LENS AND FRAMES PRESCRIPTION CLERK HGB HCT PANEL AM Draw 12/21/2024 2:50 AM LENS AND FRAMES PRESCRIPTION CLERK Other closed displaced fracture of proximal end of right humerus with routine healing, subsequent encounter BASIC METABOLIC PANEL (CALCIUM TOTAL) AM Draw 12/21/2024 2:50 AM LENS AND FRAMES PRESCRIPTION CLERK Other closed displaced fracture of proximal end of right humerus with routine healing, subsequent encounter GLUCOSE - POINT OF CARE Routine 12/21/2024 12:44 AM LENS AND FRAMES PRESCRIPTION CLERK GLUCOSE - POINT OF CARE Routine 12/20/2024 10:12 PM LENS AND FRAMES PRESCRIPTION CLERK GLUCOSE - POINT OF CARE Routine 12/20/2024 9:28 PM LENS AND FRAMES PRESCRIPTION CLERK XR SHOULDER RIGHT 2VW OR MORE STAT 12/20/2024 9:06 PM LENS AND FRAMES PRESCRIPTION CLERK Other closed displaced fracture of proximal end of right humerus with routine healing, subsequent encounter GLUCOSE - POINT OF CARE Routine 12/20/2024 8:28 PM LENS AND FRAMES PRESCRIPTION CLERK FL ALISSON SURGERY Routine 12/20/2024 8:13 PM LENS AND FRAMES PRESCRIPTION CLERK Pain TRANSFUSE RED BLOOD CELL LEUKOREDUCED UNIT(S) Routine 12/20/2024 6:28 PM LENS AND FRAMES PRESCRIPTION CLERK ENDOTRACHEAL TUBE NOTE Routine 12/20/2024 2:18 PM LENS AND FRAMES PRESCRIPTION CLERK PERIPHERAL BLOCK Routine 12/20/2024 1:43 PM LENS AND FRAMES PRESCRIPTION CLERK IN OPEN TX PROXIMAL HUMERAL FRACTURE 12/20/2024 1:28 PM LENS AND FRAMES PRESCRIPTION CLERK Diagnosis unknown Special Needs NEEDS BEACH CHAIR, SPIDER, SYNTHES REP(YOSSI [phone]) NOTIFIED PER OFFICE(LUIS) 12/10 TM--DATE AND TIME CHANGE--REP. NOTIFIED PER OFFICE (LUIS)--12/10 KW -REP EMAILED 12/16 WC BLOOD TYPE VERIFICATION Routine 12/20/2024 11:21 AM LENS AND FRAMES PRESCRIPTION CLERK COMPREHENSIVE METABOLIC PANEL AM Draw 12/20/2024 11:20 AM LENS AND FRAMES PRESCRIPTION CLERK Closed fracture of proximal end of right humerus, unspecified fracture morphology, initial encounter TYPE + SCREEN PANEL STAT 12/20/2024 1 1:17 AM LENS AND FRAMES PRESCRIPTION CLERK GLUCOSE - POINT OF CARE Routine 12/20/2024 11:13 AM LENS AND FRAMES PRESCRIPTION CLERK C-REACTIVE PROTEIN Routine 12/10/2024 10 :23 AM LENS AND FRAMES PRESCRIPTION CLERK Closed fracture of proximal end of right humerus, unspecified fracture morphology, initial encounter CBC W AUTO DIFFERENTIAL Routine 12/10/2024 10:23 AM LENS AND FRAMES PRESCRIPTION CLERK Closed fracture of proximal end of right humerus, unspecified fracture morphology, initial encounter XR CHEST 2VW Routine 12/10/2024 9:48 AM LENS AND FRAMES PRESCRIPTION CLERK Closed fracture of proximal end of right humerus, unspecified fracture morphology, initial encounter XR SHOULDER RIGHT 2VW OR MORE Routine 12/10/2024 8:58 AM LENS AND FRAMES PRESCRIPTION CLERK Right shoulder pain, unspecified chronicity CT SHOULDER RIGHT WO CONTRAST Routine 12/07/2024 7:58 AM LENS AND FRAMES PRESCRIPTION CLERK Other closed displaced fracture of proximal end of right humerus, initial encounter XR SHOULDER RIGHT 2VW OR MORE Routine 12/03/2024 9:01 AM LENS AND FRAMES PRESCRIPTION CLERK Right shoulder pain, unspecified chronicity from Last 3 Months Results * IMAGING RADIOLOGY XRAY RESULTS ORDER (12/23/2024 8:25 PM LENS AND FRAMES PRESCRIPTION CLERK) Anatomical Region Laterality Modality Other Narrative 12/23/2024 8:25 PM LENS AND FRAMES PRESCRIPTION CLERK Ordered by an unspecified provider. Scanned Document IMAGING * CARDIAC RHYTHM STRIP ORDER (12/23/2024 6:35 PM LENS AND FRAMES PRESCRIPTION CLERK) Narrative 12/23/2024 6:35 PM LENS AND FRAMES PRESCRIPTION CLERK Ordered by an unspecified provider. Scanned Document CARDIAC SERVICES ORD ERABLES * PREPARE (CROSSMATCH) RBC UNIT(S), 2 Units (12/23/2024 1:41 AM LENS AND FRAMES PRESCRIPTION CLERK) Unit Description AS1 LR PRBC [facility] B[facility]OD [facility] LAB Unit ABO O [facility] Unit Rh POS [facility] Product Number R02 [facility] Unit Donor # [id number] [facility] C BLOOD BANK LAB Unit Status transfused [facility] OOD BANK LAB Product Code [id number] [facility] BL [facility] Blood Type Barcode 5100 [facility] Expiration Date [facility] BLO[facility] LAB Unit Description AS1 LR PRBC [facility] Unit ABO O [facility] Unit Rh POS [facility] Product Number R02 [facility] Unit Donor # [id number] [facility] C BLOOD BANK LAB Unit Status released [facility] BLO OD BANK LAB Product Code [id number] [facility] BL OOD [facility]ANK LAB Blood Type Barcode 5100 [facility] Expiration Date [facility] BLOOD BANK LAB Blood Bank BLOOD SPECIMEN / Unknown 12/20/2024 11:17 AM LENS AND FRAMES PRESCRIPTION CLERK Lani Strange MD LAB - BLOOD BANK ORD ERABLES [facility] [address] [phone] * (ABNORMAL) GLUCOSE - POINT OF CARE (12/22/2024 12:55 PM LENS AND FRAMES PRESCRIPTION CLERK) Only the most recent of15 resultswithin the time period is included. Glucose WB/POC 289(H) 70 - 99 mg/dL 12/24/2024 9:[address] [facility] Specimen Type Cap Fingerstick 2024 9:[address] [facility] Blood BLOOD SPECIMEN / Unknown 12/22/2024 12:55 PM LENS AND FRAMES PRESCRIPTION CLERK 12/24/2024 9:00 AM LENS AND FRAMES PRESCRIPTION CLERK Lani Strange MD LAB - POINT OF CARE ORDERABLES Performing Organization Address City/[facility]/ZIP Co de Phone Number [facility] [address] [place], [place] [phone] * TSH REFLEX FREE T4 (12/22/2024 7:42 AM LENS AND FRAMES PRESCRIPTION CLERK) Pathologist [facility] TSH 1.896 0.350 - 4.940 uIU/mL 12/22/2024 10:[address] [facility] Blood BLOOD SPECIMEN / Unknown Lab Venipuncture / Unknown 12/22/2024 7:42 AM LENS AND FRAMES PRESCRIPTION CLERK 12/22/2024 8:25 AM LENS AND FRAMES PRESCRIPTION CLERK Qi Fay DO LAB - CHEMISTRY GREY BENNETT Performing Organization Address City/[facility]/ZIP Co de Phone Number [facility] [address] [place] [address] * (ABNORMAL) HGB HCT PANEL (12/22/2024 7:42 AM LENS AND FRAMES PRESCRIPTION CLERK) Only the most recent of2 resultswithin the time period is included. Hemoglobin 10.4(L) 13.3 - 17.5 g/dL 12/22/2024 8:[address] [facility] Hematocrit 33.1(L) 38.7 - 51.1 % 12/22/2024 8:[address] [facility] Blood BLOOD SPECIMEN / Unknown Lab Venipuncture / Unknown 12/22/2024 7:42 AM LENS AND FRAMES PRESCRIPTION CLERK 12/22/2024 8:25 AM LENS AND FRAMES PRESCRIPTION CLERK Lani Strange MD LAB - HEMATOLOGY ORD ERABLES [facility] [address] [place], [place] [phone] * (ABNORMAL) COMPREHENSIVE METABOLIC PANEL (12/22/2024 7:42 AM [facility]) Only the most recent of2 resultswithin the time period is included. Glucose 319(H) 70 - 99 mg/dL 12/22/2024 8:[address] [facility] Sodium 130(L) 136 - 145 mmol/L 12/22/2024 8:[address] [facility] Potassium 4.9 3.5 - 5.1 mmol/L 12/22/2024 8:[address] [facility] Chloride 99 98 - 107 mmol/L 12/22/2024 8:[address] [facility] CO2 21(L) 22 - 29 mmol/L 12/22/2024 8:[address] [facility] Calcium 8.6 8.4 - 10.4 mg/dL 12/22/2024 8:[address] [facility] Anion Gap 10 6 - 16 mmol/L 12/22/2024 8:[address] [facility] BUN 22(H) 5.3 - 18.7 mg/dL 12/22/2024 8:[address] [facility] Creatinine 0.85 0.72 - 1.25 mg/dL 12/22/2024 8:[address] [facility] Alkaline Phosphatase 111 40 - 150 U/L 12/22/2024 8:[address] [facility] ALT 91(H) 0 - 55 U/L 12/22/2024 8:[address] [facility] AST 113(H) 5 - 34 U/L 12/22/2024 8:[address] [facility] Protein Total 6.3(L) 6.4 - 8.3 gm/dL 12/22/2024 8:[address] [facility] Albumin 3.2(L) 3.4 - 5.0 gm/dL 12/22/2024 8:[address] [facility] Bilirubin Total 0.7 0.2 - 1.2 mg/dL 12/22/2024 8:[address] [facility] eGFR by CKD-EPI >90 >=90 mL/min/1.7 3 m2 12/22/2024 8:51 AM LENS AND FRAMES PRESCRIPTION CLERK [facility] Blood BLOOD SPECIMEN / Unknown Lab Venipuncture / Unknown 12/22/2024 7:42 AM L[employer] AND FRAMES PRESCRIPTION CLERK 12/22/2024 8:25 AM LENS AND FRAMES PRESCRIPTION CLERK Lani Strange MD LAB - CHEMISTRY ORDE DONALD Performing Organization Address [facility]/ZIP Co de Phone Number [facility] [address] [place] [phone] * FOLATE (12/22/2024 7:42 AM LENS AND FRAMES PRESCRIPTION CLERK) Folate 14.6 7.0 - 31.4 ng/mL 12/22/2024 10:14 AM LENS AND FRAMES PRESCRIPTION CLERK [facility] Blood BLOOD SPECIMEN / Unknown Lab Venipuncture / Unknown 12/22/2024 7:42 AM LENS AND FRAMES PRESCRIPTION CLERK 12/22/2024 8:25 AM LENS AND FRAMES PRESCRIPTION CLERK Qi Fay DO LAB - CHEMISTRY ORDE DONALD Performing Organization Address [facility] Co de Phone Number [facility] [address] [place] [phone] * (ABNORMAL) VITAMIN B12 (12/22/2024 7:42 AM LENS AND FRAMES PRESCRIPTION CLERK) Vitamin B12 1,087(H) 213 - 816 pg/mL 12/22/2024 12:41 PM LENS AND FRAMES PRESCRIPTION CLERK [facility] Blood BLOOD SPECIMEN / Unknown Lab Venipuncture / Unknown 12/22/2024 7:42 AM LENS AND FRAMES PRESCRIPTION CLERK 12/22/2024 8:25 AM LENS AND FRAMES PRESCRIPTION CLERK Qi Fay DO LAB - CHEMISTRY ORDApolinar DONALD Performing Organization Address [facility] Co de Phone Number [facility] [address] [place] [phone] * (ABNORMAL) IRON + TRANSFERRIN PANEL (12/22/2024 7:42 AM LENS AND FRAMES PRESCRIPTION CLERK) Iron 15(L) 50 - 175 ug/dL 12/22/2024 9:41 AM LENS AND FRAMES PRESCRIPTION CLERK [facility] Transferrin 234 174 - 382 mg/dL 12/22/2024 9:[address] [facility] TIBC Calculated 293 240 - 450 ug/dL 12/22/2024 9:[address] [facility] Iron Saturation % 5(L) 20 - 50 % 12/22/2024 9:[address] [facility] Blood BLOOD SPECIMEN / Unknown Lab Venipuncture / Unknown 12/22/2024 7:42 AM L[employer] AND FRAMES PRESCRIPTION CLERK 12/22/2024 8:25 AM [facility] Qi Fay DO LAB - CHEMISTRY GREY BENNETT [facility] [address] [place] [address] * (ABNORMAL) BASIC METABOLIC PANEL (CALCIUM TOTAL) (12/21/2024 2:50 AM [facility]) Glucose 288(H) 70 - 99 mg/dL 12/21/2024 4:[address] [facility] Sodium 132(L) 136 - 145 mmol/L 12/21/2024 4:[address] [facility] Potassium 4.7 3.5 - 5.1 mmol/L 12/21/2024 4:[address] [facility] Chloride 104 98 - 107 mmol/L 12/21/2024 4:[address] [facility] CO2 20(L) 22 - 29 mmol/L 12/21/2024 4:[address] [facility] Calcium 8.1(L) 8.4 - 10.4 mg/dL 12/21/2024 4:[address] [facility] Anion Gap 8 6 - 16 mmol/L 12/21/2024 4:[address] [facility] BUN 27(H) 5.3 - 18.7 mg/dL 12/21/2024 4:[address] [facility] Creatinine 0.94 0.72 - 1.25 mg/dL 12/21/2024 4:[address] [facility] eGFR by CKD-EPI >90 >=90 mL/min/1.7 3 m2 12/21/2024 4:[address] [facility] Blood BLOOD SPECIMEN / Unknown Lab Venipuncture / Unknown 12/21/2024 2:50 AM [employer] AND [employer]AMES PRESCRIPTION CLERK 12/21/2024 3:20 AM L[employer] AND FRAMES PRESCRIPTION CLERK Lani Strange MD LAB - CHEMISTRY IFTIKHARApolinar OSPINAARMANDO [facility] [address] [place] [address] * XR SHOULDER RIGHT 2VW OR MORE (12/20/2024 9:06 PM LENS AND FRAMES PRESCRIPTION CLERK) Only the most recent of3 resultswithin the time period is included. Anatomical Region Laterality Modality Upper Extremity Radiographic Erna ging 12/21/2024 8:35 AM LENS AND FRAMES PRESCRIPTION CLERK Impressions 12/21/2024 8:37 AM LENS AND FRAMES PRESCRIPTION CLERK IMPRESSION: As above. > Interpreting Provider: Salvador Cavazos MD on 12/21/2024 8:37 AM Narrative 12/21/2024 8:37 AM LENS AND FRAMES PRESCRIPTION CLERK PROCEDURE: XR SHOULDER RIGHT 2VW OR MORE [...] * FL Alisson Surgery (12/20/2024 8:13 PM LENS AND FRAMES PRESCRIPTION CLERK) Narrative [facility] - 12/20/2024 8:14 PM LENS AND FRAMES PRESCRIPTION CLERK For details of this study, please see the providers note. Lani Strange MD FLUOROSCOPY ORDERABL ES [facility] [address] [place] [address] * TRANSFUSE RED BLOOD CELL LEUKOREDUCED UNIT(S) (12/20/2024 6:29 PM LENS AND FRAMES PRESCRIPTION CLERK) Tang Flood MD NURSING - BLOOD PROD TRANSFUSION * ETT LINE PERFORMABLE (12/20/2024 2:18 PM LENS AND FRAMES PRESCRIPTION CLERK) Narrative [facility] APRN-CRNA - 12/20/2024 2:18 PM LENS AND FRAMES PRESCRIPTION CLERK [facility]ann St APRN-CRNA 12/20/2024 2:18 PM Endotracheal Tube Placement: Patient Location: OR. Intubation Event Date/Time: 12/20/2024 2:02 PM Procedure: intubation (26054) Procedure Section: Sedation: under general anesthesia. Indications [...] * Peripheral Nerve Block (12/20/2024 1:43 PM LENS AND FRAMES PRESCRIPTION CLERK) Narrative Tang Flood MD - 12/20/2024 1:43 PM LENS AND FRAMES PRESCRIPTION CLERK Tang Flood MD 12/20/2024 1:45 PM Peripheral [...] * BLOOD TYPE VERIFICATION (12/20/2024 11:21 AM LENS AND FRAMES PRESCRIPTION CLERK) ABO Rh O POS 12/20/2024 11:56 AM LENS AND FRAMES PRESCRIPTION CLERK [facility] Blood Bank BLOOD SPECIMEN / Unknown Venipuncture / Unknown 12/20/2024 11:21 AM L[employer] AND FRAMES PRESCRIPTION CLERK 12/20/2024 11:23 AM LENS AND FRAMES PRESCRIPTION CLERK Jerry Bingham MD LAB - BLOOD BANK ORD ERABLES Performing Organization Address City/[facility]/ZIP Co de Phone Number [facility] [address] [place] [phone] [place] [address] * TYPE + SCREEN PANEL (12/20/2024 11:17 AM LENS AND FRAMES PRESCRIPTION CLERK) ABO Rh O POS 12/20/2024 11:56 AM LENS AND FRAMES PRESCRIPTION CLERK [facility] LAB Comment:No history; collect retype. Antibody Screen NEG 11:56 AM LENS AND FRAMES PRESCRIPTION CLERK [facility] BLOOD [facility] Blood Bank BLOOD SPECIMEN / Unknown Venipuncture / Unknown 12/20/2024 11:17 AM LENS AND FRAMES PRESCRIPTION CLERK 12/20/2024 11:17 AM LENS AND FRAMES PRESCRIPTION CLERK Lani Strange MD LAB - BLOOD BANK ORD ERABLES Performing Organization Address [facility]/ZIP Co de Phone Number [facility] [address] [place] [address] * (ABNORMAL) C-REACTIVE PROTEIN (12/10/2024 10:23 AM LENS AND FRAMES PRESCRIPTION CLERK) Pathologist [facility] C-Reactive Protein 0.7(H) <=0.5 mg/dL 12/10/2024 11:25 AM LENS AND FRAMES PRESCRIPTION CLERK [facility] Blood BLOOD SPECIMEN / Unknown Lab Venipuncture / Unknown 12/10/2024 10:23 AM LENS AND FRAMES PRESCRIPTION CLERK 12/10/2024 10:42 AM LENS AND FRAMES PRESCRIPTION CLERK Lani Strange MD LAB - CHEMISTRY [facility] [address] [address], [facility] [phone] * (ABNORMAL) CBC W/ DIFFERENTIAL (12/10/2024 10:23 AM LENS AND FRAMES PRESCRIPTION CLERK) WBC 7.3 4.0 - 10.7 x10E9/L 12/10/2024 10:47 AM [facility] RBC Count 5.21 4.30 - 5.80 x10E12/L 12/10/2024 10:47 AM [facility] Hemoglobin 12.9(L) 13.3 - 17.5 g/dL 12/10/2024 10:47 AM [facility] Hematocrit 40.5 38.7 - 51.1 % 12/10/2024 10:47 AM [facility] MCV 77.7(L) 80.0 - 98.0 fL 12/10/2024 10:47 AM [facility] MCH 24.8(L) 26.7 - 33.6 pg 12/10/2024 10:47 AM [facility] MCHC 31.9 31.7 - 36.3 g/dL 12/10/2024 10:47 AM [facility] RDW-CV 14.6 11.3 - 14.8 % 12/10/2024 10:47 AM [facility] Platelet Count 397 150 - 420 x10E9/L 12/10/2024 10:47 AM [facility] MPV 9.3 7.8 - 11.4 fL 12/10/2024 10:47 AM [facility] Neutrophil % 71.8 41.0 - 74.0 % 12/10/2024 10:47 AM [facility] Lymphocyte % 8.1(L) 17.0 - 47.0 % 12/10/2024 10:47 AM [facility] Monocyte % 18.6(H) 3.0 - 11.0 % 12/10/2024 10:47 AM [facility] Eosinophil % 1.1 0.0 - 7.0 % 12/10/2024 10:47 AM [facility] Basophil % 0.1 0.0 - 1.6 % 12/10/2024 10:47 AM [facility] Immature Granulocytes % 0.3 0.0 - 1.0 % 12/10/2024 10:47 AM [facility] Neutrophil Absolute 5.24 1.60 - 7.50 x10E9/L 12/10/2024 10:47 AM [facility] Lymphocyte Absolute 0.59(L) 1.00 - 4.40 x10E9/L 12/10/2024 10:47 AM [facility] Monocyte Absolute 1.36(H) 0.15 - 1.00 x10E9/L 12/10/2024 10:47 AM [facility] Eosinophil Absolute 0.08 0.00 - 0.60 x10E9/L 12/10/2024 10:47 AM [facility] Basophil Absolute 0.01 0.00 - 0.13 x10E9/L 12/10/2024 10:47 AM [facility] Blood BLOOD SPECIMEN / Unknown Lab Venipuncture / Unknown 12/10/2024 10:23 AM LENS AND FRAMES PRESCRIPTION CLERK 12/10/2024 10:42 AM LENS AND FRAMES PRESCRIPTION CLERK Lani Strange MD LAB - HEMATOLOGY ORD ERABLES [facility] [address] [place] [address], [facility] [phone] * XR Chest 2Vw (12/10/2024 9:48 AM LENS AND FRAMES PRESCRIPTION CLERK) Anatomical Region Laterality Modality Chest Computed Radiogr aphy 12/10/2024 9:41 AM LENS AND FRAMES PRESCRIPTION CLERK Narrative 12/10/2024 9:46 AM LENS AND FRAMES PRESCRIPTION CLERK PROCEDURE: XR CHEST 2VW, DATE/TIME OF EXAM: 12/10/2024 9:32 AM, LOCATION [facility] INDICATION: S42.201A: Closed fracture of proximal [...] report was drafted by Leonora Cantu MD (development vice president) 12/10/2024 9:41 AM. ILaz MD have personally reviewed and interpreted this examination/study. > Interpreting Provider: Laz Villarreal MD on 12/10/2024 9:46 AM Procedure Note Laz Villarreal MD - 12/10/2024 PROCEDURE: XR CHEST 2VW, DATE/TIME OF EXAM: 12/10/2024 9:32 AM, LOCATION [facility] INDICATION: S42.201A: Closed fracture of proximal [...] report was drafted by Leonora Cantu MD (development vice president) 12/10/2024 9:41 AM. Laz Oneal MD have personally reviewed and interpreted this examination/study. > Interpreting Provider: Laz Villarreal MD on 12/10/2024 9:46 AM Lani Strange MD DIAGNOSTIC IMAGING O RDERABLES * CT Shoulder Right Wo Contrast (12/07/2024 7:58 AM LENS AND FRAMES PRESCRIPTION CLERK) Anatomical Region Laterality Modality Upper Extremity Computed Tomogra phy 12/07/2024 8:29 AM LENS AND FRAMES PRESCRIPTION CLERK Impressions 12/07/2024 9:21 AM LENS AND FRAMES PRESCRIPTION CLERK IMPRESSION: Comminuted moderately displaced, angulated fracture of the humeral neck. This study was dictated by professor of radiology Tyler Krishna MD and reviewed and edited by the attending. Alen Oneal MD have personally reviewed and interpreted this examination/study. > Interpreting Provider: Alen Martinez MD on 12/07/2024 9:21 AM Narrative 12/07/2024 9:21 AM LENS AND FRAMES PRESCRIPTION CLERK PROCEDURE: CT SHOULDER RIGHT WO CONTRAST DATE/TIME [...] humeral neck. This study was dictated by professor of radiology Tyler Krishna MD and reviewed and [...] 10:06 PM 12/22/2024 3:58 PM Care Teams Table Lever Operator Relationship Specialty Start Date End Date Salvador Love MD [address] [address] PCP - General Family Medicine 12/20/24
--- OUTSIDE RECORDS SUMMARY | 2024-12-25 10:53 | XMS_ITS | Encounter Summary ---
Author Organization [facility] HealthCare Address [address] [place] [address] Phone Care Team Providers Care Armored Vehicle Officer Name Role Phone Salvador Love MD Primary Care Provider Curry Short DPRed Unavailable [phone] Fernando Beyer MD Unavailable [phone] Encounter Details Date Type Department Care Team (Late st Contact Info) Description 10/26/2024 Results Follow-Up [facility] - Neurology [facility] [address] [place] [phone] Lizabeth Gaxiola, RN [place] Social History Tobacco Use Types Packs/Day Years Used Date Smoking Tobacco: Former Cigarettes 1 10 0 11/17/1999 - 11/17/2009 Smokeless Tobacco: Never Alcohol Use Standard Drinks/Week Comments Yes 0 (1 standard drink = 0.6 oz pur e alcohol) weekly [facility] Utilities Answer Date Recorded In the past 12 months has e electric, gas, oil, or water company threatened to shut off services in your home? No 06/23/2024 Social Connection and Isolat ion Panel [NHANES] Answer Date Recorded In a typical week, how many times do you talk on the phone with family, friends, or neighbors? Once a week 06/23/2024 How often do you get togethe r with friends or relatives? Once a week 06/23/2024 How often do you attend chur or pentecostal services? More than 4 times per year 06/23/2024 Do you belong to any clubs o r organizations such as druze groups, unions, fraternal or athletic groups, or school groups? No 06/23/2024 How often do you attend meet ings of the clubs or organizations you belong to? 1 to 4 times per year 06/23/2024 Are you , , di vorced, , never , or living with a partner? 06/23/2024 AUDIT-C Answer Date Recorded Q1: How often do you have a drink containing alc ohol? 2-4 times a month 06/23/2024 Q2: How many drinks containi ng alcohol do you have on a typical day when you are drinking? 3 or 4 06/23/2024 Q3: How often do you have si x or more drinks on one occasion? Less than monthly 06/23/2024 Overall Financial Resource Strain (CARDIA) Answe r Date Recorded How hard is it for you to pa y for the very basics like food, housing, medical care, and heating? Not very hard 06/23/2024 PHQ-2 Answer Date Recorded Total Score - Questions 1-9 0 06/2024 [facility] - Occupational Stress Questionnaire Answer Date Recorded Do you feel stress - tense, restless, nervous, or anxious, or unable to sleep at night because your mind is troubled all the time - these days? Only a little 06/23/2024 Exercise Vital Sign Answer Date Recorde d On average, how many days pe r week do you engage in moderate to strenuous exercise (like a brisk walk)? 5 days 06/23/2024 On average, how many minutes do you engage in exercise at this level? 30 min 06/23/2024 Hunger Vital Sign Answer Date Recorded Within the past 12 months, y ou worried that your food would run out before you got the money to buy more. Never true 06/23/20 24 Within the past 12 months, t he food you bought just didn't last and you didn't have money to get more. Never true 06/23/2024 PRAPARE - Transportation Answer Date Re corded In the past 12 months, has l ack of transportation kept you from medical appointments or from getting medications? No 05/2024 In the past 12 months, has l ack of transportation kept you from meetings, work, or from getting things needed for daily living? No 06/23/2024 Housing Stability Vital Sign Answer Ky e [...] place to sleep or slept in a prison (including now)? No 12/19/2023 Housing Stability Vital Sign Answer [place] e Recorded In the last 12 months, was t here a time when you were not able to pay the mortgage or rent on time? No 06/23/2024 Number of Times Moved in the Last Year Not on fi le 06/23/2024 At any time in the past [address] [facility], were you homeless or living in a prison (including now)? No 06/23/2024 Education Answer Date Recorded What is the highest level of school you have completed or the highest degree you have received? Master's degree (e.g., MA, MS, Winsome, MEd, IN SCHO[employer] SUSPENSION COORDINATOR, [employer]) 05/26/2023 Sexually Active Control Partners Comments Yes Female Sex and Gender Information Value Date Recorded Sex Assigned at Not on file Legal Sex Male 3:09 AM THRESHER BROOMCORN Gender Identity Not on file Sexual Orientation Not on file documented as of this encounter Miscellaneous Notes * Telephone Encounter - Lizabeth Gaxiola RN - 10/26/2024 9:23 AM CST Patient voiced understanding of result. SHER BROOMCORN documented in this encounter Plan of Treatment Upcoming Encounters Date Type Department Care Team (Late st Contact Info) Description 12/28/2024 6:00 PM THRESHER BROOMCORN Office Visit [facility] [address] [place] [address] Salvador Love MD #[address] [address] documented as of this encounter Visit Diagnoses Not on filedocumented in this encounter Additional Health Concerns Assessment Noted Time PHQ-9 Depression Total Score: 0 06/24/20 24 7:31 AM CDT documented as of this encounter Care Teams Armored Vehicle Officer Relationship Specialty Start Date End Date Salvador Love MD #[address] [address] PCP - General Family Medicine 10/17/15 Curry Short DPM #[address] [address] Consulting Physician Podiatry 05/08/17 Fernando Beyer MD [address] [place] [address] Consulting Physician Neurology 12/02/22 documented as of this encounter
--- OUTSIDE RECORDS SUMMARY | 2024-12-25 10:54 | XMS_ITS ---
Author Organization [facility] Address [address] [place], [place] [id number] Care Team Providers Care Airport Representative Name Role Phone SALVATORE CLARK Unavailable [phone] Salvador Love Unavailable Unavailable REASON FOR VISIT *General care Encounters Encounter Location Date Provider Diagnosis [facility] [place] [address] [place], [place] [id number] 10/21/2024 SALVATORE CLARK Plan Of Treatment No Information Progress Notes * SALVADOR KHANNA PDOB:[birth year] (44 yo M)Acc No.[id number]:10/21/2024 Patient: Tanvir PRATTSALVADOR Rock Provider: Apolinar Clark DPM :1980 A ge:44 Y S ex:Male Date:10/21/2024 Address:[address] [place], [place] [address] [facility] Subjective: * Chief Complaints: * 1 . *General care. * Medical History: Objective: * Vitals: Assessment: Plan: * Treatment: * Billing Information: * Visit Code: * Procedure Codes: * Electronic signature of SALVATORE CLARK DPM on 12/25/2024 at 10:53 AM CLINICAL DATA MANAGER Sign off status: Pending * Provider: Apolinar Clark DPM Date: 1 12/22/2023 Generated for Printi ng/Faxing/eTransmitting on: 0 12/25/2024 10:53 AM CLINICAL DATA MANAGER
--- NOTE | 2024-12-25 11:12 | ED.GENADULT ---
HPI - General Adult General Chief complaint: Unspecified Stated complaint: constipation, said was taking pain meds Time Seen by Provider: 12/25/24 11:02 History of Present Illness HPI narrative: 44-year-old male status post shoulder surgery presenting to the emergency depart for constipation. He takes 5 mg of oxycodone Q 6 and has never been on opiate medications before. He states he has been constipated for last few days despite trying magnesium citrate and a dose of MiraLax as well as docusate. He states that he is passing gas freely but still feels like he is not able to pass a bowel movement. Denies any history of hemorrhoids or having any rectal pain. No bleeding. Endorses mild bloating but no abdominal distention or discomfort. No nausea vomiting he is able tolerate p.o. intake. Has not tried any enema or other interventions besides medication. Still takes oxycodone at this time for pain control. Doing well since his procedure. Related Data Allergies Allergy/AdvReac Type Severity Reaction Status Date / Time Penicillins Allergy Unknown Unknown Verified 12/25/24 10:56 Review of Systems Review of Systems: As reviewed above in HPI Exam Narrative: GENERAL: [Well-appearing, well-nourished, and in no acute distress.] HEAD: [Normocephalic, atraumatic.] EYES: Left surgical appearing pupil, right pupil 2 mm and reactive ENT: Nares clear, no rhinorrhea or epistaxis. Mucous membranes moist. NECK: Supple. CHEST: [Clear to auscultation. No respiratory distress.] HEART: [Regular rate and rhythm]. No murmur heard. [Normal peripheral pulses.] ABDOMEN: [Soft, nondistended], [nontender], [No rigidity or guarding] EXTREMITIES: Right shoulder in a sling since his procedure, no extremity edema SKIN: Warm, dry, no rash. NEURO: [No focal deficits]. Alert and oriented [x3.] PSYCH: [Normal mood and affect.] Course Vital Signs Vital signs: Vital Signs Temperature 36.6 C 12/25/24 10:53 Pulse Rate 111 H 12/25/24 10:53 Respiratory Rate 20 12/25/24 10:53 Blood Pressure 153/77 H 12/25/24 10:53 Pulse Oximetry 98 12/25/24 10:53 Oxygen Delivery Room Air 12/25/24 10:53 Temperature 36.6 C 12/25/24 10:53 Pulse Rate 111 H 12/25/24 10:53 Respiratory Rate 20 12/25/24 10:53 Blood Pressure 153/77 H 12/25/24 10:53 Pulse Oximetry 98 12/25/24 10:53 Oxygen Delivery Room Air 12/25/24 10:53 Medical Decision Making MDM Narrative Medical decision making narrative: 44-year-old male presenting for constipation. He is status post shoulder surgery for a comminuted fracture of the proximal humerus. He has been doing well postoperatively but did taking oxycodone 5 mg q.6 around the clock. Now he is constipated for last few days. Still passing gas informing freely but not have any bowel movements or hua. Tried MiraLax and magnesium citrate, single dose of doxy patricio without any relief. No abdominal distention or tenderness on examination. He is not particularly uncomfortable appearing and is tolerating p.o. intake. No fever or hypoxia. Will try several therapies including magnesium citrate, milk of magnesia suppository, fleets enema and re-evaluate. After the interventions patient had a large bowel movement and was feeling significantly improved. No longer feeling constipated. We discussed next steps including maintenance MiraLax medications and as needed magnesium citrate. He will continue taking his oxycodone as he needs for his pain and states and stable for discharge home at this time. Family felt comfortable with this plan. Medical Records Medical records reviewed: Yes I reviewed the external patient's medical records. Vital Signs Vital Signs: Vital Signs Temperature 36.6 C 12/25/24 10:53 Pulse Rate 111 H 12/25/24 10:53 Respiratory Rate 12/25/24 10:53 Blood Pressure 153/77 H 12/25/24 10:53 Pulse Oximetry 98 12/25/24 10:53 Oxygen Delivery Room Air 12/25/24 10:53 Temperature 36.6 C 12/25/24 10:53 Pulse Rate 111 H 12/25/24 10:53 Respiratory Rate 20 12/25/24 10:53 Blood Pressure 153/77 H 12/25/24 10:53 Pulse Oximetry 98 12/25/24 10:53 Oxygen Delivery Room Air 12/25/24 10:53 Discharge Plan Discharge Clinical Impression: Acute constipation Patient Disposition: Home, Self-Care Condition: Stable Instructions: Antibiotic Form, Polyethylene Glycol 3350 (By mouth), Constipation (DC), High Fiber Diet (ED) Additional Instructions: As long as you are continuing taking oxycodone medications I would recommend being on a regimen including MiraLax 17 g diluted in 8 oz of fluid taken twice daily. You can also take additional stool softeners or magnesium citrate as needed. Follow-up with regular doctor. Return with any new concerns. Patient Language: Persian Prescriptions: No Action oxycodone 5 mg tablet 5 mg PO Q6H PRN (Reason: pain) Qty: 20 0RF cyclobenzaprine 5 mg tablet 5 mg PO TID PRN (Reason: muscle spasm) Qty: 15 0RF Follow-up/Referrals: UNKNOWN,DOCTOR [Non-Staff] - Time of Disposition: 12:17
--- OUTSIDE RECORDS SUMMARY | 2024-12-25 11:31 | XMS_ITS | Encounter Summary ---
Author Organization [facility] Address [address] [place] [address] Phone Care Team Providers Care Team Driver Name Role Phone Salvador Love MD Primary Care Provider Curry Short DPRed Unavailable [phone] Fernando Beyer MD Unavailable [phone] Encounter Details Date Type Department Care Team (Late st Contact Info) Description 10/26/2024 Results Follow-Up [facility] - Neurology [facility] [address] [place] [phone] Lizabeth Gaxiola, RN [place] Social History Tobacco Use Types Packs/Day Years Used Date Smoking Tobacco: Former Cigarettes 1 10 0 11/17/1999 - 11/17/2009 Smokeless Tobacco: Never Alcohol Use Standard Drinks/Week Comments Yes 0 (1 standard drink = 0.6 oz pur e alcohol) weekly [facility] Utilities Answer Date Recorded In the past [...] How often do you attend chur or gnosticist services? More than 4 times per year 06/23/2024 Do you belong to any clubs o r organizations such as zoroastrianism groups, unions, fraternal or athletic groups, or [...] Total Score - Questions 1-9 0 06/2024 [facility] of Occupat ional Health - Occupational Stress [...] place to sleep or slept in a senior care (including now)? No 12/19/2023 Housing Stability Vital Sign Answer [place] e Recorded In the last 12 months, was t here a time when you were not able to pay the mortgage or rent on time? No 06/23/2024 Number of Times Moved in the Last Year Not on fi le 06/23/2024 At any time in the past [address] [facility], were you homeless or living in a senior care (including now)? No 06/23/2024 Education Answer Date Recorded What is the highest level of school you have completed or the highest degree you have received? Master's degree (e.g., MA, MS, Winsome, MEd, PECAN GATHERER, [place]) 05/26/2023 Sexually Active Control Partners Comments Yes Female Sex and Gender Information Value Date Recorded Sex Assigned at Not on file Legal Sex Male 3:09 AM NITROCELLULOSE MAKER Gender Identity Not on file Sexual Orientation Not on file documented as of this encounter Miscellaneous Notes * Telephone Encounter - Lizabeth Gaxiola RN - 10/26/2024 9:23 AM CST Patient voiced understanding of result. OCELLULOSE MAKER documented in this encounter Plan of Treatment Upcoming Encounters Date Type Department Care Team (Late st Contact Info) Description 12/28/2024 6:00 PM NITROCELLULOSE MAKER Office Visit [facility] [address] [place] [address] Salvador Love MD #[address] [address] documented as of this encounter Visit Diagnoses Not on filedocumented in this encounter Additional Health Concerns Assessment Noted Time PHQ-9 Depression Total Score: 0 06/24/20 24 7:31 AM CDT documented as of this encounter Care Teams Team Driver Relationship Specialty Start Date End Date Salvador Love MD #[address] [address] PCP - General Family Medicine 10/17/15 Curry Short DPM #[address] [address] Consulting Physician Podiatry 05/08/17 Fernando Beyer MD #2 [place] [address] Consulting Physician Neurology 12/02/22 documented as of this encounter
--- OUTSIDE RECORDS SUMMARY | 2024-12-25 11:31 | XMS_ITS | Clinical Summary ---
Author Organization [facility] Address [address], [facility] [address] [place] [address] Phone Care Team Providers Care Rand Butting Machine Operator Name Role Phone Salvador Love MD Primary Care Provider [phone] Curry Short DPM Unavailable [phone] Fernando Beyer MD Unavailable [phone] Allergies Active Allergy Reactions Criticality Noted Date [...] insurance company as well as the drug plant safety engineer. Given his initial MRI showing a very aggressive form of MS, we do believe he will be irreparable harmed of treatment is interrupted. Discussed continuing tysabri for another year and then may reconsider other treatment options. Adhesive capsulitis of shoulder Muscle spasm Encounters Date Type Department Care Team Description 12/13/2024 1:30 PM MANUAL EQUIPMENT MECHANIC Office Visit [facility] [address] [place] [address] Salvador Love MD Preop cardiovascular exam (Primary Dx); Acute pain of right shoulder; Closed fracture of head of right humerus, initial encounter Discharge Disposition: Discharged to home or Selfcare 12/13/2024 Documentation Only [facility] [address] [place] [address] Salvador Love MD 12/11/2024 Travel 10/26/2024 Results Follow-Up [facility] [address]2 [facility] [place] [address] Lizabeth Gaxiola RN 10/25/2024 Refill [facility] [address] [facility] [place] [address] Fernando Beyer MD Medication Refill 10/23/2024 7:56 AM MANUAL EQUIPMENT MECHANIC - 10/23/2024 11:59 PM MANUAL EQUIPMENT MECHANIC [facility] 1 [facility] [place] [address] Fernando Beyer MD Discharge Disposition: Discharged to home or Selfcare 10/23/2024 7:56 AM MANUAL EQUIPMENT MECHANIC - 10/23/2024 11:59 PM MANUAL EQUIPMENT MECHANIC [facility] 1 [facility] [place] [address] Fernando Beyer MD Discharge Disposition: Discharged to [...] Valent 0 Pneumococcal conjugate PCV20 , polysaccharide [id number] conjugate, adjuvant, PF 11/07/2023 TDAP Vaccine 06/23/2013 [...] oz pur e alcohol) weekly [facility] Utilities Answer Date Recorded In the [...] often do you attend chur ch or shinto services? More than 4 times per year 12/11/2024 Do you belong to any clubs o r organizations such as anabaptism groups, unions, fraternal or athletic groups, or [...] Score - Questions 1-9 0 08/0 06/2024 [facility] [place] [facility] - Occupational Stress [...] any time in the past 12 m [facility], were you homeless or living in a senior care (including now)? No 12/11/2024 Education Answer Date Recorded What is the highest level of school you have completed or the highest degree you have received? Master's degree (e.g., MA, MS, Winsome, MEd, RESPIRATORY THERAPY TECHNICIAN, [place]) 05/26/2023 Sexually Active Control Partners Comments Yes Female Sex and Gender Information Value Date Recorded Sex Assigned at Not on file Legal Sex Male 3:09 AM MANUAL EQUIPMENT MECHANIC Gender Identity Not on file Sexual Orientation Not on file Last Filed Vital Signs Vital Sign Reading Time Taken Comments Blood Pressure 130/78 12/13/2024 1:22 PM MANUAL EQUIPMENT MECHANIC Pulse 103 12/13/2024 1:22 PM MANUAL EQUIPMENT MECHANIC Temperature 36.1 C (96.9 F) 12/13/2024 1:22 PM MANUAL EQUIPMENT MECHANIC Respiratory Rate 16 12/13/2024 1:22 PM MANUAL EQUIPMENT MECHANIC Oxygen Saturation 97% 12/13/2024 1:22 PM MANUAL EQUIPMENT MECHANIC Inhaled Oxygen Concentration - - Weight 108.4 kg (239 lb) 12/13/2024 1:22 PM MANUAL EQUIPMENT MECHANIC Height 180.3 cm (5' 11 ) 12/13/2024 1:22 PM MANUAL EQUIPMENT MECHANIC Body Mass Index 33.33 12/13/2024 1:22 PM MANUAL EQUIPMENT MECHANIC Plan of Treatment Upcoming Encounters Date Type Department Care Team (Late st Contact Info) Description 12/28/2024 6:00 PM MANUAL EQUIPMENT MECHANIC Office Visit [facility] [place] [address] [place] [address] Salvador Love MD [address] [address] Health Maintenance Due Date Last Done Comments [...] BRAIN W/WO CONTRAST Routine 10/23/2024 10:50 AM MANUAL EQUIPMENT MECHANIC Relapsing remitting multiple sclerosis (HCC) MRI C-SPINE W/WO CONTRAST Routine 10/23/2024 10:41 AM MANUAL EQUIPMENT MECHANIC Relapsing remitting multiple sclerosis (HCC) POCT CREATININE Routine 10/23/2024 8:39 AM MANUAL EQUIPMENT MECHANIC UR MICROALBUMIN/CREATI NINE RATIO RANDOM Routine 10/23/2024 8:39 AM MANUAL EQUIPMENT MECHANIC Primary hypertension Pure hypercholesterolemia CBC WITH AUTO DIFFERENTIAL Routine 10/23/2024 8:18 AM MANUAL EQUIPMENT MECHANIC Relapsing remitting multiple sclerosis (HCC) VITAMIN D, 25 HYDROXY TOTAL Routine 10/23/2024 8:18 AM MANUAL EQUIPMENT MECHANIC Relapsing remitting multiple sclerosis (HCC) COMPLETE BLOOD COUNT (CBC) WITH DIFF Routine 10/23/2024 8:18 AM MANUAL EQUIPMENT MECHANIC Relapsing remitting multiple sclerosis (HCC) HM DILATED EYE EXAM 10/06/2024 12:00 AM MANUAL EQUIPMENT MECHANIC HEMOGLOBIN A1C W/ ESTIMATED GLUCOSE Routine 05/18/2023 12:37 PM CDT PODIATRY CONSULT Routine 04/24/2021 from Last 3 Months or Most Recently Relevant to Health Maintenance Results * MRI BRAIN W/WO CONTRAST (10/23/2024 10:50 AM MANUAL EQUIPMENT MECHANIC) Anatomical Region Laterality Modality Head N/A Magnetic Resonan ce 10/25/2024 11:3 2 AM MANUAL EQUIPMENT MECHANIC Impressions 10/25/2024 11:35 AM MANUAL EQUIPMENT MECHANIC IMPRESSION: 1. No acute intracranial process with [...] by level above. Narrative 10/25/2024 11:35 AM MANUAL EQUIPMENT MECHANIC EXAM DESCRIPTION: MRI BRAIN W/WO CONTRAST; MRI [...] CALVARIUM: Unremarkable. ORBITS: No acute abnormality. Left cachil dehe ocular lens replaced. PARANASAL SINUSES AND MASTOIDS: [...] Mika Torres M.D. SHAKA: SHAKA Report ID: [id number] Reading Location: [id number] Procedure Note Mika Torres MD - 10/25/2024 [...] CALVARIUM: Unremarkable. ORBITS: No acute abnormality. Left cachil dehe ocular lens replaced. PARANASAL SINUSES AND MASTOIDS: [...] Mika Torres M.D. SHAKA: SHAKA Report ID: [id number] Reading Location: [place] [address] IMPRESSION: 1. No acute intracranial process with [...] by level above. us Fernando Beyer MD [facility] [place] ORDERABLES Final Resu lt * MRI C-SPINE W/WO CONTRAST (10/23/2024 10:41 AM MANUAL EQUIPMENT MECHANIC) Anatomical Region Laterality Modality Spine, C-spine N/A Magnetic Resonan ce 10/25/2024 11:3 2 AM MANUAL EQUIPMENT MECHANIC Impressions 10/25/2024 11:35 AM MANUAL EQUIPMENT MECHANIC IMPRESSION: 1. No acute intracranial process with [...] by level above. Narrative 10/25/2024 11:35 AM MANUAL EQUIPMENT MECHANIC EXAM DESCRIPTION: MRI BRAIN W/WO CONTRAST; MRI [...] CALVARIUM: Unremarkable. ORBITS: No acute abnormality. Left cachil dehe ocular lens replaced. PARANASAL SINUSES AND MASTOIDS: [...] Mika Torres M.D. SHAKA: SHAKA Report ID: [id number] Reading Location: [id number] Procedure Note Mika Torres MD - 10/25/2024 [...] CALVARIUM: Unremarkable. ORBITS: No acute abnormality. Left cachil dehe ocular lens replaced. PARANASAL SINUSES AND MASTOIDS: [...] Mika Torres M.D. SHAKA: SHAKA Report ID: [id number] Reading Location: [place] [address] IMPRESSION: 1. No acute intracranial process with [...] by level above. us Fernando Beyer MD [facility] [place] ORDERABLES Final Resu lt * UR MICROALBUMIN/CREATININE RATIO RANDOM (10/23/2024 8:39 AM MANUAL EQUIPMENT MECHANIC) RAN UR MICROALBUMIN <0.50 mg/dL 10/23/2024 9:44 AM MANUAL EQUIPMENT MECHANIC [facility] Comment:No reference range h as been established. Consider Clinical Correlation. CREATININE URINE 47.2 mg/dL 10/23/20 24 9:44 AM MANUAL EQUIPMENT MECHANIC [facility] Comment:No reference range h as been established. Consider Clinical Correlation. ALB/CREAT RATIO 9:44 AM MANUAL EQUIPMENT MECHANIC [facility] Comment:Unable to calculate due to urine microalbumin concentration less than 0.5 mg/dL Urine Non-Phlebotomy Collection / Unknown 10/23/2024 8:39 AM MANUAL EQUIPMENT MECHANIC 10/23/2024 8:38 AM MANUAL EQUIPMENT MECHANIC us Salvador Love MD URINE ORDERABLES Final Result Performing Organization Address City/[facility]/ZIP Co de Phone Number [facility] [address] [place] [address] * POCT Creatinine (10/23/2024 8:39 AM MANUAL EQUIPMENT MECHANIC) CREATININE - POCT 1.0 0.6 - 1.3 mg/dL 10/23/2024 8:41 AM MANUAL EQUIPMENT MECHANIC [facility] Blood 10/23/2024 8:39 AM MANUAL EQUIPMENT MECHANIC 10/23/2024 8:40 AM MANUAL EQUIPMENT MECHANIC None Provider POINT OF CARE TESTING Final Resu lt Performing Organization Address City/[facility]/ZIP Co de Phone Number [facility] [address] [place] [address] * VITAMIN D, 25 HYDROXY TOTAL (10/23/2024 8:18 AM MANUAL EQUIPMENT MECHANIC) VITAMIN D, 25 HYDROX 37.3 ng/mL 10/23/2024 9:56 AM MANUAL EQUIPMENT MECHANIC [facility] Blood Venipuncture / Unknown 10/23/2024 8:18 AM MANUAL EQUIPMENT MECHANIC 10/23/2024 9:04 AM MANUAL EQUIPMENT MECHANIC Narrative [facility] - 10/23/2024 9:56 AM MANUAL EQUIPMENT MECHANIC Published reference ranges for Vitamin D vary depending on time and place and method of testing, and on patient's age, sex, ethnicity and levels of other measured analytes such as parathormone, calcium and phosphorus. The result should be evaluated in conjunction with clinical findings and suspicions. [place] [facility] Clinical Practice Guidelines: Status Vitamin D levels (ng/mL) Deficient <=20 At risk of inadequacy 21-29 Sufficient 30-100 Centers of Disease Control and Prevention Guidelines: Status Vitamin D levels (ng/mL) Deficient <13 At risk of inadequacy 13-19 Sufficient 20-50 Possibly harmful >50 References: [place] [facility], 2010 Dietary reference intakes for calcium and vitamin D. [place]: The National Academies Press. Lucio Moon, Bryant N, Elena ELENA, et al., Evaluation, treatment, and prevention of Vitamin D deficiency: an Endocrinology Clinical Practice Guideline. JCEM 2011 96: 7 8462-0117. Rimma A, Guevara C, Elif Beatty, et al., Vitamin D Status: [place], , [facility] data brief, no. 59, MD Fernando: National [place] for Health Statistics. 2011. us Fernando Beyer MD CHEMISTRY ORDERABLES Final R esult [facility] [address] [place] [address] * (ABNORMAL) CBC WITH AUTO DIFFERENTIAL (10/23/2024 8:18 AM MANUAL EQUIPMENT MECHANIC) Pathologist [facility] WBC 5.72 4.00 - 12.00 10(3)/mcL 10/23/2024 9:09 AM MANUAL EQUIPMENT MECHANIC [facility] RBC 6.08(H) 4.40 - 5.80 10(6)/mcL 10/23/2024 9:09 AM MANUAL EQUIPMENT MECHANIC [facility] HEMOGLOBIN (HGB) 15.3 13.0 - 16.5 g/dL 10/23/2024 9:09 AM MANUAL EQUIPMENT MECHANIC [facility] HEMATOCRIT (HCT) 49.3 38.0 - 50.0 % 10/23/2024 9:09 AM MANUAL EQUIPMENT MECHANIC [facility] MCV 81.1(L) 82.0 - 96.0 fL 10/23/2024 9:09 AM MANUAL EQUIPMENT MECHANIC [facility] MCH 25.2(L) 26.0 - 32.0 pg 10/23/2024 9:09 AM MANUAL EQUIPMENT MECHANIC [facility] MCHC 31.0 31.0 - 36.0 g/dL 10/23/2024 9:09 AM MANUAL EQUIPMENT MECHANIC [facility] PLATELET COUNT 353 140 - 440 10(3)/[facility] 10/23/2024 9:[address] [facility] RDW 14.0 11.8 - 15.5 % 10/23/2024 9:[address] [facility] MPV 9.4 8.0 - 12.6 fL 10/23/2024 9:[address] [facility] NEUTROPHILS 70.3(H) 40.0 - 68.0 % 10/23/2024 9:[address] [facility] LYMPHOCYTES 11.5(L) 19.0 - 49.0 % 10/23/2024 9:[address] [facility] MONOCYTES 16.3(H) 3.0 - 13.0 % 10/23/2024 9:[address] [facility] EOSINOPHILS 1.6 0.0 - 8.0 % 10/23/2024 9:[address] [facility] BASOPHILS 0.3 0.0 - 1.0 % 10/23/2024 9:[address] [facility] ABSOLUTE NEUTROPHILS 4.02 1.40 - 5.30 10(3)/[facility] 10/23/2024 9:[address] [facility] ABSOLUTE LYMPHOCYTES 0.66(L) 0.90 - 3.30 10(3)/[facility] 10/23/2024 9:[address] [facility] ABSOLUTE MONOCYTES 0.93(H) 0.10 - 0.90 10(3)/[facility] 10/23/2024 9:[address] [facility] ABSOLUTE EOSINOPHIL 0.09 0.00 - 0.50 10(3)/[facility] 10/23/2024 9:[address] [facility] ABSOLUTE BASOPHILS 0.02 0.00 - 0.10 10(3)/[facility] 10/23/2024 9:[address] [facility] NRBC PER 100 WBC 0 10/23/20 9:[address] [facility] Blood Venipuncture / Unknown 10/23/2024 8:18 AM MANUAL EQUIPMENT MECHANIC 10/23/2024 9:05 AM MANUAL EQUIPMENT MECHANIC us Fernando Beyer MD HEMATOLOGY ORDERABLES Final Result Performing Organization Address [facility] Co de Phone Number [facility] [address] [place] [address] * HM DILATED EYE EXAM (10/06/2024 12:00 AM MANUAL EQUIPMENT MECHANIC) 10/06/2024 us Provider Scan PROCEDURE/MINOR SURGICAL ORDERAB LES Final Result Performing Organization Address [facility] Co de Phone Number SCAN * (ABNORMAL) Hemoglobin A1C (if indicated) (05/18/2023 12:37 PM CDT) HGB-A1C 7.8(H) 4.0 - 6.0 % 05/18/2023 8:43 PM CDT [facility] Est Average Glucose 177.2 mg/dL 05/18/2023 8:43 PM CDT [facility] Blood Venipuncture / Unknown 05/18/2023 12:37 PM CDT 05/18/2023 1:04 PM CDT Narrative [facility] - 05/18/2023 8:43 PM CDT HEMOGLOBIN A1C: DIABETIC PATIENTS: WELL-CONTROLLED: 6.2 - 7.0 INTERMEDIATE WELL-CONTROLLED: 7.0 - 9.0 POORLY-CONTROLLED: >9.0 us Qi Staton APRN, LAB CLERK CHEMISTRY ORDERABLES Final Result Performing Organization Address [facility] Co de Phone Number [facility] [address] [place] [address] * PODIATRY CONSULT (04/24/2021) us Not On [...] measures to stabilize the patient. Care Teams Rand Butting Machine Operator Relationship Specialty Start Date End Date Salvador Love MD [address] [address] PCP - General Family Medicine 10/17/15 Curry Short DPM #[address] [address] Consulting Physician Podiatry 05/08/17 Fernando Beyer MD [address] [place] [address] Consulting Physician Neurology 12/02/22
--- OUTSIDE RECORDS SUMMARY | 2024-12-25 11:31 | XMS_ITS | Clinical Summary ---
Author Organization [facility] [address] [place] [address] Care Team Providers Care Laboratory Equipment Installer Name Role Phone Salvador Love MD Primary Care Provider [phone] Allergies Active Allergy Reactions Criticality Noted Date [...] microalbumin Assessment & Plan (01/16/2023 2:56 PM WIRE MACHINE OPERATOR): Chronic, well controlled Importance of low salt diet and exercise were discussed Continue current meds, including Lisinopril Assessment & Plan (07/11/2022 11:00 AM CDT): Controlled on current medications, no changes. Assessment & Plan (01/21/2022 1:19 PM WIRE MACHINE OPERATOR): Controlled on current medications, no changes. Assessment [...] spec Assessment & Plan (11/14/2020 11:05 AM WIRE MACHINE OPERATOR): Continue follow up with retina spec as scheduled Assessment & Plan (06/26/2020 12:01 PM CDT): Under retinologist's care Assessment & Plan (01/03/2020 1:11 PM WIRE MACHINE OPERATOR): He will continue follow up with retinal spec. To see if additional surgery needed before summer on OS. Sleep disturbance 12/16/2018 Assessment & Plan (01/21/2022 3:14 PM WIRE MACHINE OPERATOR): Worsening problem, not related to CBGs as well controlled including overnight. Discussed OTC sleep aids, but recommend he be evaluated by PCP to see if further work up is needed (prostate, sleep study, etc). He will schedule. Assessment & Plan (12/16/2018 1:12 PM WIRE MACHINE OPERATOR): Diff dx includes: increased nocturia with SGLT2-will [...] Atorvastatin 40mg. Last lipid panel: 11/03/23 LDL=79, GD=296. Assessment & Plan (03/04/2024 4:32 PM CDT): Chronic, stable Continue statin therapy with atorvastatin Assessment & Plan (08/20/2023 4:30 PM CDT): Chronic, well-controlled Continue statin therapy with atorvastatin 40 mg daily Assessment & Plan (01/16/2023 2:57 PM WIRE MACHINE OPERATOR): Chronic, well controlled Low fat Low cholesterol diet Exercise Continue statin therapy with Atorvastin Assessment & Plan (07/11/2022 12:50 PM CDT): Chronic problem. On statin therapy, no changes. Assessment & Plan (01/21/2022 1:19 PM WIRE MACHINE OPERATOR): Chronic problem. On statin therapy, no changes. [...] therapy Assessment & Plan (11/14/2020 11:06 AM WIRE MACHINE OPERATOR): Continue statin medication Assessment & Plan (06/26/2020 [...] panel Assessment & Plan (01/03/2020 1:10 PM WIRE MACHINE OPERATOR): Continue atorvastatin Assessment & Plan (10/20/2019 12:54 PM WIRE MACHINE OPERATOR): Goal of treatment , LDL cholesterol less [...] therapy Assessment & Plan (12/16/2018 10:13 AM WIRE MACHINE OPERATOR): Continue current dose of statin Assessment & Plan (04/23/2018 10:14 AM CDT): Increase Lipitor 20 mg qd Relapsing remitting multiple sclerosis 7 Overview (07/31/2017): Overview: Discussed risks of different medication regiments. Available modalities to monitor for side effects explained. Also dicussed that we are in the process of contacting his insurance company as well as the drug hand slitter. Given his initial MRI showing a very [...] (02/05/24 PDR OU, q3mo injections [facility] [place]). UTD on labs. Discussed with Salvador Gonzalez: [...] boluses Assessment & Plan (01/16/2023 2:56 PM WIRE MACHINE OPERATOR): Hba1c was Lab Results Component Value Date [...] today. Assessment & Plan (01/21/2022 3:13 PM WIRE MACHINE OPERATOR): Chronic problem, stable per A1c and download. [...] GLP-1 Assessment & Plan (11/14/2020 11:04 AM WIRE MACHINE OPERATOR): A1c 7.9, worsening. Some d/t pc excursions from not bolusing 10 minutes ac. Advised. Will adjust noon basal to prevent afternoon lows. Foot care specifics reviewed. Recommend that he seen new funding analyst when able. Assessment & Plan (06/26/2020 11:56 [...] this. Assessment & Plan (01/03/2020 1:14 PM WIRE MACHINE OPERATOR): Main BG pattern is elevated BG pc. Will adjust IC to 3. Also noting max microboluses during the day at various times. Will adjust AI. Recommend that he see funding analyst. Foot care reviewed. Assessment & Plan (10/20/2019 12:54 PM WIRE MACHINE OPERATOR): Hba1c was Lab Results Component Value Date [...] Pump set to automode Will have MM hop strainer to contact pt. Might need to adjust [...] time. Assessment & Plan (12/16/2018 1:16 PM WIRE MACHINE OPERATOR): A1c 8.1. Pattern of elevated BG pc [...] AM CDT): A1c 7.6. Will adjust basal table hand to address hypoglycemia. Has good understanding of [...] goal hba1c is under 7.0 to prevent intermediate diabetes complications ( eye , kidney and [...] 4h Assessment & Plan (01/21/2018 10:17 AM WIRE MACHINE OPERATOR): A1c 7.5. Main pattern is afternoon lows. Activity will be increasing with sports at school. Will lower basal rate. Assessment & Plan (10/30/2017 4:11 PM WIRE MACHINE OPERATOR): A1c 7.9, no change however considering MS [...] changes Assessment & Plan (01/16/2023 2:58 PM WIRE MACHINE OPERATOR): Pt knows he needs to take long acting insulin with Tresiba ( sample provided ),40 units q24 and to bolus with Humalog and syringes in case of pump failure Assessment & Plan (07/11/2022 12:49 PM CDT): No pump setting changes. Assessment & Plan (01/21/2022 1:40 PM WIRE MACHINE OPERATOR): No pump setting changes. Assessment & Plan (03/06/2021 8:28 AM CDT): Continue current settings Assessment & Plan (11/14/2020 11:05 AM WIRE MACHINE OPERATOR): Lower noon basal to 1.55. If still [...] hours Assessment & Plan (01/03/2020 1:23 PM WIRE MACHINE OPERATOR): Change AI to 3.15. If continues with pc excursions, will change to 2. Change IC to 3. Assessment & Plan (10/20/2019 12:55 PM WIRE MACHINE OPERATOR): Have long acting , basal insulin ( [...] settings. Assessment & Plan (12/16/2018 1:14 PM WIRE MACHINE OPERATOR): Reduce 0400 basal to 1.55. If continues [...] ) Assessment & Plan (01/21/2018 10:13 AM WIRE MACHINE OPERATOR): Lower 4 pm basal from 1.5 to 1.4 to address afternoon lows. Assessment & Plan (10/30/2017 4:08 PM WIRE MACHINE OPERATOR): No change to pump settings as basal/bolus [...] medications. Assessment & Plan (01/21/2018 10:11 AM WIRE MACHINE OPERATOR): Continue statin Assessment & Plan (10/30/2017 4:07 PM WIRE MACHINE OPERATOR): Continue statin Assessment & Plan (07/31/2017 4:26 [...] on file Legal Sex Male 4:23 PM WIRE MACHINE OPERATOR Gender Identity Not on file Sexual [...] COMPREHENSIVE METABOLIC PANEL Routine 11/03/2023 11:00 AM WIRE MACHINE OPERATOR ALBUMIN CREATININE RATIO, URINE Routine 11/03/2023 11:00 AM WIRE MACHINE OPERATOR LIPID PANEL Routine 11/03/2023 TSH Routine 07/11/2022 [...] Albumin Creatinine Ratio, Urine (11/03/2023 11:00 AM WIRE MACHINE OPERATOR) SCRIBED Creatinine, Urine 75.6 NA - NA EXTERNAL LAB SCRIBED Microalbumin <0.50 NA - NA EXTERNAL LAB SCRIBED Microalb/Creat Ratio NA NA - NA EXTERNAL LAB Urine 11/03/2023 11:0 0 AM WIRE MACHINE OPERATOR Historical Provider LAB URINE ORDERABLES Edit ed Result - Final EXTERNAL LAB * (ABNORMAL) Comprehensive metabolic panel (11/03/2023 11:00 AM WIRE MACHINE OPERATOR) SCRIBED Sodium 140 136 - 145 mmol/L [...] Units/L EXTERNAL LAB SCRIBED eGFR in NonAfrican [place]ian 60 >=60 - NA EXTERNAL LAB Blood 11/03/2023 11:0 0 AM WIRE MACHINE OPERATOR Historical Provider LAB BLOOD ORDERABLES Edit ed [...] LAB BLOOD ORDERABLES nal Result [facility] [address] [address] Department of Laboratories [place], [place] [id number] from Last 3 Months or Most Recently Relevant to Health Maintenance Insurance [facility] Care Teams Laboratory Equipment Installer Relationship Specialty Start Date End Date Salvador Love MD [address] [address] PCP - General 02/14/17
--- OUTSIDE RECORDS SUMMARY | 2024-12-25 11:31 | XMS_ITS | Clinical Summary ---
Author Organization [facility] sailsquare Address [address] [place] [address] Care Team Providers Care Executive Vice President And Chief Financial Officer Name Role Phone Salvador Love MD Primary Care Provider [phone] Source Comments [facility],non-ssm rehab Affiliates and Associated Physician Practices is amultiple site organization consisting of ambulatory clinics and hospital sitesin [place], [place], [place] and [place]. This disclosure is being madepursuant to the Care Everywhere program and may not contain all information available regarding this patient. Last updated 18.[facility] sailsquare Allergies Active Allergy Reactions Criticality Noted Date [...] Glucagon (Baqsimi One Pack) 3 MG/DOSE POWD [place] 1 spray into the nose as needed [...] days 20 capsule 12/22/2024 Active HYDROcodone-acet aminophen ([place]) 5-325 MG tabletIndication s:Other closed displaced fracture [...] Only [facility] - [facility]opedics [address] [place] [address] Lani Strange MD 12/20/2024 1:55 PM MOBILE HOMES REPAIRER Anesthesia Event [facility] PERIOPERATIVE [address] [place] [address] Tang Flood MD Bauer, Jennifer M, TITLE SEARCH MANAGER-SCREED OPERATOR 12/20/2024 12:44 PM MOBILE HOMES REPAIRER - 12/20/2024 3:34 PM MOBILE HOMES REPAIRER Surgery [facility] PERIOPERATIVE [address] [place] [address] Lani Strange MD OPEN REDUCTION INTERNAL FIXATION (ORIF) SHOULDER/PROXIMAL HUMERUS - RIGHT 12/20/2024 10:29 AM MOBILE HOMES REPAIRER - 12/22/2024 2:50 PM [facility] Hospital Encounter [facility] 2 ORTHO/NEW VIS [address] [place] [address] Lani Strange MD Orthopedics Discharge Disposition: Home or Self Care 12/20/2024 Travel 12/10/2024 9:45 AM MOBILE HOMES REPAIRER - 12/10/2024 11:59 PM MOBILE HOMES REPAIRER Hospital Encounter [facility] LAB OP DRAW STATION [address] [place] [phone] Lani Strange MD Discharge Disposition: Home or Self Care 12/10/2024 9:32 AM MOBILE HOMES REPAIRER - 12/10/2024 9:44 AM MOBILE HOMES REPAIRER Hospital Encounter [facility] DIAGNOSTIC RAD CSM [address] [place] [address] Lani Strange MD Discharge Disposition: Home or Self Care 12/10/2024 9:15 AM MOBILE HOMES REPAIRER [facility] [address] [place] [address], [place] [address] Lani Strange MD Closed fracture of proximal end of right humerus, unspecified fracture morphology, initial encounter (Primary Dx) 12/10/2024 8:47 AM MOBILE HOMES REPAIRER - 12/10/2024 9:31 AM MOBILE HOMES REPAIRER Hospital Encounter [facility] DIAGNOSTIC RAD CSM [address] [place] [address] Lani Strange MD Discharge Disposition: Home or Self Care 12/10/2024 Travel 12/07/2024 7:45 AM MOBILE HOMES REPAIRER - 12/07/2024 11:59 PM MOBILE HOMES REPAIRER Hospital Encounter [facility] CAT SCAN [address] [place] [address] Lani Strange MD Discharge Disposition: Home or Self Care 12/07/2024 Travel 12/03/2024 9:15 AM MOBILE HOMES REPAIRER [facility] [address] [place] [phone] Lani Strange MD Other closed displaced fracture of proximal end of right humerus, initial encounter (Primary Dx) 12/03/2024 8:53 AM MOBILE HOMES REPAIRER - 12/03/2024 11:59 PM MOBILE HOMES REPAIRER Hospital Encounter [facility] DIAGNOSTIC RAD CSM [address] [place] [address] Lani Strange MD Discharge Disposition: Home or Self Care 12/03/2024 Travel 11/29/2024 Orders Only [facility] - Orthopedics [address] [place] [address], [place] [address] Lani Strange MD Right shoulder pain, unspecified [...] Comments Blood Pressure 126/74 12/22/2024 8:02 AM MOBILE HOMES REPAIRER Pulse 76 12/22/2024 8:02 AM MOBILE HOMES REPAIRER Temperature 36.7 C (98 F) 12/22/2024 8:02 AM MOBILE HOMES REPAIRER Respiratory Rate 20 12/22/2024 8:02 AM MOBILE HOMES REPAIRER Oxygen Saturation 93% 12/22/2024 8:02 AM MOBILE HOMES REPAIRER Inhaled Oxygen Concentration - - Weight 106.6 kg (235 lb) 12/20/2024 10:58 AM MOBILE HOMES REPAIRER Height 180.3 cm (5' 11 ) 12/20/2024 10:58 AM MOBILE HOMES REPAIRER Body Mass Index 32.78 12/20/2024 10:58 AM MOBILE HOMES REPAIRER Plan of Treatment Upcoming Encounters Date Type Department Care Team (Late st Contact Info) Description 01/07/2025 1:00 PM MOBILE HOMES REPAIRER Office Visit [facility] - [facility] [address] [place] [phone] Lani Strange MD [facility] [address] Health Maintenance Due Date Last [...] Aguirre RN Medical Devices Implanted Type Area Escrow Representative Device Identifier Shelf Expiration Date Model / Serial / Lot Plate Std [id number] 5 Hl Shft Lck Implanted:Qty: 1 on 12/20/2024 by Lani Strange MD at [facility] Right: Humerus [employer] [facility] [id number] / / Description:from vendor tray Cancellous Chips Implanted:Qty: 1 on 12/20/2024 by Lani Strange MD at [facility] Right: Humerus 03/04/2029 [id number] / [id number] / [id number] Screw 3.5mm 2.9mm 40mm T15 Ft Slf-Tap Implanted:Qty: 2 on 12/20/2024 by Lani Strange MD at [facility] Right: Humerus [employer] [facility] 212.117 / / Description:from vendor tray Screw 3.5mm 2.9mm 30mm T15 Ft Slf-Tap Implanted:Qty: 3 on 12/20/2024 by Lani Strange MD at [facility] Right: Humerus [employer] 212.111 / / Description:from vendor tray Screw 3.5mm 2.9mm 45mm T15 Ft Slf-Tap Implanted:Qty: 4 on 12/20/2024 by Lani Strange MD at [facility] Right: Humerus [employer] [facility] 212.119 / / Description:from vendor tray Screw 3.5mm 2.9mm 55mm Ft Plv Slf-Tap Implanted:Qty: 1 on 12/20/2024 by Lani Strange MD at [facility] Right: Humerus [employer] 212.123 / / Description:from vendor tray Screw 3.5mm 2.9mm 38mm T15 Ft Slf-Tap Implanted:Qty: 1 on 12/20/2024 by Lani Strange MD at [facility] Right: Humerus [employer] 212.116 / / Description:from vendor tray Screw 3.5mm 6mm 32mm 2.5mm Ft Slf-Tap Implanted:Qty: 2 on 12/20/2024 by Lani Strange MD at [facility] Right: Humerus [employer] 204.832 / / Description:from vendor tray Screw 3.5mm 2.9mm 20mm T15 Ft Slf-Tap Implanted:Qty: 1 on 12/20/2024 by Lani Strange MD at [facility] Right: Humerus [employer] 212.106 / / Explanted Type Area Escrow Representative Device Identifier Shelf Expiration Date Model / Serial / Lot Screw 3.5mm 6mm 40mm 2.5mm Ft Slf-Tap Explanted:Qty: 1 on 12/20/2024 by Lani Strange MD at [facility] Right: Humerus [employer] [facility] 204.840 / / Description:from vendor tray Procedures Procedure Name Priority Date/Time Associated Diagnosis Comments IMAGING/RADIOLOGY/XR AY RESULTS ORDER 12/23/2024 8:25 PM MOBILE HOMES REPAIRER CARDIAC RHYTHM STRIP ORDER 12/23/2024 6:35 PM MOBILE HOMES REPAIRER PREPARE RBC LEUKOREDUCED UNIT Routine 12/23/2024 1:41 AM MOBILE HOMES REPAIRER GLUCOSE - POINT OF CARE Routine 12/22/2024 12:55 PM MOBILE HOMES REPAIRER GLUCOSE - POINT OF CARE Routine 12/22/2024 11:54 AM MOBILE HOMES REPAIRER GLUCOSE - POINT OF CARE Routine 12/22/2024 7:50 AM MOBILE HOMES REPAIRER VITAMIN B12 Add on 12/22/2024 7:42 AM MOBILE HOMES REPAIRER TSH REFLEX FREE T4 Add on 12/22/2024 7: 42 AM MOBILE HOMES REPAIRER IRON + TRANSFERRIN PANEL Add on 12/22/2024 7:42 AM MOBILE HOMES REPAIRER FOLATE Add on 12/22/2024 7:42 AM MOBILE HOMES REPAIRER COMPREHENSIVE METABOLIC PANEL PENDING DISCHARGE 12/22/2024 7:42 AM MOBILE HOMES REPAIRER HGB HCT PANEL PENDING DISCHARGE 12/22/2024 7:42 AM MOBILE HOMES REPAIRER GLUCOSE - POINT OF CARE Routine 12/22/2024 4:06 AM MOBILE HOMES REPAIRER GLUCOSE - POINT OF CARE Routine 12/21/2024 10:57 PM MOBILE HOMES REPAIRER GLUCOSE - POINT OF CARE Routine 12/21/2024 8:17 PM MOBILE HOMES REPAIRER GLUCOSE - POINT OF CARE Routine 12/21/2024 6:53 PM MOBILE HOMES REPAIRER GLUCOSE - POINT OF CARE Routine 12/21/2024 11:21 AM MOBILE HOMES REPAIRER GLUCOSE - POINT OF CARE Routine 12/21/2024 9:17 AM MOBILE HOMES REPAIRER GLUCOSE - POINT OF CARE Routine 12/21/2024 4:43 AM MOBILE HOMES REPAIRER HGB HCT PANEL AM Draw 12/21/2024 2:50 AM MOBILE HOMES REPAIRER Other closed displaced fracture of proximal end of right humerus with routine healing, subsequent encounter BASIC METABOLIC PANEL (CALCIUM TOTAL) AM Draw 12/21/2024 2:50 AM MOBILE HOMES REPAIRER Other closed displaced fracture of proximal end of right humerus with routine healing, subsequent encounter GLUCOSE - POINT OF CARE Routine 12/21/2024 12:44 AM MOBILE HOMES REPAIRER GLUCOSE - POINT OF CARE Routine 12/20/2024 10:12 PM MOBILE HOMES REPAIRER GLUCOSE - POINT OF CARE Routine 12/20/2024 9:28 PM MOBILE HOMES REPAIRER XR SHOULDER RIGHT 2VW OR MORE STAT 12/20/2024 9:06 PM MOBILE HOMES REPAIRER Other closed displaced fracture of proximal end of right humerus with routine healing, subsequent encounter GLUCOSE - POINT OF CARE Routine 12/20/2024 8:28 PM MOBILE HOMES REPAIRER FL ALISSON SURGERY Routine 12/20/2024 8:13 PM MOBILE HOMES REPAIRER Pain TRANSFUSE RED BLOOD CELL LEUKOREDUCED UNIT(S) Routine 12/20/2024 6:28 PM MOBILE HOMES REPAIRER ENDOTRACHEAL TUBE NOTE Routine 12/20/2024 2:18 PM MOBILE HOMES REPAIRER PERIPHERAL BLOCK Routine 12/20/2024 1:4 3 PM MOBILE HOMES REPAIRER [place] OPEN TX PROXIMAL HUMERAL FRACTURE 12/20/2024 1:28 PM MOBILE HOMES REPAIRER Diagnosis unknown Special Needs NEEDS BEACH CHAIR, SPIDER, SYNTHES REP(YOSSI [phone]) NOTIFIED PER OFFICE(LUIS) 12/10 TM--DATE AND TIME CHANGE--REP. NOTIFIED PER OFFICE (LUIS)--12/10 KW -REP EMAILED 12/16 BLOOD TYPE VERIFICATION Routine 12/20/2024 11:21 AM MOBILE HOMES REPAIRER COMPREHENSIVE METABOLIC PANEL AM Draw 12/20/2024 11:20 AM MOBILE HOMES REPAIRER Closed fracture of proximal end of right humerus, unspecified fracture morphology, initial encounter TYPE + SCREEN PANEL STAT 12/20/2024 1 1:17 AM MOBILE HOMES REPAIRER GLUCOSE - POINT OF CARE Routine 12/20/2024 11:13 AM MOBILE HOMES REPAIRER C-REACTIVE PROTEIN Routine 12/10/2024 10 :23 AM MOBILE HOMES REPAIRER Closed fracture of proximal end of right humerus, unspecified fracture morphology, initial encounter CBC W AUTO DIFFERENTIAL Routine 12/10/2024 10:23 AM MOBILE HOMES REPAIRER Closed fracture of proximal end of right humerus, unspecified fracture morphology, initial encounter XR CHEST 2VW Routine 12/10/2024 9:48 AM MOBILE HOMES REPAIRER Closed fracture of proximal end of right humerus, unspecified fracture morphology, initial encounter XR SHOULDER RIGHT 2VW OR MORE Routine 12/10/2024 8:58 AM MOBILE HOMES REPAIRER Right shoulder pain, unspecified chronicity CT SHOULDER RIGHT WO CONTRAST Routine 12/07/2024 7:58 AM MOBILE HOMES REPAIRER Other closed displaced fracture of proximal end of right humerus, initial encounter XR SHOULDER RIGHT 2VW OR MORE Routine 12/03/2024 9:01 AM MOBILE HOMES REPAIRER Right shoulder pain, unspecified chronicity from Last 3 Months Results * IMAGING RADIOLOGY XRAY RESULTS ORDER (12/23/2024 8:25 PM MOBILE HOMES REPAIRER) Anatomical Region Laterality Modality Other Narrative 12/23/2024 8:25 PM MOBILE HOMES REPAIRER Ordered by an unspecified provider. Scanned Document IMAGING * CARDIAC RHYTHM STRIP ORDER (12/23/2024 6:35 PM MOBILE HOMES REPAIRER) Narrative 12/23/2024 6:35 PM MOBILE HOMES REPAIRER Ordered by an unspecified provider. Scanned Document CARDIAC SERVICES ORD ERABLES * PREPARE (CROSSMATCH) RBC UNIT(S), 2 Units (12/23/2024 1:41 AM MOBILE HOMES REPAIRER) Unit Description AS1 LR PRBC [facility] BLOOD BANK LAB Unit ABO O [facility] Unit Rh POS [facility]OD [facility] Product Number R02 [facility]OD [facility] LAB Unit Donor # [id number] [facility] C BLOOD BANK LAB Unit Status transfused [facility] Product Code [id number] [facility] BL [facility] Blood Type Barcode 5100 [facility] LAB Expiration Date S [facility] BLOOD BANK LAB Unit Description AS1 LR PRBC [facility] B[facility] Unit ABO O [facility] Unit Rh POS [facility] Product Number R02 [facility] Unit Donor # [id number] [facility] C BLOOD BANK LAB Unit Status released [facility] BLO OD BANK LAB Product Code [id number] [facility] BL [facility]OD [facility]ANK LAB Blood Type Barcode 5100 [facility] B[facility] LAB Expiration Date S [facility] BLOOD BANK LAB Blood Bank BLOOD SPECIMEN / Unknown 12/20/2024 11:17 AM MOBILE HOMES REPAIRER Lani Strange MD LAB - BLOOD BANK ORD ERABLES Performing Organization Address [facility] Co de Phone Number [facility] BLOOD BANK LAB [address] [place] [address] * (ABNORMAL) GLUCOSE - POINT OF CARE (12/22/2024 12:55 PM MOBILE HOMES REPAIRER) Only the most recent of15 resultswithin the time period is included. Glucose WB/POC 289(H) 70 - 99 mg/dL 12/24/2024 9:00 AM MOBILE HOMES REPAIRER [facility] Specimen Type Cap Fingerstick 2024 9:00 AM MOBILE HOMES REPAIRER [facility] Blood BLOOD SPECIMEN / Unknown 12/22/2024 12:55 PM MOBILE HOMES REPAIRER 12/24/2024 9:00 AM MOBILE HOMES REPAIRER Lani Strange MD LAB - POINT OF CARE ORDERABLES Performing Organization Address City/[facility]/ZIP Co de Phone Number [facility] [address] [place] [address] * TSH REFLEX FREE T4 (12/22/2024 7:42 AM MOBILE HOMES REPAIRER) TSH 1.896 0.350 - 4.940 uIU/mL 12/22/2024 10:14 AM MOBILE HOMES REPAIRER [facility] Blood BLOOD SPECIMEN / Unknown Lab Venipuncture / Unknown 12/22/2024 7:42 AM MOBILE HOMES REPAIRER 12/22/2024 8:25 AM MOBILE HOMES REPAIRER Qi Fay DO LAB - CHEMISTRY ORDE DONALD Performing Organization Address [facility] Co de Phone Number [facility] [address] [place], [place] [phone] * (ABNORMAL) HGB HCT PANEL (12/22/2024 7:42 AM MOBILE HOMES REPAIRER) Only the most recent of2 resultswithin the time period is included. Pathologist [facility] Hemoglobin 10.4(L) 13.3 - 17.5 g/dL 12/22/2024 8:[address] [facility] Hematocrit 33.1(L) 38.7 - 51.1 % 12/22/2024 8:[address] [facility] Blood BLOOD SPECIMEN / Unknown Lab Venipuncture / Unknown 12/22/2024 7:42 AM MOBILE HOMES REPAIRER 12/22/2024 8:25 AM MOBILE HOMES REPAIRER Lani Strange MD LAB - HEMATOLOGY ORD RADHA Performing Organization Address [facility] Co de Phone Number [facility] [address] [place] [address] * (ABNORMAL) COMPREHENSIVE METABOLIC PANEL (12/22/2024 7:42 AM MOBILE HOMES REPAIRER) Only the most recent of2 resultswithin the time period is included. Glucose 319(H) 70 - 99 mg/dL 12/22/2024 8:[address] [facility] Sodium 130(L) 136 - 145 mmol/L 12/22/2024 8:[address] [facility] Potassium 4.9 3.5 - 5.1 mmol/L 12/22/2024 8:[address] [facility] Chloride 99 98 - 107 mmol/L 12/22/2024 8:[address] [facility] CO2 21(L) 22 - 29 mmol/L 12/22/2024 8:[address] [facility] Calcium 8.6 8.4 - 10.4 mg/dL 12/22/2024 8:[address] [facility] Anion Gap 10 6 - 16 mmol/L 12/22/2024 8:[address] [facility] BUN 22(H) 5.3 - 18.7 mg/dL 12/22/2024 8:[address] [facility] Creatinine 0.85 0.72 - 1.25 mg/dL 12/22/2024 8:[address] [facility] Alkaline Phosphatase 111 40 - 150 U/L 12/22/2024 8:[address] [facility] ALT 91(H) 0 - 55 U/L 12/22/2024 8:[address] [facility] AST 113(H) 5 - 34 U/L 12/22/2024 8:[address] [facility] Protein Total 6.3(L) 6.4 - 8.3 gm/dL 12/22/2024 8:[address] [facility] Albumin 3.2(L) 3.4 - 5.0 gm/dL 12/22/2024 8:[address] [facility] Bilirubin Total 0.7 0.2 - 1.2 mg/dL 12/22/2024 8:[address] [facility] eGFR by CKD-EPI >90 >=90 mL/min/1.7 3 m2 12/22/2024 8:[address] [facility] Blood BLOOD SPECIMEN / Unknown Lab Venipuncture / Unknown 12/22/2024 7:42 AM MOBILE HOMES REPAIRER 12/22/2024 8:25 AM MOBILE HOMES REPAIRER Lani Strange MD LAB - CHEMISTRY GREY BENNETT Performing Organization Address City/[facility]/ZIP Co de Phone Number [facility] [address] [place] [phone] * FOLATE (12/22/2024 7:42 AM MOBILE HOMES REPAIRER) Folate 14.6 7.0 - 31.4 ng/mL 12/22/2024 10:[address] [facility] Blood BLOOD SPECIMEN / Unknown Lab Venipuncture / Unknown 12/22/2024 7:42 AM MOBILE HOMES REPAIRER 12/22/2024 8:25 AM MOBILE HOMES REPAIRER Qi Fay DO LAB - CHEMISTRY ORDApolinar BENNETT [facility] [address] [place] [address] * (ABNORMAL) VITAMIN B12 (12/22/2024 7:42 AM MOBILE HOMES REPAIRER) Vitamin B12 1,087(H) 213 - 816 pg/mL 12/22/2024 12:[address] [facility] Blood BLOOD SPECIMEN / Unknown Lab Venipuncture / Unknown 12/22/2024 7:42 AM MOBILE HOMES REPAIRER 12/22/2024 8:25 AM MOBILE HOMES REPAIRER Qinahun Wymantaniya LAB - CHEMISTRY ORDE [employer] Performing Organization Address [facility] Co de Phone Number [facility] [address] [place] [phone] * (ABNORMAL) IRON + TRANSFERRIN PANEL (12/22/2024 7:42 AM MOBILE HOMES REPAIRER) Iron 15(L) 50 - 175 ug/dL 12/22/2024 9:[address] [facility] Transferrin 234 174 - 382 mg/dL 12/22/2024 9:[address] [facility] TIBC Calculated 293 240 - 450 ug/dL 12/22/2024 9:[address] [facility] Iron Saturation % 5(L) 20 - 50 % 12/22/2024 9:[address] [facility] Blood BLOOD SPECIMEN / Unknown Lab Venipuncture / Unknown 12/22/2024 7:42 AM MOBILE HOMES REPAIRER 12/22/2024 8:25 AM MOBILE HOMES REPAIRER Qinahun Fay LAB - CHEMISTRY ORDE DONALD Performing Organization Address [facility]/ZIP Co de Phone Number [facility] [address] [place] [address] * (ABNORMAL) BASIC METABOLIC PANEL (CALCIUM TOTAL) (12/21/2024 2:50 AM MOBILE HOMES REPAIRER) Glucose 288(H) 70 - 99 mg/dL 12/21/2024 4:[address] [facility] Sodium 132(L) 136 - 145 mmol/L 12/21/2024 4:[address] [facility] Potassium 4.7 3.5 - 5.1 mmol/L 12/21/2024 4:[address] [facility] Chloride 104 98 - 107 mmol/L 12/21/2024 4:[address] [facility] CO2 20(L) 22 - 29 mmol/L 12/21/2024 4:[address] [facility] Calcium 8.1(L) 8.4 - 10.4 mg/dL 12/21/2024 4:[address] [facility] Anion Gap 8 6 - 16 mmol/L 12/21/2024 4:[address] [facility] BUN 27(H) 5.3 - 18.7 mg/dL 12/21/2024 4:[address] [facility] Creatinine 0.94 0.72 - 1.25 mg/dL 12/21/2024 4:[address] [facility] eGFR by CKD-EPI >90 >=90 mL/min/1.7 3 m2 12/21/2024 4:[address] [facility] Blood BLOOD SPECIMEN / Unknown Lab Venipuncture / Unknown 12/21/2024 2:50 AM MOBILE HOMES REPAIRER 12/21/2024 3:20 AM MOBILE HOMES REPAIRER Lani Strange MD LAB - CHEMISTRY GREY BENNETT [facility] Organization Address City/State/[facility] Co de Phone Number [facility] [address] [place], [place] [phone] * XR SHOULDER RIGHT 2VW OR MORE (12/20/2024 9:06 PM MOBILE HOMES REPAIRER) Only the most recent of3 resultswithin the time period is included. Anatomical Region Laterality Modality Upper Extremity Radiographic Erna ging 12/21/2024 8:35 AM MOBILE HOMES REPAIRER Impressions 12/21/2024 8:37 AM MOBILE HOMES REPAIRER IMPRESSION: As above. > Interpreting Provider: Salvador Cavazos MD on 12/21/2024 8:37 AM Narrative 12/21/2024 8:37 AM MOBILE HOMES REPAIRER PROCEDURE: XR SHOULDER RIGHT 2VW OR MORE [...] * [place] [facility] (12/20/2024 8:13 PM MOBILE HOMES REPAIRER) Narrative [facility] RADI[facility] - 12/20/2024 8:14 PM MOBILE HOMES REPAIRER For details of this study, please see the providers note. Lani Strange MD FLUOROSCOPY ORDERABL ES Performing Organization Address City/State/[facility] Co de Phone Number [facility] RAD[facility] [address] [place] [address] * TRANSFUSE RED BLOOD CELL LEUKOREDUCED UNIT(S) (12/20/2024 6:29 PM MOBILE HOMES REPAIRER) Tang Flood MD NURSING - BLOOD PROD TRANSFUSION * ETT LINE PERFORMABLE (12/20/2024 2:18 PM MOBILE HOMES REPAIRER) Narrative [address]ann [address] APRN-SCREED OPERATOR - 12/20/2024 2:18 PM MOBILE HOMES REPAIRER [address] APRN-KAMALJIT 12/20/2024 2:18 PM Endotracheal Tube Placement: Patient Location: OR. Intubation Event Date/Time: 12/20/2024 2:02 PM Procedure: intubation ([id number]) Procedure Section: Sedation: under general anesthesia. Indications [...] PM. Staff Section Anesthesia Provider: Louann St APRN-SCREED OPERATOR, Performed the procedure Provider #1: Claire Albarado, Performed the procedure. Tang Flood MD GENERAL ANESTHES IA ORDERABLES * Peripheral Nerve Block (12/20/2024 1:43 PM MOBILE HOMES REPAIRER) Narrative Tang Flood MD - 12/20/2024 1:43 PM MOBILE HOMES REPAIRER aTng Flood MD 12/20/2024 1:45 PM Peripheral Nerve [...] * BLOOD TYPE VERIFICATION (12/20/2024 11:21 AM MOBILE HOMES REPAIRER) ABO Rh O POS 12/20/2024 11:56 AM MOBILE HOMES REPAIRER [facility] Blood Bank BLOOD SPECIMEN / Unknown Venipuncture / Unknown 12/20/2024 11:21 AM MOBILE HOMES REPAIRER 12/20/2024 11:23 AM MOBILE HOMES REPAIRER Jerry Bingham MD LAB - BLOOD BANK ORD ERABLES [facility] [address] [phone] * TYPE + SCREEN PANEL (12/20/2024 11:17 AM MOBILE HOMES REPAIRER) ABO Rh O POS 12/20/2024 11:56 AM MOBILE HOMES REPAIRER [facility] Comment:No history; collect retype. Antibody Screen NEG 11:56 AM MOBILE HOMES REPAIRER [facility] Blood Bank BLOOD SPECIMEN / Unknown Venipuncture / Unknown 12/20/2024 11:17 AM MOBILE HOMES REPAIRER 12/20/2024 11:17 AM MOBILE HOMES REPAIRER Lani Strange MD LAB - BLOOD BANK ORD ERABLES [facility] [address] [place], [place] [address] [phone] * (ABNORMAL) C-REACTIVE PROTEIN (12/10/2024 10:23 AM MOBILE HOMES REPAIRER) [facility] C-Reactive Protein 0.7(H) <=0.5 mg/dL 12/10/2024 11:25 AM [facility] Blood BLOOD SPECIMEN / Unknown Lab Venipuncture / Unknown 12/10/2024 10:23 AM MOBILE HOMES REPAIRER 12/10/2024 10:42 AM [facility] Lani Strange MD LAB - CHEMISTRY [facility] Organization Address City/State/[facility] Co de Phone Number [place] [phone] [place] [address] * (ABNORMAL) CBC W/ DIFFERENTIAL (12/10/2024 10:23 AM [facility]) [facility] WBC 7.3 4.0 - 10.7 x10E9/L 12/10/2024 10:47 AM [facility] RBC Count 5.21 4.30 - 5.80 x10E12/L 12/10/2024 10:47 AM [facility] Hemoglobin 12.9(L) 13.3 - 17.5 g/dL 12/10/2024 10:47 AM [facility] Hematocrit 40.5 38.7 - 51.1 % 12/10/2024 10:47 AM [facility] MCV 77.7(L) 80.0 - 98.0 fL 12/10/2024 10:47 AM [facility] MCH 24.8(L) 26.7 - 33.6 pg 12/10/2024 10:47 AM [facility] MCHC 31.9 31.7 - 36.3 g/dL 12/10/2024 10:47 AM [facility] RDW-CV 14.6 11.3 - 14.8 % 12/10/2024 10:47 AM [facility] Platelet Count 397 150 - 420 x10E9/L 12/10/2024 10:47 AM [facility] MPV 9.3 7.8 - 11.4 fL 12/10/2024 10:47 AM [facility] Neutrophil % 71.8 41.0 - 74.0 % 12/10/2024 10:47 AM [facility] Lymphocyte % 8.1(L) 17.0 - 47.0 % 12/10/2024 10:47 AM [facility] Monocyte % 18.6(H) 3.0 - 11.0 % 12/10/2024 10:47 AM [facility] Eosinophil % 1.1 0.0 - 7.0 % 12/10/2024 10:47 AM [facility] Basophil % 0.1 0.0 - 1.6 % 12/10/2024 10:47 AM [facility] Immature Granulocytes % 0.3 0.0 - 1.0 % 12/10/2024 10:47 AM [facility] Neutrophil Absolute 5.24 1.60 - 7.50 x10E9/L 12/10/2024 10:47 AM [facility] Lymphocyte Absolute 0.59(L) 1.00 - 4.40 x10E9/L 12/10/2024 10:47 AM [facility] Monocyte Absolute 1.36(H) 0.15 - 1.00 x10E9/L 12/10/2024 10:47 AM [facility] Eosinophil Absolute 0.08 0.00 - 0.60 x10E9/L 12/10/2024 10:47 AM [facility] Basophil Absolute 0.01 0.00 - 0.13 x10E9/L 12/10/2024 10:47 AM [facility] Blood BLOOD SPECIMEN / Unknown Lab Venipuncture / Unknown 12/10/2024 10:23 AM MOBILE HOMES REPAIRER 12/10/2024 10:42 AM [facility] Lani Strange MD LAB - HEMATOLOGY ORD ERABLES [facility] [address] [place] [address], [facility] [phone] * XR Chest 2Vw (12/10/2024 9:48 AM MOBILE HOMES REPAIRER) Anatomical Region Laterality Modality Chest Computed Radiogr aphy 12/10/2024 9:41 AM MOBILE HOMES REPAIRER Narrative 12/10/2024 9:46 AM MOBILE HOMES REPAIRER PROCEDURE: XR CHEST 2VW, DATE/TIME OF EXAM: 12/10/2024 9:32 AM, LOCATION [facility] INDICATION: S42.201A: Closed fracture of proximal end [...] drafted by Leonora Cantu MD (vice president of advertising) 12/10/2024 9:41 AM. Laz Oneal MD have personally reviewed and interpreted this examination/study. > Interpreting Provider: Laz Villarreal MD on 12/10/2024 9:46 AM Procedure Note Laz Villarreal MD - 12/10/2024 PROCEDURE: XR CHEST 2VW, DATE/TIME OF EXAM: 12/10/2024 9:32 AM, LOCATION [facility] INDICATION: S42.201A: Closed fracture of proximal end [...] drafted by Leonora Cantu MD (vice president of advertising) 12/10/2024 9:41 AM. Laz Oneal MD have personally reviewed and interpreted this examination/study. > Interpreting Provider: Laz Villarreal MD on 12/10/2024 9:46 AM Lani Strange MD DIAGNOSTIC IMAGING O RDERABLES * CT Shoulder Right Wo Contrast (12/07/2024 7:58 AM MOBILE HOMES REPAIRER) Anatomical Region Laterality Modality Upper Extremity Computed Tomogra phy 12/07/2024 8:29 AM MOBILE HOMES REPAIRER Impressions 12/07/2024 9:21 AM MOBILE HOMES REPAIRER IMPRESSION: Comminuted moderately displaced, angulated fracture of the humeral neck. This study was dictated by residential insurance inspector Tyler Krishna MD and reviewed and edited by the attending. I, Alen Martinez MD have personally reviewed and interpreted this examination/study. > Interpreting Provider: Alen Martinez MD on 12/07/2024 9:21 AM Narrative 12/07/2024 9:21 AM MOBILE HOMES REPAIRER PROCEDURE: CT SHOULDER RIGHT WO CONTRAST DATE/TIME [...] humeral neck. This study was dictated by residential insurance inspector Tyler Krishna MD and reviewed and edited by the attending. I, Alen Martinez MD have personally reviewed and interpreted this examination/study. > Interpreting Provider: Alen Martinez MD on 12/07/2024 9:21 AM Lani Strange MD CT ORDERABLES from Last 3 Months Advance Directives * Full Code (Latest Code Status on File) Date Activated Date Inactivated Comments 12/20/2024 10:06 PM 12/22/2024 3:58 PM Care Teams Executive Vice President And Chief Financial Officer Relationship Specialty Start Date End Date Salvador Love MD [address] [address] PCP - General Family Medicine 12/20/24
--- OUTSIDE RECORDS SUMMARY | 2024-12-25 11:31 | XMS_ITS | Encounter Summary ---
Author Organization [facility] Address [address] [place] [address] Phone Care Team Providers Care Pipe Turner Name Role Phone Salvador Love MD Primary Care Provider Curry Short DPM Unavailable [phone] Fernando Beyer MD Unavailable Reason for Visit * Reason Comments Medication Refill Encounter Details Date Type Department Care Team (Late st Contact Info) Description 06/22/2020 Refill [facility] - [facility] [address] [place] [address] Fernando Beyer MD [address] [place] [id number] Medication Refill Social History Tobacco Use Types [...] on file Legal Sex Male 3:09 AM ENGINEERING MGR Gender Identity Not on file Sexual Orientation Not on file documented as of this encounter Plan of Treatment Upcoming Encounters Date Type Department Care Team (Late st Contact Info) Description 12/28/2024 6:00 PM ENGINEERING MGR Office Visit [facility] [place] [address] Salvador Love MD #[address] [address] documented as of this encounter Visit Diagnoses Not on filedocumented in this encounter Additional Health Concerns Assessment Noted Time PHQ-9 Depression Total Score: 0 11/18/19 20 1:49 PM ENGINEERING MGR documented as of this encounter Care Teams Pipe Turner Relationship Specialty Start Date End Date Salvador Love MD [id number] [address] PCP - General Family Medicine 10/17/15 Curry Short DPM #[address] [address] Consulting Physician Podiatry 05/08/17 Fernando Beyer MD [address] [place] [address] Consulting Physician Neurology 12/02/22 documented as of this encounter
--- OUTSIDE RECORDS SUMMARY | 2024-12-25 11:31 | XMS_ITS | Encounter Summary ---
Author Organization [facility] Address [address] [place] [address] Phone Care Team Providers Care Manager Outreach Name Role Phone Salvador Love MD Primary Care Provider Curry Short DPRed Unavailable [phone] Fernando Beyer MD Unavailable [phone] Reason for Visit * Reason Comments Medication Refill Encounter Details Date Type Department Care Team (Late st Contact Info) Description 12/05/[facility] [address] [place] [address] Salvador Love MD #[address] [address] Medication Refill Social History Tobacco Use Types [...] on file Legal Sex Male 3:09 AM PROFESSIONAL ORGANIZER Gender Identity Not on file Sexual Orientation Not on file COVID-19 Exposure Response Date Recorded In the last month, have you been in contact with someone who was confirmed or suspected to have Coronavirus / COVID-19? No / Unsure 11/06/2020 1:26 PM PROFESSIONAL ORGANIZER documented as of this encounter Plan of Treatment Upcoming Encounters Date Type Department Care Team (Late st Contact Info) Description 12/28/2024 6:00 PM PROFESSIONAL ORGANIZER [facility] [address] [place] [address] Salvador Love MD #[address] [address] documented as of this encounter Visit Diagnoses Not on filedocumented in this encounter Additional Health Concerns Assessment Noted Time PHQ-9 Depression Total Score: 0 11/18/19 20 1:49 PM PROFESSIONAL ORGANIZER documented as of this encounter Care Teams Manager Outreach Relationship Specialty Start Date End Date Salvador Love MD #[address] [address] PCP - General Family Medicine 10/17/15 Curry Short DPM #[address] [address] Consulting Physician Podiatry 05/08/17 Fernando Beyer MD [address] [place] [address] Consulting Physician Neurology 12/02/22 documented as of this encounter
--- OUTSIDE RECORDS SUMMARY | 2024-12-25 11:31 | XMS_ITS | Referral Summary ---
Author Organization [facility] Physician Office Building [address] [place] [address] Care Team Providers Care Packaging Machine Operator Name Role Phone Salvador Love MD Primary Care Provider [phone] Allergies Active Allergy Reactions Criticality Noted Date [...] microalbumin Assessment & Plan (01/16/2023 2:56 PM POWER REACTOR OPERATOR): Chronic, well controlled Importance of low salt diet and exercise were discussed Continue current meds, including Lisinopril Assessment & Plan (07/11/2022 11:00 AM CDT): Controlled on current medications, no changes. Assessment & Plan (01/21/2022 1:19 PM POWER REACTOR OPERATOR): Controlled on current medications, no changes. [...] spec Assessment & Plan (11/14/2020 11:05 AM POWER REACTOR OPERATOR): Continue follow up with retina spec as scheduled Assessment & Plan (06/26/2020 12:01 PM CDT): Under retinologist's care Assessment & Plan (01/03/2020 1:11 PM POWER REACTOR OPERATOR): He will continue follow up with retinal spec. To see if additional surgery needed before summer on [facility]. Sleep disturbance 12/16/2018 Assessment & Plan (01/21/2022 3:14 PM POWER REACTOR OPERATOR): Worsening problem, not related to CBGs as well controlled including overnight. Discussed OTC sleep aids, but recommend he be evaluated by PCP to see if further work up is needed (prostate, sleep study, etc). He will schedule. Assessment & Plan (12/16/2018 1:12 PM POWER REACTOR OPERATOR): Diff dx includes: increased nocturia with [...] Atorvastatin 40mg. Last lipid panel: 11/03/23 LDL=79, WU=470. Assessment & Plan (03/04/2024 4:32 PM CDT): Chronic, stable Continue statin therapy with atorvastatin Assessment & Plan (08/20/2023 4:30 PM CDT): Chronic, well-controlled Continue statin therapy with atorvastatin 40 mg daily Assessment & Plan (01/16/2023 2:57 PM POWER REACTOR OPERATOR): Chronic, well controlled Low fat Low cholesterol diet Exercise Continue statin therapy with Atorvastin Assessment & Plan (07/11/2022 12:50 PM CDT): Chronic problem. On statin therapy, no changes. Assessment & Plan (01/21/2022 1:19 PM POWER REACTOR OPERATOR): Chronic problem. On statin therapy, no [...] therapy Assessment & Plan (11/14/2020 11:06 AM POWER REACTOR OPERATOR): Continue statin medication Assessment & Plan [...] panel Assessment & Plan (01/03/2020 1:10 PM POWER REACTOR OPERATOR): Continue atorvastatin Assessment & Plan (10/20/2019 12:54 PM POWER REACTOR OPERATOR): Goal of treatment , LDL cholesterol [...] therapy Assessment & Plan (12/16/2018 10:13 AM POWER REACTOR OPERATOR): Continue current dose of statin Assessment & Plan (04/23/2018 10:14 AM CDT): Increase Lipitor 20 mg qd Relapsing remitting multiple sclerosis 7 Overview (07/31/2017): Overview: Discussed risks of different medication regiments. Available modalities to monitor for side effects explained. Also dicussed that we are in the process of contacting his insurance company as well as the drug labor custodian. Given his initial MRI showing a very [...] (02/05/24 PDR OU, q3mo injections [employer]). UTD on labs. Discussed with Salvador Gonzalez: [...] boluses Assessment & Plan (01/16/2023 2:56 PM POWER REACTOR OPERATOR): Hba1c was Lab Results Component Value [...] today. Assessment & Plan (01/21/2022 3:13 PM POWER REACTOR OPERATOR): Chronic problem, stable per A1c and [...] GLP-1 Assessment & Plan (11/14/2020 11:04 AM POWER REACTOR OPERATOR): A1c 7.9, worsening. Some d/t pc excursions from not bolusing 10 minutes ac. Advised. Will adjust noon basal to prevent afternoon lows. Foot care specifics reviewed. Recommend that he seen new master electrician when able. Assessment & Plan (06/26/2020 11:56 [...] this. Assessment & Plan (01/03/2020 1:14 PM POWER REACTOR OPERATOR): Main BG pattern is elevated BG pc. Will adjust IC to 3. Also noting max microboluses during the day at various times. Will adjust AI. Recommend that he see master electrician. Foot care reviewed. Assessment & Plan (10/20/2019 12:54 PM POWER REACTOR OPERATOR): Hba1c was Lab Results Component Value [...] Pump set to automode Will have MM whale trainer to contact pt. Might need to [...] time. Assessment & Plan (12/16/2018 1:16 PM POWER REACTOR OPERATOR): A1c 8.1. Pattern of elevated BG [...] AM CDT): A1c 7.6. Will adjust basal storage battery charger to address hypoglycemia. Has good understanding of [...] goal hba1c is under 7.0 to prevent alf diabetes complications ( eye , kidney and [...] 4h Assessment & Plan (01/21/2018 10:17 AM POWER REACTOR OPERATOR): A1c 7.5. Main pattern is afternoon lows. Activity will be increasing with sports at school. Will lower basal rate. Assessment & Plan (10/30/2017 4:11 PM POWER REACTOR OPERATOR): A1c 7.9, no change however considering [...] changes Assessment & Plan (01/16/2023 2:58 PM POWER REACTOR OPERATOR): Pt knows he needs to take long acting insulin with Tresiba ( sample provided ),40 units q24 and to bolus with Humalog and syringes in case of pump failure Assessment & Plan (07/11/2022 12:49 PM CDT): No pump setting changes. Assessment & Plan (01/21/2022 1:40 PM POWER REACTOR OPERATOR): No pump setting changes. Assessment & Plan (03/06/2021 8:28 AM CDT): Continue current settings Assessment & Plan (11/14/2020 11:05 AM POWER REACTOR OPERATOR): Lower noon basal to 1.55. If [...] hours Assessment & Plan (01/03/2020 1:23 PM POWER REACTOR OPERATOR): Change AI to 3.15. If continues with pc excursions, will change to 2. Change IC to 3. Assessment & Plan (10/20/2019 12:55 PM POWER REACTOR OPERATOR): Have long acting , basal insulin [...] settings. Assessment & Plan (12/16/2018 1:14 PM POWER REACTOR OPERATOR): Reduce 0400 basal to 1.55. If [...] ) Assessment & Plan (01/21/2018 10:13 AM POWER REACTOR OPERATOR): Lower 4 pm basal from 1.5 to 1.4 to address afternoon lows. Assessment & Plan (10/30/2017 4:08 PM POWER REACTOR OPERATOR): No change to pump settings as [...] medications. Assessment & Plan (01/21/2018 10:11 AM POWER REACTOR OPERATOR): Continue statin Assessment & Plan (10/30/2017 4:07 PM POWER REACTOR OPERATOR): Continue statin Assessment & Plan (07/31/2017 [...] on file Legal Sex Male 4:23 PM POWER REACTOR OPERATOR Gender Identity Not on file Sexual [...] COMPREHENSIVE METABOLIC PANEL Routine 11/03/2023 11:00 AM POWER REACTOR OPERATOR ALBUMIN CREATININE RATIO, URINE Routine 11/03/2023 11:00 AM POWER REACTOR OPERATOR LIPID PANEL Routine 11/03/2023 TSH Routine [...] Albumin Creatinine Ratio, Urine (11/03/2023 11:00 AM POWER REACTOR OPERATOR) SCRIBED Creatinine, Urine 75.6 NA - NA EXTERNAL LAB SCRIBED Microalbumin <0.50 NA - NA EXTERNAL LAB SCRIBED Microalb/Creat Ratio NA NA - NA EXTERNAL LAB Urine 11/03/2023 11:0 0 AM POWER REACTOR OPERATOR Historical Provider LAB URINE ORDERABLES Edit ed Result - Final EXTERNAL LAB * (ABNORMAL) Comprehensive metabolic panel (11/03/2023 11:00 AM POWER REACTOR OPERATOR) SCRIBED Sodium 140 136 - 145 [...] Units/L EXTERNAL LAB SCRIBED eGFR in NonAfrican Chilean 60 >=60 - NA EXTERNAL LAB Blood 11/03/2023 11:0 0 AM POWER REACTOR OPERATOR Historical Provider LAB BLOOD ORDERABLES Edit [...] LAB BLOOD ORDERABLES nal Result [facility] [address] [address] Department [place] [address] from Last 3 Months or Most Recently Relevant to Health Maintenance Insurance [facility] Care Teams Packaging Machine Operator Relationship Specialty Start Date End Date Salvador Love MD [address] [address] [facility] - General 02/14/17
[2024-12-25] MEDS: MAGNESIUM HYDROXIDE SUSP 30 ML UDC PO (11:32)
--- OUTSIDE RECORDS SUMMARY | 2024-12-25 11:32 | XMS_ITS | Encounter Summary ---
Author Organization [facility] Address [address] [place] [address] Phone Care Team Providers Care Instructional Technology Specialist Name Role Phone Salvador Love MD Primary Care Provider Curry Short DPM Unavailable [phone] Fernando Beyer MD Unavailable [phone] Reason for Visit * Reason Comments Medication Refill Encounter Details Date Type Department Care Team (Late st Contact Info) Description 09/16/2023 Refill [facility] [address] [place] [address] Fernando Beyer MD [address] [place] [address] Medication Refill Social History Tobacco [...] Master's degree (e.g., MA, MS, Winsome, MEd, HEAD INSULATION BOARD SAW OPERATOR, [employer]) 05/26/2023 Sexually Active Control Partners Comments Yes Female Sex and Gender Information Value Date Recorded Sex Assigned at Not on file Legal Sex Male 3:09 AM CHOPPER OPERATOR Gender Identity Not on file Sexual [...] st Contact Info) Description 12/28/2024 6:00 PM CHOPPER OPERATOR Office Visit [facility] - Family Medicine [facility] [address] [place] [address] Salvador Love MD #[address] [address] documented as of this encounter Visit Diagnoses Not on filedocumented in this encounter Additional Health Concerns Assessment Noted Time PHQ-9 Depression Total Score: 0 05/27/20 23 5:00 PM CDT documented as of this encounter Care Teams Instructional Technology Specialist Relationship Specialty Start Date End Date Salvador Love MD #[address] [address] PCP - General Family Medicine 10/17/15 Curry Short DPM #[address] [address] Consulting Physician Podiatry 05/08/17 Fernando Beyer MD [address] [place] [address] Consulting Physician Neurology 12/02/22 documented as of this encounter
--- OUTSIDE RECORDS SUMMARY | 2024-12-25 11:32 | XMS_ITS | Referral Summary ---
Author Organization [facility] Address [address] [place] [address] Care Team Providers Care Practice Professional Name Role Phone Salvador Love MD Primary Care Provider [phone] Source Comments [facility],non-owned Affiliates and Associated Physician Practices is amultiple site organization consisting of ambulatory clinics and hospital sitesin [place], [place], [place] and [place]. This disclosure is being madepursuant to the Care Everywhere program and may not contain all information available regarding this patient. Last updated 18.[facility] Encounters Date Type Department Care Team Description 12/22/2024 Orders Only [facility] - Orthopedics [address] [address] Lani Strange MD 12/20/2024 10:29 AM LEAD BUSINESS SYSTEMS ANALYST - 12/22/2024 2:50 PM LEAD BUSINESS SYSTEMS ANALYST Hospital Encounter [facility] 2 ORTHO/NEW VIS [address] [place] [phone] Lani Strange MD Orthopedics Discharge Disposition: Home or Self Care 12/20/2024 Travel 12/20/2024 1:55 PM LEAD BUSINESS SYSTEMS ANALYST Anesthesia Event [facility] PERIOPERATIVE [address] [place] [phone] Tang Flood MD Bauer, Jennifer M, [employer]ER 12/20/2024 12:44 PM LEAD BUSINESS SYSTEMS ANALYST - 12/20/2024 3:34 PM LEAD BUSINESS SYSTEMS ANALYST Surgery [facility] PERIOPERATIVE [address] [place] [phone] Lani Strange MD OPEN REDUCTION INTERNAL FIXATION (ORIF) SHOULDER/PROXIMAL HUMERUS - RIGHT 12/10/2024 9:45 AM LEAD BUSINESS SYSTEMS ANALYST - 12/10/2024 11:59 PM LEAD BUSINESS SYSTEMS ANALYST Hospital Encounter [facility] LAB OP DRAW STATION [address] [place] [address] Lani Strange MD Discharge Disposition: Home or Self Care 12/10/2024 9:32 AM LEAD BUSINESS SYSTEMS ANALYST - 12/10/2024 9:44 AM LEAD BUSINESS SYSTEMS ANALYST Hospital Encounter [facility] DIAGNOSTIC RAD CSM 1L [address] [facility] [place] [address] Lani Strange MD Discharge Disposition: Home or Self Care 12/10/2024 8:47 AM LEAD BUSINESS SYSTEMS ANALYST - 12/10/2024 9:31 AM LEAD BUSINESS SYSTEMS ANALYST Hospital Encounter [facility] DIAGNOSTIC RAD CSM [address]L [address] [facility] [place] [address] Lani Strange MD Discharge Disposition: Home or Self Care 12/10/2024 Travel 12/10/2024 9:15 AM LEAD BUSINESS SYSTEMS ANALYST Office Visit [facility] - Orthopedics [address] [place] [phone] Lani Strange MD Closed fracture of proximal end of right humerus, unspecified fracture morphology, initial encounter (Primary Dx) 12/07/2024 Travel 12/07/2024 7:45 AM LEAD BUSINESS SYSTEMS ANALYST - 12/07/2024 11:59 PM LEAD BUSINESS SYSTEMS ANALYST Hospital Encounter [facility] CAT SCAN [address] [place] [address] Lani Strange MD Discharge Disposition: Home or Self Care 12/03/2024 8:53 AM LEAD BUSINESS SYSTEMS ANALYST - 12/03/2024 11:59 PM LEAD BUSINESS SYSTEMS ANALYST Hospital Encounter [facility] DIAGNOSTIC RAD CSM 1L [address] [facility] [place] [address] Lani Strange MD Discharge Disposition: Home or Self Care 12/03/2024 Travel 12/03/2024 9:15 AM LEAD BUSINESS SYSTEMS ANALYST Office Visit [facility] - Orthopedics [address] [place] [phone] Lani Strange MD Other closed displaced fracture of proximal end of right humerus, initial encounter (Primary Dx) 11/29/2024 Orders Only [facility] - Orthopedics [address] [facility] [place] [address] Lani Strange MD Right shoulder [...] Glucagon (Baqsimi One Pack) 3 MG/DOSE POWD Omer 1 spray into the nose as needed [...] 20 capsule 12/22/2024 5 Active HYDROcodone-acet aminophen ([place]) 5-325 MG tabletIndication s:Other closed displaced fracture [...] Comments Blood Pressure 126/74 12/22/2024 8:02 AM LEAD BUSINESS SYSTEMS ANALYST Pulse 76 12/22/2024 8:02 AM LEAD BUSINESS SYSTEMS ANALYST Temperature 36.7 C (98 F) 12/22/2024 8:02 AM LEAD BUSINESS SYSTEMS ANALYST Respiratory Rate 20 12/22/2024 8:02 AM LEAD BUSINESS SYSTEMS ANALYST Oxygen Saturation 93% 12/22/2024 8:02 AM LEAD BUSINESS SYSTEMS ANALYST Inhaled Oxygen Concentration - - Weight 106.6 kg (235 lb) 12/20/2024 10:58 AM LEAD BUSINESS SYSTEMS ANALYST Height 180.3 cm (5' 11 ) 12/20/2024 10:58 AM LEAD BUSINESS SYSTEMS ANALYST Body Mass Index 32.78 12/20/2024 10:58 AM LEAD BUSINESS SYSTEMS ANALYST Plan of Treatment Upcoming Encounters Date Type Department Care Team (Late st Contact Info) Description 01/07/2025 1:00 PM LEAD BUSINESS SYSTEMS ANALYST Office Visit [facility] - Orthopedics [address] [place] [address], [place] [address] Lnai Strange MD [address] [place] [phone] Goals Goal Patient Goal Type Associated Problems Recent Progress Patient-Stated? Author Patient will verbalize understanding of symptoms General No Zoey Aguirre RN Medical Devices Implanted Type Area Bone Glue Maker Device Identifier Shelf Expiration Date Model / Serial / Lot Plate Std [id number] 5 Hl Shft Lck Implanted:Qty: 1 on 12/20/2024 by Lani Strange MD at [facility] [place] Right: Humerus [email or web address] [id number] / / Description:from vendor tray Cancellous Chips Implanted:Qty: 1 on 12/20/2024 by Lani Strange MD at [facility] [place] Right: Humerus 03/04/2029 [id number] / [id number] / [id number] Screw 3.5mm 2.9mm 40mm T15 Ft Slf-Tap Implanted:Qty: 2 on 12/20/2024 by Lani Strange MD at [facility] [place] Right: Humerus [employer] [id number] / / Description:from vendor tray Screw 3.5mm 2.9mm 30mm T15 Ft Slf-Tap Implanted:Qty: 3 on 12/20/2024 by Lani Strange MD at [facility] [place] Right: Humerus [employer] 212.111 / / Description:from vendor tray Screw 3.5mm 2.9mm 45mm T15 Ft Slf-Tap Implanted:Qty: 4 on 12/20/2024 by Lani Strange MD at [facility] [place] Right: Humerus [employer] 212.119 / / Description:from vendor tray Screw 3.5mm 2.9mm 55mm Ft Plv Slf-Tap Implanted:Qty: 1 on 12/20/2024 by Lani Strange MD at [facility] [place] Right: Humerus [employer] 212.123 / / Description:from vendor tray Screw 3.5mm 2.9mm 38mm T15 Ft Slf-Tap Implanted:Qty: 1 on 12/20/2024 by Lani Strange MD at [facility] [place] Right: Humerus [employer] 212.116 / / Description:from vendor tray Screw 3.5mm 6mm 32mm 2.5mm Ft Slf-Tap Implanted:Qty: 2 on 12/20/2024 by Lani Strange MD at [facility] [place] Right: Humerus [employer] 204.832 / / Description:from vendor tray Screw 3.5mm 2.9mm 20mm T15 Ft Slf-Tap Implanted:Qty: 1 on 12/20/2024 by Lani Strange MD at [facility] [place] Right: Humerus [employer] 212.106 / / Explanted Type Area Bone Glue Maker Device Identifier Shelf Expiration Date Model / Serial / Lot Screw 3.5mm 6mm 40mm 2.5mm Ft Slf-Tap Explanted:Qty: 1 on 12/20/2024 by Lani Strange MD at [facility] [place] Right: Humerus [employer] 204.840 / / Description:from vendor tray Procedures Procedure Name Priority Date/Time Associated Diagnosis Comments IMAGING/RADIOLOGY/XR AY RESULTS ORDER 12/23/2024 8:25 PM LEAD BUSINESS SYSTEMS ANALYST CARDIAC RHYTHM STRIP ORDER 12/23/2024 6:35 PM LEAD BUSINESS SYSTEMS ANALYST PREPARE RBC LEUKOREDUCED UNIT Routine 12/23/2024 1:41 AM LEAD BUSINESS SYSTEMS ANALYST GLUCOSE - POINT OF CARE Routine 12/22/2024 12:55 PM LEAD BUSINESS SYSTEMS ANALYST GLUCOSE - POINT OF CARE Routine 12/22/2024 11:54 AM LEAD BUSINESS SYSTEMS ANALYST GLUCOSE - POINT OF CARE Routine 12/22/2024 7:50 AM LEAD BUSINESS SYSTEMS ANALYST VITAMIN B12 Add on 12/22/2024 7:42 AM LEAD BUSINESS SYSTEMS ANALYST TSH REFLEX FREE T4 Add on 12/22/2024 7: 42 AM LEAD BUSINESS SYSTEMS ANALYST IRON + TRANSFERRIN PANEL Add on 12/22/2024 7:42 AM LEAD BUSINESS SYSTEMS ANALYST FOLATE Add on 12/22/2024 7:42 AM LEAD BUSINESS SYSTEMS ANALYST COMPREHENSIVE METABOLIC PANEL PENDING DISCHARGE 12/22/2024 7:42 AM LEAD BUSINESS SYSTEMS ANALYST HGB HCT PANEL PENDING DISCHARGE 12/22/2024 7:42 AM LEAD BUSINESS SYSTEMS ANALYST GLUCOSE - POINT OF CARE Routine 12/22/2024 4:06 AM LEAD BUSINESS SYSTEMS ANALYST GLUCOSE - POINT OF CARE Routine 12/21/2024 10:57 PM LEAD BUSINESS SYSTEMS ANALYST GLUCOSE - POINT OF CARE Routine 12/21/2024 8:17 PM LEAD BUSINESS SYSTEMS ANALYST GLUCOSE - POINT OF CARE Routine 12/21/2024 6:53 PM LEAD BUSINESS SYSTEMS ANALYST GLUCOSE - POINT OF CARE Routine 12/21/2024 11:21 AM LEAD BUSINESS SYSTEMS ANALYST GLUCOSE - POINT OF CARE Routine 12/21/2024 9:17 AM LEAD BUSINESS SYSTEMS ANALYST GLUCOSE - POINT OF CARE Routine 12/21/2024 4:43 AM LEAD BUSINESS SYSTEMS ANALYST HGB HCT PANEL AM Draw 12/21/2024 2:50 AM LEAD BUSINESS SYSTEMS ANALYST Other closed displaced fracture of proximal end of right humerus with routine healing, subsequent encounter BASIC METABOLIC PANEL (CALCIUM TOTAL) AM Draw 12/21/2024 2:50 AM LEAD BUSINESS SYSTEMS ANALYST Other closed displaced fracture of proximal end of right humerus with routine healing, subsequent encounter GLUCOSE - POINT OF CARE Routine 12/21/2024 12:44 AM LEAD BUSINESS SYSTEMS ANALYST GLUCOSE - POINT OF CARE Routine 12/20/2024 10:12 PM LEAD BUSINESS SYSTEMS ANALYST GLUCOSE - POINT OF CARE Routine 12/20/2024 9:28 PM LEAD BUSINESS SYSTEMS ANALYST XR SHOULDER RIGHT 2VW OR MORE STAT 12/20/2024 9:06 PM LEAD BUSINESS SYSTEMS ANALYST Other closed displaced fracture of proximal end of right humerus with routine healing, subsequent encounter GLUCOSE - POINT OF CARE Routine 12/20/2024 8:28 PM LEAD BUSINESS SYSTEMS ANALYST FL ALISSON SURGERY Routine 12/20/2024 8:13 PM LEAD BUSINESS SYSTEMS ANALYST Pain TRANSFUSE RED BLOOD CELL LEUKOREDUCED UNIT(S) Routine 12/20/2024 6:28 PM LEAD BUSINESS SYSTEMS ANALYST ENDOTRACHEAL TUBE NOTE Routine 12/20/2024 2:18 PM LEAD BUSINESS SYSTEMS ANALYST PERIPHERAL BLOCK Routine 12/20/2024 1:43 PM LEAD BUSINESS SYSTEMS ANALYST GA OPEN TX PROXIMAL HUMERAL FRACTURE 12/20/2024 1:28 PM LEAD BUSINESS SYSTEMS ANALYST Diagnosis unknown Special Needs NEEDS BEACH CHAIR, SPIDER, SYNTHES REP(YOSSI [phone]) NOTIFIED PER OFFICE(LUIS) 12/10 TM--DATE AND TIME CHANGE--REP. NOTIFIED PER OFFICE (LUIS)--12/10 KW -REP EMAILED 12/16 WC BLOOD TYPE VERIFICATION Routine 12/20/2024 11:21 AM LEAD BUSINESS SYSTEMS ANALYST COMPREHENSIVE METABOLIC PANEL AM Draw 12/20/2024 11:20 AM LEAD BUSINESS SYSTEMS ANALYST Closed fracture of proximal end of right humerus, unspecified fracture morphology, initial encounter TYPE + SCREEN PANEL STAT 12/20/2024 1 1:17 AM LEAD BUSINESS SYSTEMS ANALYST GLUCOSE - POINT OF CARE Routine 12/20/2024 11:13 AM LEAD BUSINESS SYSTEMS ANALYST C-REACTIVE PROTEIN Routine 12/10/2024 10 :23 AM LEAD BUSINESS SYSTEMS ANALYST Closed fracture of proximal end of right humerus, unspecified fracture morphology, initial encounter CBC W AUTO DIFFERENTIAL Routine 12/10/2024 10:23 AM LEAD BUSINESS SYSTEMS ANALYST Closed fracture of proximal end of right humerus, unspecified fracture morphology, initial encounter XR CHEST 2VW Routine 12/10/2024 9:48 AM LEAD BUSINESS SYSTEMS ANALYST Closed fracture of proximal end of right humerus, unspecified fracture morphology, initial encounter XR SHOULDER RIGHT 2VW OR MORE Routine 12/10/2024 8:58 AM LEAD BUSINESS SYSTEMS ANALYST Right shoulder pain, unspecified chronicity CT SHOULDER RIGHT WO CONTRAST Routine 12/07/2024 7:58 AM LEAD BUSINESS SYSTEMS ANALYST Other closed displaced fracture of proximal end of right humerus, initial encounter XR SHOULDER RIGHT 2VW OR MORE Routine 12/03/2024 9:01 AM LEAD BUSINESS SYSTEMS ANALYST Right shoulder pain, unspecified chronicity from Last 3 Months Results * IMAGING RADIOLOGY XRAY RESULTS ORDER (12/23/2024 8:25 PM LEAD BUSINESS SYSTEMS ANALYST) Anatomical Region Laterality Modality Other Narrative 12/23/2024 8:25 PM LEAD BUSINESS SYSTEMS ANALYST Ordered by an unspecified provider. Scanned Document IMAGING * CARDIAC RHYTHM STRIP ORDER (12/23/2024 6:35 PM LEAD BUSINESS SYSTEMS ANALYST) Narrative 12/23/2024 6:35 PM LEAD BUSINESS SYSTEMS ANALYST Ordered by an unspecified provider. Scanned Document CARDIAC SERVICES ORD ERABLES * PREPARE (CROSSMATCH) RBC UNIT(S), 2 Units (12/23/2024 1:41 AM LEAD BUSINESS SYSTEMS ANALYST) Unit Description AS1 LR PRBC [facility] BLOOD BANK LAB Unit ABO O [facility] BLOOD BANK LAB Unit Rh POS [facility] BLOOD BANK LAB Product Number R02 [facility] BLOOD BANK LAB Unit Donor # [id number] [facility] BLOOD BANK LAB Unit Status transfused SM BL OOD BANK LAB Product Code [id number] [facility] BL OOD BANK LAB Blood Type Barcode 5100 [facility] BLOOD BANK LAB Expiration Date S [facility] BLOOD [facility] LAB Unit Description AS1 LR PRBC [facility] BLOOD BANK LAB Unit ABO O [facility] BLOOD BANK LAB Unit Rh POS [facility] BLOOD BANK LAB Product Number R02 [facility] BLOOD BANK LAB Unit Donor # [id number] [facility] C BLOOD BANK LAB Unit Status released [facility] BLO OD BANK LAB Product Code [id number] [facility] BL OOD BANK LAB Blood Type Barcode 5100 [facility] BLOOD BANK LAB Expiration Date S [facility] BLOOD BANK LAB Blood Bank BLOOD SPECIMEN / Unknown 12/20/2024 11:17 AM LEAD BUSINESS SYSTEMS ANALYST Lani Strange MD LAB - BLOOD BANK ORD ERABLES [facility] BLOOD BANK LAB [address] [phone] * (ABNORMAL) GLUCOSE - POINT OF CARE (12/22/2024 12:55 PM LEAD BUSINESS SYSTEMS ANALYST) Only the most recent of15 resultswithin the time period is included. Glucose WB/POC 289(H) 70 - 99 mg/dL 12/24/2024 9:00 AM [facility] Specimen Type Cap Fingerstick 2024 9:00 AM [facility] Blood BLOOD SPECIMEN / Unknown 12/22/2024 12:55 PM LEAD BUSINESS SYSTEMS ANALYST 12/24/2024 9:00 AM LEAD BUSINESS SYSTEMS ANALYST Lani Strange MD LAB - POINT OF CARE ORDERABLES Performing Organization Address City/[facility]/ZIP Co de Phone Number [facility] [address] [place], [place] [phone] * TSH REFLEX FREE T4 (12/22/2024 7:42 AM LEAD BUSINESS SYSTEMS ANALYST) Pathologist [facility] TSH 1.896 0.350 - 4.940 uIU/mL 12/22/2024 10:14 AM [facility] Blood BLOOD SPECIMEN / Unknown Lab Venipuncture / Unknown 12/22/2024 7:42 AM LEAD BUSINESS SYSTEMS ANALYST 12/22/2024 8:25 AM LEAD BUSINESS SYSTEMS ANALYST Qi Fay DO LAB - CHEMISTRY GREY BENNETT Performing Organization Address City/[facility]/ZIP Co de Phone Number [facility] [address] [place] [address] * (ABNORMAL) HGB HCT PANEL (12/22/2024 7:42 AM LEAD BUSINESS SYSTEMS ANALYST) Only the most recent of2 resultswithin the time period is included. Hemoglobin 10.4(L) 13.3 - 17.5 g/dL 12/22/2024 8:34 AM [facility] Hematocrit 33.1(L) 38.7 - 51.1 % 12/22/2024 8:34 AM [facility] Blood BLOOD SPECIMEN / Unknown Lab Venipuncture / Unknown 12/22/2024 7:42 AM LEAD BUSINESS SYSTEMS ANALYST 12/22/2024 8:25 AM LEAD BUSINESS SYSTEMS ANALYST Lani Strange MD LAB - HEMATOLOGY ORD ERABLES [facility] [address] [place], [place] [phone] * (ABNORMAL) COMPREHENSIVE METABOLIC PANEL (12/22/2024 7:42 AM [facility]) Only the most recent of2 resultswithin the time period is included. Glucose 319(H) 70 - 99 mg/dL 12/22/2024 8:51 AM [facility] Sodium 130(L) 136 - 145 mmol/L 12/22/2024 8:51 AM [facility] Potassium 4.9 3.5 - 5.1 mmol/L 12/22/2024 8:51 AM [facility] Chloride 99 98 - 107 mmol/L 12/22/2024 8:51 AM [facility] CO2 21(L) 22 - 29 mmol/L 12/22/2024 8:51 AM [facility] Calcium 8.6 8.4 - 10.4 mg/dL 12/22/2024 8:51 AM [facility] Anion Gap 10 6 - 16 mmol/L 12/22/2024 8:51 AM [facility] BUN 22(H) 5.3 - 18.7 mg/dL 12/22/2024 8:51 AM [facility] Creatinine 0.85 0.72 - 1.25 mg/dL 12/22/2024 8:51 AM [facility] Alkaline Phosphatase 111 40 - 150 U/L 12/22/2024 8:51 AM [facility] ALT 91(H) 0 - 55 U/L 12/22/2024 8:51 AM [facility] AST 113(H) 5 - 34 U/L 12/22/2024 8:51 AM [facility] Protein Total 6.3(L) 6.4 - 8.3 gm/dL 12/22/2024 8:51 AM [facility] Albumin 3.2(L) 3.4 - 5.0 gm/dL 12/22/2024 8:51 AM [facility] Bilirubin Total 0.7 0.2 - 1.2 mg/dL 12/22/2024 8:51 AM [facility] eGFR by CKD-EPI >90 >=90 mL/min/1.7 3 m2 12/22/2024 8:51 AM LEAD BUSINESS SYSTEMS ANALYST [facility] Blood BLOOD SPECIMEN / Unknown Lab Venipuncture / Unknown 12/22/2024 7:42 AM LEAD BUSINESS SYSTEMS ANALYST 12/22/2024 8:25 AM LEAD BUSINESS SYSTEMS ANALYST Lani Strange MD LAB - CHEMISTRY ORDE DONALD Performing Organization Address [facility]/ZIP Co de Phone Number [facility] [address] [place] [phone] * FOLATE (12/22/2024 7:42 AM LEAD BUSINESS SYSTEMS ANALYST) Folate 14.6 7.0 - 31.4 ng/mL 12/22/2024 10:14 AM LEAD BUSINESS SYSTEMS ANALYST [facility] Blood BLOOD SPECIMEN / Unknown Lab Venipuncture / Unknown 12/22/2024 7:42 AM LEAD BUSINESS SYSTEMS ANALYST 12/22/2024 8:25 AM LEAD BUSINESS SYSTEMS ANALYST Qi Fay DO LAB - CHEMISTRY ORDE DONALD Performing Organization Address [facility] Co de Phone Number [facility] [address] [place] [phone] * (ABNORMAL) VITAMIN B12 (12/22/2024 7:42 AM LEAD BUSINESS SYSTEMS ANALYST) Vitamin B12 1,087(H) 213 - 816 pg/mL 12/22/2024 12:41 PM LEAD BUSINESS SYSTEMS ANALYST [facility] Blood BLOOD SPECIMEN / Unknown Lab Venipuncture / Unknown 12/22/2024 7:42 AM LEAD BUSINESS SYSTEMS ANALYST 12/22/2024 8:25 AM LEAD BUSINESS SYSTEMS ANALYST Qi Fay DO LAB - CHEMISTRY ORDApolinar DONALD Performing Organization Address [facility] Co de Phone Number [facility] [address] [place] [phone] * (ABNORMAL) IRON + TRANSFERRIN PANEL (12/22/2024 7:42 AM LEAD BUSINESS SYSTEMS ANALYST) Iron 15(L) 50 - 175 ug/dL 12/22/2024 9:41 AM LEAD BUSINESS SYSTEMS ANALYST [facility] Transferrin 234 174 - 382 mg/dL 12/22/2024 9:41 AM [facility] TIBC Calculated 293 240 - 450 ug/dL 12/22/2024 9:41 AM [facility] Iron Saturation % 5(L) 20 - 50 % 12/22/2024 9:41 AM [facility] Blood BLOOD SPECIMEN / Unknown Lab Venipuncture / Unknown 12/22/2024 7:42 AM LEAD BUSINESS SYSTEMS ANALYST 12/22/2024 8:25 AM [facility] Qi Fay DO LAB - CHEMISTRY GREY BENNETT [facility] [address] [place] [address] * (ABNORMAL) BASIC METABOLIC PANEL (CALCIUM TOTAL) (12/21/2024 2:50 AM [facility]) Glucose 288(H) 70 - 99 mg/dL 12/21/2024 4:16 AM [facility] Sodium 132(L) 136 - 145 mmol/L 12/21/2024 4:16 AM [facility] Potassium 4.7 3.5 - 5.1 mmol/L 12/21/2024 4:16 AM [facility] Chloride 104 98 - 107 mmol/L 12/21/2024 4:16 AM [facility] CO2 20(L) 22 - 29 mmol/L 12/21/2024 4:16 AM [facility] Calcium 8.1(L) 8.4 - 10.4 mg/dL 12/21/2024 4:16 AM [facility] Anion Gap 8 6 - 16 mmol/L 12/21/2024 4:16 AM [facility] BUN 27(H) 5.3 - 18.7 mg/dL 12/21/2024 4:16 AM [facility] Creatinine 0.94 0.72 - 1.25 mg/dL 12/21/2024 4:16 AM [facility] eGFR by CKD-EPI >90 >=90 mL/min/1.7 3 m2 12/21/2024 4:16 AM [facility] Blood BLOOD SPECIMEN / Unknown Lab Venipuncture / Unknown 12/21/2024 2:50 AM LEAD BUSINESS SYSTEMS ANALYST 12/21/2024 3:20 AM LEAD BUSINESS SYSTEMS ANALYST Lani Strange MD LAB - CHEMISTRY IFTIKHARApolinar OSPINAARMANDO [facility] [address] [place] [address] * XR SHOULDER RIGHT 2VW OR MORE (12/20/2024 9:06 PM LEAD BUSINESS SYSTEMS ANALYST) Only the most recent of3 resultswithin the time period is included. Anatomical Region Laterality Modality Upper Extremity Radiographic Erna ging 12/21/2024 8:35 AM LEAD BUSINESS SYSTEMS ANALYST Impressions 12/21/2024 8:37 AM LEAD BUSINESS SYSTEMS ANALYST IMPRESSION: As above. > Interpreting Provider: Salvador Cavazos MD on 12/21/2024 8:37 AM Narrative 12/21/2024 8:37 AM LEAD BUSINESS SYSTEMS ANALYST PROCEDURE: XR SHOULDER RIGHT 2VW OR MORE [...] * FL Alisson Surgery (12/20/2024 8:13 PM LEAD BUSINESS SYSTEMS ANALYST) Narrative [facility] RADIOLOG[facility] - 12/20/2024 8:14 PM LEAD BUSINESS SYSTEMS ANALYST For details of this study, please see the providers note. Lani Strange MD FLUOROSCOPY ORDERABL ES [facility] RADIOLOGY [address] [place] [address] * TRANSFUSE RED BLOOD CELL LEUKOREDUCED UNIT(S) (12/20/2024 6:29 PM LEAD BUSINESS SYSTEMS ANALYST) Tang Flood MD NURSING - BLOOD PROD TRANSFUSION * ETT LINE PERFORMABLE (12/20/2024 2:18 PM LEAD BUSINESS SYSTEMS ANALYST) Narrative [facility]ann St APRN-CRNA - 12/20/2024 2:18 PM LEAD BUSINESS SYSTEMS ANALYST Louann St APRN-CRNA 12/20/2024 2:18 PM Endotracheal Tube Placement: Patient Location: OR. Intubation Event Date/Time: 12/20/2024 2:02 PM Procedure: intubation ([id number]) Procedure Section: Sedation: under general anesthesia. Indications [...] * Peripheral Nerve Block (12/20/2024 1:43 PM LEAD BUSINESS SYSTEMS ANALYST) Narrative Tang Flood MD - 12/20/2024 1:43 PM LEAD BUSINESS SYSTEMS ANALYST Tang Flood MD 12/20/2024 1:45 PM Peripheral [...] * BLOOD TYPE VERIFICATION (12/20/2024 11:21 AM LEAD BUSINESS SYSTEMS ANALYST) ABO Rh O POS 12/20/2024 11:56 AM LEAD BUSINESS SYSTEMS ANALYST [facility] BLOOD BANK LAB Blood Bank BLOOD SPECIMEN / Unknown Venipuncture / Unknown 12/20/2024 11:21 AM LEAD BUSINESS SYSTEMS ANALYST 12/20/2024 11:23 AM LEAD BUSINESS SYSTEMS ANALYST Jerry Bingham MD LAB - BLOOD BANK ORD ERABLES Performing Organization Address City/[facility]/ZIP Co de Phone Number [facility] BLOOD BANK LAB [address] [place] [phone] [place] [address] * TYPE + SCREEN PANEL (12/20/2024 11:17 AM LEAD BUSINESS SYSTEMS ANALYST) ABO Rh O POS 12/20/2024 11:56 AM LEAD BUSINESS SYSTEMS ANALYST [facility] BLOOD BANK LAB Comment:No history; collect retype. Antibody Screen NEG 11:56 AM LEAD BUSINESS SYSTEMS ANALYST [facility] BLOOD [facility] LAB Blood Bank BLOOD SPECIMEN / Unknown Venipuncture / Unknown 12/20/2024 11:17 AM LEAD BUSINESS SYSTEMS ANALYST 12/20/2024 11:17 AM LEAD BUSINESS SYSTEMS ANALYST Lani Strange MD LAB - BLOOD BANK ORD ERABLES Performing Organization Address [facility]/ZIP Co de Phone Number [facility] BLOOD BANK LAB [address] [place] [address] * (ABNORMAL) C-REACTIVE PROTEIN (12/10/2024 10:23 AM LEAD BUSINESS SYSTEMS ANALYST) Pathologist [facility] [place] C-Reactive Protein 0.7(H) <=0.5 mg/dL 12/10/2024 11:25 AM LEAD BUSINESS SYSTEMS ANALYST [facility] Blood BLOOD SPECIMEN / Unknown Lab Venipuncture / Unknown 12/10/2024 10:23 AM LEAD BUSINESS SYSTEMS ANALYST 12/10/2024 10:42 AM LEAD BUSINESS SYSTEMS ANALYST Lani Strange MD LAB - CHEMISTRY GREY BENNETT [address] [address], [facility] [phone] * (ABNORMAL) CBC W/ DIFFERENTIAL (12/10/2024 10:23 AM LEAD BUSINESS SYSTEMS ANALYST) WBC 7.3 4.0 - 10.7 x10E9/L 12/10/2024 10:47 AM [facility] RBC Count 5.21 4.30 - 5.80 x10E12/L 12/10/2024 10:47 AM [facility] Hemoglobin 12.9(L) 13.3 - 17.5 g/dL 12/10/2024 10:47 AM [facility] Hematocrit 40.5 38.7 - 51.1 % 12/10/2024 10:47 AM [facility] MCV 77.7(L) 80.0 - 98.0 fL 12/10/2024 10:47 AM [facility] MCH 24.8(L) 26.7 - 33.6 pg 12/10/2024 10:47 AM [facility] MCHC 31.9 31.7 - 36.3 g/dL 12/10/2024 10:47 AM [facility] RDW-CV 14.6 11.3 - 14.8 % 12/10/2024 10:47 AM [facility] Platelet Count 397 150 - 420 x10E9/L 12/10/2024 10:47 AM [facility] MPV 9.3 7.8 - 11.4 fL 12/10/2024 10:47 AM [facility] Neutrophil % 71.8 41.0 - 74.0 % 12/10/2024 10:47 AM [facility] Lymphocyte % 8.1(L) 17.0 - 47.0 % 12/10/2024 10:47 AM [facility] Monocyte % 18.6(H) 3.0 - 11.0 % 12/10/2024 10:47 AM [facility] Eosinophil % 1.1 0.0 - 7.0 % 12/10/2024 10:47 AM [facility] Basophil % 0.1 0.0 - 1.6 % 12/10/2024 10:47 AM [facility] Immature Granulocytes % 0.3 0.0 - 1.0 % 12/10/2024 10:47 AM [facility] Neutrophil Absolute 5.24 1.60 - 7.50 x10E9/L 12/10/2024 10:47 AM [facility] Lymphocyte Absolute 0.59(L) 1.00 - 4.40 x10E9/L 12/10/2024 10:47 AM [facility] Monocyte Absolute 1.36(H) 0.15 - 1.00 x10E9/L 12/10/2024 10:47 AM [facility] Eosinophil Absolute 0.08 0.00 - 0.60 x10E9/L 12/10/2024 10:47 AM [facility] Basophil Absolute 0.01 0.00 - 0.13 x10E9/L 12/10/2024 10:47 AM [facility] Blood BLOOD SPECIMEN / Unknown Lab Venipuncture / Unknown 12/10/2024 10:23 AM LEAD BUSINESS SYSTEMS ANALYST 12/10/2024 10:42 AM LEAD BUSINESS SYSTEMS ANALYST Lani Strange MD LAB - HEMATOLOGY ORD ERABLES [facility] [address] [place] [address], [facility] [phone] * XR Chest 2Vw (12/10/2024 9:48 AM LEAD BUSINESS SYSTEMS ANALYST) Anatomical Region Laterality Modality Chest Computed Radiogr aphy 12/10/2024 9:41 AM LEAD BUSINESS SYSTEMS ANALYST Narrative 12/10/2024 9:46 AM LEAD BUSINESS SYSTEMS ANALYST PROCEDURE: XR CHEST 2VW, DATE/TIME OF EXAM: 12/10/2024 9:32 AM, LOCATION [facility] INDICATION: S42.201A: Closed fracture of proximal [...] DATE/TIME OF EXAM: 12/10/2024 9:32 AM, LOCATION [facility] INDICATION: S42.201A: Closed fracture of proximal [...] Shoulder Right Wo Contrast (12/07/2024 7:58 AM LEAD BUSINESS SYSTEMS ANALYST) Anatomical Region Laterality Modality Upper Extremity Computed Tomogra phy 12/07/2024 8:29 AM LEAD BUSINESS SYSTEMS ANALYST Impressions 12/07/2024 9:21 AM LEAD BUSINESS SYSTEMS ANALYST IMPRESSION: Comminuted moderately displaced, angulated fracture of the humeral neck. This study was dictated by educational institution president Tyler Krishna MD and reviewed and edited by the attending. Alen Oneal MD have personally reviewed and interpreted this examination/study. > Interpreting Provider: Alen Martinez MD on 12/07/2024 9:21 AM Narrative 12/07/2024 9:21 AM LEAD BUSINESS SYSTEMS ANALYST PROCEDURE: CT SHOULDER RIGHT WO CONTRAST DATE/TIME [...] humeral neck. This study was dictated by educational institution president Tyler Krishna MD and reviewed and edited by the attending. I, Alen Martinez MD have personally reviewed and interpreted this examination/study. > Interpreting Provider: Alen Martinez MD on 12/07/2024 9:21 AM Lani Strange MD CT ORDERABLES from Last 3 Months Advance Directives * Full Code (Latest Code Status on File) Date Activated Date Inactivated Comments 12/20/2024 10:06 PM 12/22/2024 3:58 PM Care Teams Practice Professional Relationship Specialty Start Date End Date Salvador Love MD [address] [address] PCP - General Family Medicine 12/20/24
--- OUTSIDE RECORDS SUMMARY | 2024-12-25 11:32 | XMS_ITS | Patient Health Summary ---
Author Organization [facility] Address [address] [address] Care Team Providers Care Stitch Marker Name Role Phone Salvador Love MD Primary Care Provider [phone] Note from [facility],non-owned Affiliates and Associated Physician Practices is amultiple site organization consisting of ambulatory clinics and hospital sitesin [place], [place], [place] and [place]. This disclosure is being madepursuant to the Care Everywhere program and may not contain all information available regarding this patient. Last updated 18.[facility] Allergies * Penicillins(Other) Medications * Be [...] (Baqsimi One Pack) 3 MG/DOSE POWD(Started 08/20/2023) Grady 1 spray into the nose as needed * dorzolamide-timolol (Cosopt) 2-0.5 % ophthalmic solution(Started 10/06/2024) 1 (one) drop 2 times daily BOTH EYES * ReTenant Ultra Test test strip USE FOR GLUCOSE [...] hours for 10 days Ended Medications* HYDROcodone-acetaminophen ([place]) 5-325 MG tablet(Started 12/03/2024)(Discontinued) Take 1 (one) [...] Comments Blood Pressure 126/74 12/22/2024 8:02 AM VISCOSITY WORKER Pulse 76 12/22/2024 8:02 AM VISCOSITY WORKER Temperature 36.7 C (98 F) 12/22/2024 8:02 AM VISCOSITY WORKER Respiratory Rate 20 12/22/2024 8:02 AM VISCOSITY WORKER Oxygen Saturation 93% 12/22/2024 8:02 AM VISCOSITY WORKER Inhaled Oxygen Concentration - - Weight 106.6 kg (235 lb) 12/20/2024 10:58 AM VISCOSITY WORKER Height 180.3 cm (5' 11 ) 12/20/2024 10:58 AM VISCOSITY WORKER Body Mass Index 32.78 12/20/2024 10:58 AM VISCOSITY WORKER Medical Devices Implanted Type Area Equipment Scheduler Device Identifier Shelf Expiration Date Model / Serial / Lot Plate Std [id number] 5 Hl Shft Lck Implanted:Qty: 1 on 12/20/2024 by Lani Strange MD at [facility] Right: Humerus Synthes [employer]ha[employer].in [id number] / / Description:from vendor tray Cancellous Chips Implanted:Qty: 1 on 12/20/2024 by Lani Strange MD at [facility] Right: Humerus 03/04/2029 [id number] / [id number] / [id number] Screw 3.5mm 2.9mm 40mm T15 Ft Slf-Tap Implanted:Qty: 2 on 12/20/2024 by Lani Strange MD at [facility] Right: Humerus Synthes Usa 212.117 / / Description:from vendor tray Screw 3.5mm 2.9mm 30mm T15 Ft Slf-Tap Implanted:Qty: 3 on 12/20/2024 by Lani Strange MD at [facility] Right: Humerus [employer] 212.111 / / Description:from vendor tray Screw 3.5mm 2.9mm 45mm T15 Ft Slf-Tap Implanted:Qty: 4 on 12/20/2024 by Lani Strange MD at [facility] Right: Humerus [employer] 212.119 / / Description:from vendor tray Screw 3.5mm 2.9mm 55mm Ft Plv Slf-Tap Implanted:Qty: 1 on 12/20/2024 by Lani Strange MD at [facility] Right: Humerus [employer] 212.123 / / Description:from vendor tray Screw 3.5mm 2.9mm 38mm T15 Ft Slf-Tap Implanted:Qty: 1 on 12/20/2024 by aLni Strange MD at [facility] Right: Humerus [employer] 212.116 / / Description:from vendor tray Screw 3.5mm 6mm 32mm 2.5mm Ft Slf-Tap Implanted:Qty: 2 on 12/20/2024 by Lani Strange MD at [facility] Right: Humerus [employer] 204.832 / / Description:from vendor tray Screw 3.5mm 2.9mm 20mm T15 Ft Slf-Tap Implanted:Qty: 1 on 12/20/2024 by Lani Strange MD at [facility] Right: Humerus [employer] 212.106 / / Explanted Type Area Equipment Scheduler Device Identifier Shelf Expiration Date Model / Serial / Lot Screw 3.5mm 6mm 40mm 2.5mm Ft Slf-Tap Explanted:Qty: 1 on 12/20/2024 by Lani Strange MD at [facility] Right: Humerus Synthes [facility] 204.840 / / Description:from vendor tray Procedures [...] NOTE(Performed 12/20/2024) * PERIPHERAL BLOCK(Performed 12/20/2024) * DC OPEN TX PROXIMAL HUMERAL FRACTURE(Performed 12/20/2024) Performed [...] RADIOLOGY XRAY RESULTS ORDER (12/23/2024 8:25 PM VISCOSITY WORKER) Anatomical Region Laterality Modality Other Narrative 12/23/2024 8:25 PM VISCOSITY WORKER Ordered by an unspecified provider. Scanned Document IMAGING * CARDIAC RHYTHM STRIP ORDER (12/23/2024 6:35 PM VISCOSITY WORKER) Narrative 12/23/2024 6:35 PM VISCOSITY WORKER Ordered by an unspecified provider. Scanned Document CARDIAC SERVICES ORD ERABLES * PREPARE (CROSSMATCH) RBC UNIT(S), 2 Units (12/23/2024 1:41 AM VISCOSITY WORKER) Unit Description AS1 LR PRBC [facility] Unit ABO O [facility] Unit Rh POS [facility] Product Number R02 [facility] Unit Donor # [id number] [facility] C BLOOD BANK LAB Unit Status transfused [facility] B[facility] LAB Product Code [id number] [facility] Blood Type Barcode 5100 [facility] Expiration Date S [facility] Unit Description AS1 LR PRBC [facility] Unit ABO O [facility] Unit Rh POS [facility] Product Number R02 [facility] Unit Donor # [id number] [facility] C BLOOD BANK LAB Unit Status released [facility] BLO OD BANK LAB Product Code [id number] [facility] Blood Type Barcode 5100 [facility] Expiration Date [facility] B[facility] LAB Blood Bank BLOOD SPECIMEN / Unknown 12/20/2024 11:17 AM VISCOSITY WORKER Lani Strange MD LAB - BLOOD BANK ORD ERABLES [facility] [address] [place] [address] * (ABNORMAL) GLUCOSE - POINT OF CARE (12/22/2024 12:55 PM VISCOSITY WORKER) Only the most recent of15 resultswithin the time period is included. Pathologist [facility] Glucose WB/POC 289(H) 70 - 99 mg/dL 12/24/2024 9:00 AM VISCOSITY WORKER [facility] Specimen Type Cap Fingerstick 2024 9:00 AM VISCOSITY WORKER [facility] Blood BLOOD SPECIMEN / Unknown 12/22/2024 12:55 PM VISCOSITY WORKER 12/24/2024 9:00 AM VISCOSITY WORKER Lani Strange MD LAB - POINT OF CARE ORDERABLES Performing Organization Address [facility] Co de Phone Number [facility] [address] [place] [address] [phone] * TSH REFLEX FREE T4 (12/22/2024 7:42 AM VISCOSITY WORKER) [facility] TSH 1.896 0.350 - 4.940 uIU/mL 12/22/2024 10:14 AM VISCOSITY WORKER [facility] Blood BLOOD SPECIMEN / Unknown Lab Venipuncture / Unknown 12/22/2024 7:42 AM VISCOSITY WORKER 12/22/2024 8:25 AM VISCOSITY WORKER iQ Fay DO LAB - CHEMISTRY ORDE DONALD Performing Organization Address [facility] Co de Phone Number [facility] [address] [place], [place] [phone] * (ABNORMAL) HGB HCT PANEL (12/22/2024 7:42 AM VISCOSITY WORKER) Only the most recent of2 resultswithin the time period is included. [facility] Hemoglobin 10.4(L) 13.3 - 17.5 g/dL 12/22/2024 8:34 AM VISCOSITY WORKER [facility] Hematocrit 33.1(L) 38.7 - 51.1 % 12/22/2024 8:34 AM VISCOSITY WORKER [facility] Blood BLOOD SPECIMEN / Unknown Lab Venipuncture / Unknown 12/22/2024 7:42 AM VISCOSITY WORKER 12/22/2024 8:25 AM VISCOSITY WORKER Lani Strange MD LAB - HEMATOLOGY ORD ERABLES Performing Organization Address [facility] Co de Phone Number [facility] [address] [place] [address] [phone] * (ABNORMAL) COMPREHENSIVE METABOLIC PANEL (12/22/2024 7:42 AM VISCOSITY WORKER) Only the most recent of2 resultswithin the time period is included. [facility] Glucose 319(H) 70 - 99 mg/dL [...] Lab Venipuncture / Unknown 12/22/2024 7:42 AM VISCOSITY WORKER 12/22/2024 8:25 AM [facility] Lani Strange MD LAB - CHEMISTRY GREY BENNETT [facility] Organization Address City/State/ZIP Co de Phone Number [facility] [address] [place] [phone] * FOLATE (12/22/2024 7:42 AM VISCOSITY WORKER) Folate 14.6 7.0 - 31.4 ng/mL 12/22/2024 10:14 AM [facility] Blood BLOOD SPECIMEN / Unknown Lab Venipuncture / Unknown 12/22/2024 7:42 AM VISCOSITY WORKER 12/22/2024 8:25 AM VISCOSITY WORKER Qinahun Fay DO LAB - CHEMISTRY ORDApolinar BENNETT Performing Organization Address [facility] Co de Phone Number [facility] [address] [place] [phone] * (ABNORMAL) VITAMIN B12 (12/22/2024 7:42 AM VISCOSITY WORKER) Vitamin B12 1,087(H) 213 - 816 pg/mL 12/22/2024 12:41 PM [facility] Blood BLOOD SPECIMEN / Unknown Lab Venipuncture / Unknown 12/22/2024 7:42 AM VISCOSITY WORKER 12/22/2024 8:25 AM VISCOSITY WORKER Qinahun Wymantaniya WALKER LAB - CHEMISTRY ORDApolinar BENNETT Performing Organization Address [facility] Co de Phone Number [facility] [address] [place] [phone] * (ABNORMAL) IRON + TRANSFERRIN PANEL (12/22/2024 7:42 AM VISCOSITY WORKER) Iron 15(L) 50 - 175 ug/dL 12/22/2024 [...] Lab Venipuncture / Unknown 12/22/2024 7:42 AM VISCOSITY WORKER 12/22/2024 8:25 AM VISCOSITY WORKER Qi Fay DO LAB - CHEMISTRY GREY BENNETT Performing Organization Address [facility]/ZIP Co de Phone Number [facility] [address] [place], [place] [phone] * (ABNORMAL) BASIC METABOLIC PANEL (CALCIUM TOTAL) (12/21/2024 2:50 AM VISCOSITY WORKER) [facility] Glucose 288(H) 70 - 99 mg/dL [...] Lab Venipuncture / Unknown 12/21/2024 2:50 AM VISCOSITY WORKER 12/21/2024 3:20 AM VISCOSITY WORKER Lani Strange MD LAB - CHEMISTRY GREY BENNETT Performing Organization Address [facility]/ZIP Co de Phone Number [facility] [address] [place] [address] * XR SHOULDER RIGHT 2VW OR MORE (12/20/2024 9:06 PM VISCOSITY WORKER) Only the most recent of3 resultswithin the time period is included. Anatomical Region Laterality Modality Upper Extremity Radiographic Erna ging 12/21/2024 8:35 AM VISCOSITY WORKER Impressions 12/21/2024 8:37 AM VISCOSITY WORKER IMPRESSION: As above. > Interpreting Provider: Salvador Cavazos MD on 12/21/2024 8:37 AM Narrative 12/21/2024 8:37 AM VISCOSITY WORKER PROCEDURE: XR SHOULDER RIGHT 2VW OR MORE [...] * [place] [facility] (12/20/2024 8:13 PM VISCOSITY WORKER) Narrative [facility] - 12/20/2024 8:14 PM VISCOSITY WORKER For details of this study, please see the providers note. Lani Strange MD FLUOROSCOPY ORDERABL ES [facility] [address] [place] [address] * TRANSFUSE RED BLOOD CELL LEUKOREDUCED UNIT(S) (12/20/2024 6:29 PM VISCOSITY WORKER) Tang Flood MD NURSING - BLOOD PROD TRANSFUSION * ETT LINE PERFORMABLE (12/20/2024 2:18 PM VISCOSITY WORKER) Narrative [facility] APRN-CRNA - 12/20/2024 2:18 PM VISCOSITY WORKER [address] APRN-CRNA 12/20/2024 2:18 PM Endotracheal Tube Placement: Patient Location: OR. Intubation Event Date/Time: 12/20/2024 2:02 PM Procedure: intubation ([id number]) Procedure Section: Sedation: under general anesthesia. Indications [...] * Peripheral Nerve Block (12/20/2024 1:43 PM VISCOSITY WORKER) Narrative Tang Flood MD - 12/20/2024 1:43 PM VISCOSITY WORKER Tang Flood MD 12/20/2024 1:45 PM Peripheral [...] * BLOOD TYPE VERIFICATION (12/20/2024 11:21 AM VISCOSITY WORKER) ABO Rh O POS 12/20/2024 11:56 AM VISCOSITY WORKER [facility] Blood Bank BLOOD SPECIMEN / Unknown Venipuncture / Unknown 12/20/2024 11:21 AM VISCOSITY WORKER 12/20/2024 11:23 AM VISCOSITY WORKER Jerry Bingham MD LAB - BLOOD BANK ORD ERABLES [facility] [address] [phone] * TYPE + SCREEN PANEL (12/20/2024 11:17 AM VISCOSITY WORKER) ABO Rh O POS 12/20/2024 11:56 AM [facility] Comment:No history; collect retype. Antibody Screen NEG 11:56 AM VISCOSITY WORKER [facility] Blood Bank BLOOD SPECIMEN / Unknown Venipuncture / Unknown 12/20/2024 11:17 AM VISCOSITY WORKER 12/20/2024 11:17 AM VISCOSITY WORKER Lani Strange MD LAB - BLOOD BANK ORD ERABLES [facility] [address] [place], [place] [address] [phone] * (ABNORMAL) C-REACTIVE PROTEIN (12/10/2024 10:23 AM VISCOSITY WORKER) C-Reactive Protein 0.7(H) <=0.5 mg/dL 12/10/2024 11:25 AM [facility] Blood BLOOD SPECIMEN / Unknown Lab Venipuncture / Unknown 12/10/2024 10:23 AM VISCOSITY WORKER 12/10/2024 10:42 AM VISCOSITY WORKER Lani Strange MD LAB - CHEMISTRY ORDE [facility] [address] [address], [facility] [phone] * (ABNORMAL) CBC W/ DIFFERENTIAL (12/10/2024 10:23 AM VISCOSITY WORKER) WBC 7.3 4.0 - 10.7 x10E9/L 12/10/2024 10:47 AM [facility] RBC Count 5.21 4.30 - 5.80 x10E12/L 12/10/2024 10:47 AM [facility] Hemoglobin 12.9(L) 13.3 - 17.5 g/dL 12/10/2024 10:47 AM [facility] Hematocrit 40.5 38.7 - 51.1 % 12/10/2024 10:47 AM [facility] MCV 77.7(L) 80.0 - 98.0 fL 12/10/2024 10:47 AM [facility] MCH 24.8(L) 26.7 - 33.6 pg 12/10/2024 10:47 AM [facility] MCHC 31.9 31.7 - 36.3 g/dL 12/10/2024 10:47 AM [facility] RDW-CV 14.6 11.3 - 14.8 % 12/10/2024 10:47 AM [facility] Platelet Count 397 150 - 420 x10E9/L 12/10/2024 10:47 AM [facility] MPV 9.3 7.8 - 11.4 fL 12/10/2024 10:47 AM [facility] Neutrophil % 71.8 41.0 - 74.0 % 12/10/2024 10:47 AM [facility] Lymphocyte % 8.1(L) 17.0 - 47.0 % 12/10/2024 10:47 AM [facility] Monocyte % 18.6(H) 3.0 - 11.0 % 12/10/2024 10:47 AM [facility] Eosinophil % 1.1 0.0 - 7.0 % 12/10/2024 10:47 AM [facility] Basophil % 0.1 0.0 - 1.6 % 12/10/2024 10:47 AM [facility] Immature Granulocytes % 0.3 0.0 - 1.0 % 12/10/2024 10:47 AM [facility] Neutrophil Absolute 5.24 1.60 - 7.50 x10E9/L 12/10/2024 10:47 AM [facility] Lymphocyte Absolute 0.59(L) 1.00 - 4.40 x10E9/L 12/10/2024 10:47 AM [facility] Monocyte Absolute 1.36(H) 0.15 - 1.00 x10E9/L 12/10/2024 10:47 AM [facility] Eosinophil Absolute 0.08 0.00 - 0.60 x10E9/L 12/10/2024 10:47 AM VISCOSITY WORKER [facility] Basophil Absolute 0.01 0.00 - 0.13 x10E9/L 12/10/2024 10:47 AM [facility] Blood BLOOD SPECIMEN / Unknown Lab Venipuncture / Unknown 12/10/2024 10:23 AM VISCOSITY WORKER 12/10/2024 10:42 AM VISCOSITY WORKER Lani Strange MD LAB - HEMATOLOGY ORD ERABLES [facility] [address] [place] [address], [facility] [phone] * XR Chest 2Vw (12/10/2024 9:48 AM VISCOSITY WORKER) Anatomical Region Laterality Modality Chest Computed Radiogr aphy 12/10/2024 9:41 AM VISCOSITY WORKER Narrative 12/10/2024 9:46 AM VISCOSITY WORKER PROCEDURE: XR CHEST 2VW, DATE/TIME OF EXAM: 12/10/2024 9:32 AM, LOCATION [facility] INDICATION: S42.201A: Closed fracture of proximal [...] report was drafted by Leonora Cantu MD (secretary to the vice president) 12/10/2024 9:41 AM. ILaz MD have personally reviewed and interpreted this examination/study. > Interpreting Provider: Laz Villarreal MD on 12/10/2024 9:46 AM Procedure Note Laz Villarreal MD - 12/10/2024 PROCEDURE: XR CHEST 2VW, DATE/TIME OF EXAM: 12/10/2024 9:32 AM, LOCATION [facility] INDICATION: S42.201A: Closed fracture of proximal [...] report was drafted by Leonora Cantu MD (secretary to the vice president) 12/10/2024 9:41 AM. Laz Oneal MD have personally reviewed and interpreted this examination/study. > Interpreting Provider: Laz Villarreal MD on 12/10/2024 9:46 AM Lani Strange MD DIAGNOSTIC IMAGING O RDERABLES * CT Shoulder Right Wo Contrast (12/07/2024 7:58 AM VISCOSITY WORKER) Anatomical Region Laterality Modality Upper Extremity Computed Tomogra phy 12/07/2024 8:29 AM VISCOSITY WORKER Impressions 12/07/2024 9:21 AM VISCOSITY WORKER IMPRESSION: Comminuted moderately displaced, angulated fracture of the humeral neck. This study was dictated by residential finish carpenter Tyler Krishna MD and reviewed and edited by the attending. Alen Oneal MD have personally reviewed and interpreted this examination/study. > Interpreting Provider: Alen Martinez MD on 12/07/2024 9:21 AM Narrative 12/07/2024 9:21 AM VISCOSITY WORKER PROCEDURE: CT SHOULDER RIGHT WO CONTRAST DATE/TIME [...] neck. This study was dictated by residential finish carpenter Tyler Krishna MD and reviewed and edited [...] Not detected, Invalid 07/16/2020 10:29 PM CDT [facility] Microbiology SPECIMEN FROM NASOPHARYNGEAL STRUCTURE / Unknown Collection / Unknown 07/15/2020 12:40 PM CDT 07/16/2020 8:39 AM CDT Narrative [facility] - 07/16/2020 10:29 PM CDT This Real Time RT-PCR assay was developed and its performance characteristics determined by [facility]. This test has been authorized [...] Cardozo MD LAB - MICROBIOLOGY O RDERABLES [facility] [address] [place] [address], [facility] [phone] Care Teams Stitch Marker Relationship Specialty Start Date End Date Salvador Love MD [address] [place] [address] PCP - General Family Medicine 12/20/24
[2024-12-25] MEDS: MAGNESIUM CITRATE 300 ML BTL PO (11:53)
[2024-12-25 12:20] VITALS: BP 127/74; PULSE 96; RESP 18; O2SAT 98
== END 2024-12-25 12:20 | disposition home or self-care (01) ==
PROVIDERS: Emergency Provider Student in an Organized Health Care Education/Training Program; PCP Internal Medicine
DX: K59.00 Constipation, unspecified (principal)
CPT/HCPCS: 99283; A9270